=== PATIENT | female | born 1980 | race Hispanic/Latino ===

== ENCOUNTER 2019-09-27 14:05 | Emergency (ER) | payer OTHER, SELFPAY ==
[2019-09-27 14:25] VITALS: BP 134/93; PULSE 72; RESP 16; TEMP 37.1; O2SAT 98
--- NOTE | 2019-09-27 14:45 | ED.URI ---
HPI - URI/Sore Throat General Chief Complaint: Upper Respiratory Infection Stated Complaint: swollen face Time Seen by Provider: 09/27/19 14:28 Source: patient and RN notes reviewed Mode of arrival: ambulatory Limitations: no limitations History of Present Illness HPI Narrative: Patient presents today complaining of pain to her left maxillary sinus area and swelling. Reports this has been chronically occurring for the last 3 months with occasional associated ear pain, rhinorrhea. She was seen in June by her PCP who prescribed her doxycycline. States this worsened her symptoms, then she was placed on azithromycin, which did help. Recently she has been taking Sudafed, which has been providing relief. She is also been trying Tylenol, ibuprofen, Orajel, and Flonase. She does not believe the symptoms are related to dental issues. States that she has not been able to find an ENT recently. MD elicited complaint: sinus pain Related Data Home Medications Medication Instructions Recorded Confirmed citalopram mg 09/27/19 09/27/19 lubiprostone [Amitiza] mcg PO 09/27/19 Allergies Allergy/AdvReac Type Severity Reaction Status Date / Time amoxicillin AdvReac Nausea and Verified 09/27/19 14:30 Vomiting doxycycline AdvReac Anxiety Verified 09/27/19 14:30 Review of Systems Review of Systems: Narrative: CONSTITUTIONAL: Denies body aches, fever, chills, or sweats. EYES: Denies visual changes, redness, or discharge. ENT: Denies congestion, sore throat, or otalgia.+ Rhinorrhea, left ear pain, left sinus pain CARDIOVASCULAR: Denies chest pain, palpitations, or edema. RESPIRATORY: Denies cough or dyspnea. GASTROINTESTINAL: Denies abdominal pain, nausea, vomiting, or diarrhea. GENITOURINARY: Denies dysuria or hematuria. SKIN: Denies rash, itching, or wounds. MUSCULOSKELETAL: Denies back pain, joint pain, or myalgia. NEUROLOGIC: Denies headache, numbness, tingling, or weakness. PSYCH: Denies depression or anxiety. [facility] Past Medical History Medical History (Updated 09/27/19 @ 16:20 by Valencia Beth, BESSEMER CONVERTER BLOWER, ) Interstitial cystitis Irritable bowel syndrome Migraines Comments At time of signature, I have reviewed and agree with nursing past medical, surgical, social and family history unless otherwise noted. Please see nursing chart for further information. There is no relevant family history pertinent to the presenting complaint Exam Narrative: Exam Narrative: GENERAL: Well-appearing, well-nourished, and in no acute distress. HEAD: Normocephalic, atraumatic. EYES: EOMI. No redness or drainage. Conjunctivae normal. ENT: Mucous membranes pink and moist. Nares clear. No rhinorrhea. TMs normal bilaterally. Throat normal. Uvula midline. Abnormal dentition. Multiple missing teeth, broken teeth. No obvious periapical abscess or gingival swelling. No facial swelling noted. Tenderness to left maxillary sinus area. No erythema. Present teeth are nontender to percussion. NECK: Normal AROM. Supple. No lymphadenopathy. CHEST: No respiratory distress. EXTREMITIES: Normal range of motion. No edema. SKIN: Warm, dry, no rash. Capillary refill normal. Normal skin turgor. NEURO: No focal deficits. Alert and oriented x3. Gait steady. PSYCH: Normal affect. No signs of depression or anxiety. Course Vital Signs Vital signs: Vital Signs Temperature 98.8 F 09/27/19 14:25 Pulse Rate 72 09/27/19 14:25 Respiratory Rate 16 09/27/19 14:25 Blood Pressure 134/93 H 09/27/19 14:25 Pulse Oximetry 98 09/27/19 14:25 Temperature 98.8 F 09/27/19 14:25 Pulse Rate 72 09/27/19 14:25 Respiratory Rate 16 09/27/19 14:25 Blood Pressure 134/93 H 09/27/19 14:25 Pulse Oximetry 98 09/27/19 14:25 Reviewed. Pt has been instructed to follow up with her PCP regarding her elevated blood pressure today. MDM - URI/Sore Throat Differential Diagnosis Differential diagnosis: Likely otitis media, sinusitis and other
== END 2019-09-27 14:52 | disposition home or self-care (01) ==
PROVIDERS: Emergency Provider Nurse Practitioner; PCP Family Medicine
DX: J34.89 Other specified disorders of nose and nasal sinuses (principal); K58.9 Irritable bowel syndrome, unspecified; R03.0 Elevated blood-pressure reading, without diagnosis of hypertension
CPT/HCPCS: 99213; G0463

== ENCOUNTER 2020-05-10 11:53 | Outpatient (CLI) | payer OTHER, BC, SELFPAY ==
[2020-05-10 12:25] LABS: Basophils Absolute Auto 0.01 K/mm3 (0.00-0.10); Basophils Percent Auto 0.1 % (0.0-1.0); Eosinophils Absolute Auto 0.17 K/mm3 (0.02-0.50); Eosinophils Percent Auto 1.7 % (1.0-6.0); Hematocrit 38.8 % (35.0-49.0); Hemoglobin 12.8 g/dL (12.0-15.0); Immature Granulocyte Absolute 0.03 K/mm3 (0.00-0.00); Immature Granulocyte Percent A 0.3 % (0.0-0.0); Lymphocytes Absolute Auto 3.23 K/mm3 (1.10-4.50); Mean Corpuscular Hemoglobin 26.6 pg (27.0-31.0); Mean Corpuscular Volume 80.7 fL (78.0-102.0); Mean Platelet Volume 10.6 fl (9.2-11.8); Monocytes Absolute Auto 0.49 K/mm3 (0.10-0.90); Neutrophils Absolute Auto 5.9 K/mm3 (1.7-7.2); Neutrophils Percent Auto 59.9 % (50.0-70.0); Platelet Count Result 357 K/mm3 (150-420); Red Blood Count 4.81 M/mm3 (4.20-5.40); Red Cell Distribution Width 13.6 % (11.6-14.4); White Blood Count 9.8 K/mm3 (4.8-10.8)
[2020-05-10 12:45] LABS: Alanine Aminotransferase 6 U/L (14-59); Albumin Level 3.6 g/dL (3.4-5.0); Alkaline Phosphatase 105 U/L (46-116); Anion Gap 9 mmol/L (8-16); Aspartate Amino Transferase 13 U/L (15-37); Bilirubin,Total 0.4 mg/dL (0.00-1.00); Blood Urea Nitrogen 10 mg/dL (7-18); Carbon Dioxide 25 mmol/L (21-32); Chloride 104 mmol/L (98-108); Estimated Glomerular Filt Rate > 60; Glucose 82 mg/dL (70-99); Osmolality Calculated 284 mOsm/kg (285-295); Potassium 4.1 mmol/L (3.5-5.1); Sodium 138 mmol/L (136-145); Thyroid Stimulating Hormone 1.33 uIU/mL (0.36-3.74); Total Protein 8.1 g/dL (6.4-8.2); Troponin I 4.7 ng/L (0.00-60.4)
== END 2020-05-10 11:54 | disposition home or self-care (01) ==
LOC: CHSLAB 11:59
PROVIDERS: PCP Family Medicine; Visit Provider Family Medicine
DX: R42 Dizziness and giddiness (principal); R07.89 Other chest pain
CPT/HCPCS: 36415; 80053; 84443; 84484; 85025

== ENCOUNTER 2020-10-18 11:54 | Outpatient (CLI) | payer OTHER, BC, SELFPAY ==
--- NOTE | ~2020-10-18 | XR_ITS ---
EXAMINATION: XR abdomen obstructive series DATE: 10/18/2020 12:30 INDICATION: Abdominal pain TECHNIQUE: Supine and upright views of the abdomen. FINDINGS: 09/06/2013 The visualized lung parenchyma is normal.. There is a bowel gas pattern. Gas and stool are seen throu ghout the colon to the level of the rectum. There is no free air. There are surgical changes of vent ral hernia repair and cholecystectomy. IMPRESSION: 1. No acute abdominal abnormality. Reviewed, dictated and finalized at location B.
[2020-10-18 12:15] LABS: Basophils Absolute Auto 0.01 K/mm3 (0.00-0.10); Basophils Percent Auto 0.1 % (0.0-1.0); Eosinophils Absolute Auto 0.13 K/mm3 (0.02-0.50); Eosinophils Percent Auto 1.5 % (1.0-6.0); Hematocrit 40.7 % (35.0-49.0); Hemoglobin 13.2 g/dL (12.0-15.0); Immature Granulocyte Absolute 0.02 K/mm3 (0.00-0.00); Immature Granulocyte Percent A 0.2 % (0.0-0.0); Lymphocytes Absolute Auto 3.38 K/mm3 (1.10-4.50); Lymphocytes Percent Auto 37.7 % (18.0-42.0); Mean Corpuscular HGB Conc 32.4 g/dL (32.0-36.0); Mean Corpuscular Hemoglobin 26.8 pg (27.0-31.0); Mean Corpuscular Volume 82.7 fL (78.0-102.0); Mean Platelet Volume 10.8 fl (9.2-11.8); Monocytes Absolute Auto 0.45 K/mm3 (0.10-0.90); Neutrophils Percent Auto 55.5 % (50.0-70.0); Platelet Count Result 326 K/mm3 (150-420); Red Blood Count 4.92 M/mm3 (4.20-5.40); Red Cell Distribution Width 13.8 % (11.6-14.4)
[2020-10-18 12:16] LABS: Add Urine Microscopic? YES; Appearance Urine Sl Cloudy (Clear); Bilirubin Urine 1+ (Negative); Blood Urine Negative (Negative); Color Urine Yellow (Yellow); Glucose Urine UA Negative (Negative); Ketones Urine Negative (Negative); Leukocyte Esterase Ur Negative LEU/UL (Negative); Nitrate Urine Negative (Negative); Protein Urine Negative (Negative); Specific Grav Ur >= 1.030 (1.010-1.020)
[2020-10-18 12:27] LABS: RBC Urine 0-2 /hpf (0-2)
[2020-10-18 12:28] LABS: Bacteria Urine 3+ /hpf; Mucus Urine Moderate /lpf; Squamous Epithelial Cell Urine Few /hpf (Few); WBC Urine 0-3 /hpf (0-3)
[2020-10-18 13:03] LABS: Alanine Aminotransferase 46 U/L (14-59); Albumin Level 3.6 g/dL (3.4-5.0); Alkaline Phosphatase 123 U/L (46-116); Amylase 37 U/L (25-115); Anion Gap 11 mmol/L (8-16); Aspartate Amino Transferase 33 U/L (15-37); Bilirubin,Total 0.5 mg/dL (0.00-1.00); Blood Urea Nitrogen 8 mg/dL (7-18); Calcium 9.1 mg/dL (8.5-10.1); Carbon Dioxide 27 mmol/L (21-32); Chloride 104 mmol/L (98-108); Estimated Glomerular Filt Rate > 60; Glucose 89 mg/dL (70-99); Lipase 96 U/L (73-393); Osmolality Calculated 291 mOsm/kg (285-295); Potassium 3.7 mmol/L (3.5-5.1); Sodium 142 mmol/L (136-145); Thyroid Stimulating Hormone 0.69 uIU/mL (0.36-3.74); Total Protein 7.1 g/dL (6.4-8.2)
== END 2020-10-18 11:55 | disposition home or self-care (01) ==
PROVIDERS: PCP Family Medicine; Visit Provider Family Medicine
DX: R10.817 Generalized abdominal tenderness (principal); K59.00 Constipation, unspecified
CPT/HCPCS: 36415; 74019; 80053; 81001; 82150; 83690; 84443; 85025

== ENCOUNTER 2020-11-13 03:35 | Emergency (ER) | payer OTHER, BC, SELFPAY ==
[2020-11-13 03:44] VITALS: BP 139/82; PULSE 68; RESP 20; TEMP 36.7; O2SAT 99
--- NOTE | 2020-11-13 04:28 | PC.NURSE ---
Pt ambulatory to triage desk requesting update on wait time. This RN apologized and let pt know that all staff currently assisting with critical pts and unable to provide specific times. Pt then reported that she was 'just gonna go home.' This RN asked pt if she would sign an AMA form, to which pt responded Well, I wasn't seen. I'm not gonna be charged for this, am I? I then let pt know that I had no knowledge of the hospital's billing practices. Pt then left ED wr, ambulating out of lobby withe steady, even, unassisted gait. no vomiting, diarrhea, or s/s of distress seen during this visit. ED pharmacist in charge updated.
== END 2020-11-13 04:28 | disposition left against medical advice (07) ==
LOC: ANHED 04:44
PROVIDERS: PCP Family Medicine
DX: R10.32 Left lower quadrant pain (principal)
CPT/HCPCS: 99199

== ENCOUNTER 2020-11-15 11:02 | Outpatient (CLI) | payer OTHER, BC, SELFPAY ==
--- NOTE | ~2020-11-15 | XR_ITS ---
EXAMINATION: XR abdomen obstructive series DATE: 11/15/2020 11:52 INDICATION: Left lower quadrant pain TECHNIQUE: Upright and supine views of the abdomen were obtained. COMPARISON: 10/18/2020 FINDINGS: The bowel gas pattern is normal. No free intraperitoneal gas is identified. There are no di lated loops of bowel. Changes of mesh ventral hernia repair are noted. Surgical clips in the right up per quadrant are likely from prior cholecystectomy. The visualized lung bases are clear. IMPRESSION: 1. No radiographic correlate for the patient's symptoms. Reviewed, dictated and finalized at location B.
[2020-11-15 11:14] LABS: Basophils Absolute Auto 0.01 K/mm3 (0.00-0.10); Basophils Percent Auto 0.1 % (0.0-1.0); Eosinophils Absolute Auto 0.08 K/mm3 (0.02-0.50); Eosinophils Percent Auto 0.8 % (1.0-6.0); Hematocrit 42.5 % (35.0-49.0); Hemoglobin 13.9 g/dL (12.0-15.0); Immature Granulocyte Absolute 0.03 K/mm3 (0.00-0.00); Immature Granulocyte Percent A 0.3 % (0.0-0.0); Lymphocytes Absolute Auto 3.41 K/mm3 (1.10-4.50); Mean Corpuscular HGB Conc 32.7 g/dL (32.0-36.0); Mean Corpuscular Volume 82.7 fL (78.0-102.0); Mean Platelet Volume 10.8 fl (9.2-11.8); Neutrophils Percent Auto 59.8 % (50.0-70.0); Platelet Count Result 366 K/mm3 (150-420); Red Blood Count 5.14 M/mm3 (4.20-5.40); Red Cell Distribution Width 13.6 % (11.6-14.4)
[2020-11-15 11:19] LABS: Add Urine Microscopic? YES; Appearance Urine Clear (Clear); Bilirubin Urine 1+ (Negative); Blood Urine Negative (Negative); Color Urine Yellow (Yellow); Glucose Urine UA Negative (Negative); Ketones Urine Trace (Negative); Leukocyte Esterase Ur Negative LEU/UL (Negative); Nitrate Urine Negative (Negative); Protein Urine Negative (Negative); Specific Grav Ur >= 1.030 (1.010-1.020)
[2020-11-15 11:27] LABS: Bacteria Urine Trace /hpf; Mucus Urine Moderate /lpf; RBC Urine None seen /hpf (0-2); Squamous Epithelial Cell Urine Rare /hpf (Few); WBC Urine None seen /hpf (0-3)
[2020-11-15 12:18] LABS: Alanine Aminotransferase 22 U/L (14-59); Albumin Level 3.8 g/dL (3.4-5.0); Alkaline Phosphatase 123 U/L (46-116); Amylase 37 U/L (25-115); Anion Gap 13 mmol/L (8-16); Aspartate Amino Transferase 10 U/L (15-37); Bilirubin,Total 0.5 mg/dL (0.00-1.00); Blood Urea Nitrogen 9 mg/dL (7-18); Calcium 9.6 mg/dL (8.5-10.1); Carbon Dioxide 26 mmol/L (21-32); Chloride 105 mmol/L (98-108); Estimated Glomerular Filt Rate > 60; Glucose 82 mg/dL (70-99); Lipase 74 U/L (73-393); Osmolality Calculated 295 mOsm/kg (285-295); Potassium 4.2 mmol/L (3.5-5.1); Sodium 144 mmol/L (136-145); Total Protein 7.5 g/dL (6.4-8.2)
== END 2020-11-15 11:03 | disposition home or self-care (01) ==
PROVIDERS: PCP Family Medicine; Visit Provider Family Medicine
DX: R10.32 Left lower quadrant pain (principal)
CPT/HCPCS: 36415; 74019; 80053; 81001; 82150; 83690; 85025

== ENCOUNTER 2020-12-06 11:55 | Outpatient (CLI) | payer OTHER, BC, SELFPAY ==
--- NOTE | ~2020-12-06 | XR_ITS ---
XR thoracic spine 3V DATE: 12/06/2020 12:30 INDICATION: Back pain, chest pain TECHNIQUE: AP, lateral, swimmer views COMPARISON: None FINDINGS: There is mild degenerative spurring of the thoracic spine. No fracture or bone destruction. The thoracic pedicles are intact. No paraspinal soft tissue thickening. IMPRESSION: Mild degenerative spurring Reviewed, dictated and finalized at location A. IMPRESSION: Mild degenerative spurring
--- NOTE | ~2020-12-06 | XR_ITS ---
XR chest 2V DATE: 12/06/2020 12:29 INDICATION: Chest pain, back pain TECHNIQUE: PA and lateral views COMPARISON: 12/02/2018 2 view chest FINDINGS: Normal heart size. No hilar or mediastinal enlargement. No pulmonary infiltrate or consolid ation, pleural effusion or pulmonary vascular congestion or pneumothorax. Surgical clips overlie the upper abdomen on lateral view, likely due to cholecystectomy. IMPRESSION: No active cardiopulmonary disease Reviewed, dictated and finalized at location A.
--- NOTE | ~2020-12-06 | XR_ITS ---
XR lumbar spine 2-3V DATE: 12/06/2020 12:29 INDICATION: Back pain TECHNIQUE: AP, lateral, coned lateral lumbosacral views COMPARISON: 02/13/2016 lumbar spine FINDINGS: Normal alignment. Lumbar and lumbosacral interspaces are well preserved. No fracture or bon e destruction. The pedicles are intact. Lumbar and lumbosacral interspaces are well preserved. The sa croiliac joints appear normal. Status post ventral abdominal wall repair. Status post cholecystectomy. IMPRESSION: Normal lumbar spine Reviewed, dictated and finalized at location A. IMPRESSION: Normal lumbar spine
[2020-12-06 12:12] LABS: Basophils Absolute Auto 0.01 K/mm3 (0.00-0.10); Basophils Percent Auto 0.1 % (0.0-1.0); Eosinophils Absolute Auto 0.08 K/mm3 (0.02-0.50); Hematocrit 40.2 % (35.0-49.0); Hemoglobin 13.1 g/dL (12.0-15.0); Immature Granulocyte Absolute 0.02 K/mm3 (0.00-0.00); Immature Granulocyte Percent A 0.2 % (0.0-0.0); Lymphocytes Percent Auto 37.8 % (18.0-42.0); Mean Corpuscular HGB Conc 32.6 g/dL (32.0-36.0); Mean Corpuscular Hemoglobin 27.2 pg (27.0-31.0); Mean Corpuscular Volume 83.6 fL (78.0-102.0); Monocytes Absolute Auto 0.41 K/mm3 (0.10-0.90); Neutrophils Absolute Auto 4.6 K/mm3 (1.7-7.2); Neutrophils Percent Auto 55.9 % (50.0-70.0); Platelet Count Result 340 K/mm3 (150-420); Red Blood Count 4.81 M/mm3 (4.20-5.40); Red Cell Distribution Width 13.1 % (11.6-14.4); White Blood Count 8.2 K/mm3 (4.8-10.8)
[2020-12-06 12:37] LABS: Alanine Aminotransferase 40 U/L (14-59); Albumin Level 3.5 g/dL (3.4-5.0); Alkaline Phosphatase 118 U/L (46-116); Anion Gap 10 mmol/L (8-16); Aspartate Amino Transferase 18 U/L (15-37); Bilirubin,Total 0.3 mg/dL (0.00-1.00); Blood Urea Nitrogen 10 mg/dL (7-18); Carbon Dioxide 27 mmol/L (21-32); Chloride 106 mmol/L (98-108); Creatine Kinase 50 U/L (26-192); Estimated Glomerular Filt Rate > 60; Glucose 87 mg/dL (70-99); Osmolality Calculated 294 mOsm/kg (285-295); Potassium 3.6 mmol/L (3.5-5.1); Sodium 143 mmol/L (136-145); Thyroid Stimulating Hormone 0.76 uIU/mL (0.36-3.74); Total Protein 7.8 g/dL (6.4-8.2)
[2020-12-06 12:48] LABS: Creatine Kinase MB < 0.50 ng/mL (0.00-5.00); Troponin I < 4.0 ng/L (0.00-60.4)
== END 2020-12-06 11:56 | disposition home or self-care (01) ==
PROVIDERS: PCP Family Medicine; Visit Provider Family Medicine
DX: R07.9 Chest pain, unspecified (principal); M54.9 Dorsalgia, unspecified; K59.00 Constipation, unspecified
CPT/HCPCS: 36415; 71046; 72072; 72100; 80053; 82550; 82553; 84443; 84484; 85025

== ENCOUNTER 2020-12-21 09:05 | Outpatient (CLI) | payer OTHER, BC, SELFPAY | END 2020-12-21 09:06 | disposition home or self-care (01) | LOC: CHSCARD 09:08 | PROVIDERS: PCP Family Medicine; Visit Provider Family Medicine | DX: R06.00 Dyspnea, unspecified (principal) | CPT/HCPCS: 94060; 94726; 94729 ==

== ENCOUNTER 2021-02-28 16:13 | Outpatient (CLI) | payer OTHER, BC, SELFPAY ==
--- NOTE | ~2021-02-28 | XR_ITS ---
XR lumbar spine 2-3V DATE: 02/28/2021 16:53 INDICATION: Low back pain, right hip pain. TECHNIQUE: AP, lateral, coned lateral lumbosacral views COMPARISON: 12/06/2020 lumbar spine FINDINGS: Normal alignment of the lumbar spine. No fracture or bone destruction or spondylolisthesis. Lumbar and lumbosacral interspaces are well preserved. The pedicles are intact. The sacroiliac joint s appear normal. Status post cholecystectomy. Status post lower ventral abdominal wall repair. IMPRESSION: Normal lumbar spine Reviewed, dictated and finalized at location A. IMPRESSION: Normal lumbar spine
--- NOTE | ~2021-02-28 | XR_ITS ---
XR hip RT min 2V DATE: 02/28/2021 16:53 INDICATION: Right hip pain for 6 months. No injury. TECHNIQUE: AP and lateral views COMPARISON: None FINDINGS: No fracture or dislocation, avascular necrosis or bone destruction. Hip joint space is well preserved. The pubic symphysis and right sacral iliac joint are intact. Ventral abdominal wall hernia repair IMPRESSION: . Negative right hip Reviewed, dictated and finalized at location A. IMPRESSION: . Negative right hip
[2021-03-02 17:04] LABS: TB Skin Test Erythema 0 mm; TB Skin Test Induration 0 mm (0-10); TB Skin Test Site Right Arm
[2021-03-02 17:05] LABS: TB Skin Test Interpretation Negative (Negative)
== END 2021-02-28 16:14 | disposition home or self-care (01) ==
LOC: CHSLAB 16:16
PROVIDERS: PCP Family Medicine; Visit Provider Family Medicine
DX: Z11.1 Encounter for screening for respiratory tuberculosis (principal); M25.551 Pain in right hip; M54.50 Low back pain, unspecified
CPT/HCPCS: 36415; 72100; 73502; 86580

== ENCOUNTER 2021-03-15 16:01 | Outpatient (CLI) | payer OTHER, SELFPAY ==
--- NOTE | ~2021-03-15 | XR_ITS ---
EXAMINATION: XR chest 2V EXAM DATE: 03/15/2021 16:37 INDICATION: anterior upper chest pain x5 days w/ SOB. TECHNIQUE: Frontal and lateral projections of the chest obtained and reviewed. Comparison is made to prior examination from 12/06/2020. FINDINGS: The lungs are clear. There are no pleural effusions. The cardiomediastinal silhouette is within normal limits. There is no pneumothorax suspected. The bones and soft tissues are unremarkab le. There are cholecystectomy clips. IMPRESSION: Normal chest x-ray exam. Reviewed, dictated and finalized at location B. 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
[2021-03-15 16:19] LABS: Basophils Absolute Auto 0.02 K/mm3 (0.00-0.10); Basophils Percent Auto 0.2 % (0.0-1.0); Eosinophils Absolute Auto 0.09 K/mm3 (0.02-0.50); Eosinophils Percent Auto 1.1 % (1.0-6.0); Hematocrit 41.6 % (35.0-49.0); Hemoglobin 13.2 g/dL (12.0-15.0); Immature Granulocyte Absolute 0.03 K/mm3 (0.00-0.00); Immature Granulocyte Percent A 0.4 % (0.0-0.0); Lymphocytes Absolute Auto 2.48 K/mm3 (1.10-4.50); Lymphocytes Percent Auto 29.3 % (18.0-42.0); Mean Corpuscular HGB Conc 31.7 g/dL (32.0-36.0); Mean Corpuscular Hemoglobin 26.3 pg (27.0-31.0); Mean Platelet Volume 10.3 fl (9.2-11.8); Monocytes Absolute Auto 0.34 K/mm3 (0.10-0.90); Neutrophils Absolute Auto 5.5 K/mm3 (1.7-7.2); Platelet Count Result 364 K/mm3 (150-420); Red Blood Count 5.01 M/mm3 (4.20-5.40); Red Cell Distribution Width 13.7 % (11.6-14.4); White Blood Count 8.5 K/mm3 (4.8-10.8)
[2021-03-15 16:39] LABS: D Dimer 0.65 mg/L (0.19-0.50)
[2021-03-15 16:45] LABS: Alanine Aminotransferase 16 U/L (14-59); Albumin Level 3.7 g/dL (3.4-5.0); Alkaline Phosphatase 114 U/L (46-116); Anion Gap 11 mmol/L (8-16); Aspartate Amino Transferase < 10 U/L (15-37); Bilirubin,Total 0.4 mg/dL (0.00-1.00); Blood Urea Nitrogen 11 mg/dL (7-18); Calcium 8.9 mg/dL (8.5-10.1); Carbon Dioxide 25 mmol/L (21-32); Chloride 104 mmol/L (98-108); Estimated Glomerular Filt Rate > 60; Glucose 91 mg/dL (70-99); Osmolality Calculated 289 mOsm/kg (285-295); Potassium 3.7 mmol/L (3.5-5.1); Sodium 140 mmol/L (136-145); Total Protein 7.6 g/dL (6.4-8.2); Troponin I 4.5 ng/L (0.00-60.4)
[2021-03-15 16:46] LABS: Creatine Kinase MB < 0.50 ng/mL (0.00-5.00)
== END 2021-03-15 16:02 | disposition home or self-care (01) ==
LOC: CHSLAB 16:03
PROVIDERS: PCP Family Medicine; Visit Provider Family Medicine
DX: R07.89 Other chest pain (principal)
CPT/HCPCS: 36415; 71046; 80053; 82553; 84484; 85025; 85380

== ENCOUNTER 2021-03-15 16:57 | Emergency (ER) | payer OTHER, SELFPAY ==
--- NOTE | ~2021-03-15 | CT_ITS ---
EXAMINATION: CTA chest PE protocol DATE: 03/15/2021 17:52 INDICATION: 5 days of chest pain and shortness of breath TECHNIQUE: Computed tomography (CT) pulmonary angiogram of the chest was performed with 100 mL Omnipa que-350 intravenous contrast. Additional 3D reconstructions utilizing coronal maximum intensity proje ction (MIP) were performed. The dose-length product was 836.53 mGy-cm. COMPARISON: None FINDINGS: Excellent contrast opacification of the pulmonary arteries. There is mild streak artifact from dense contrast in the superior vena cava and right atrium. No significant motion artifact yielding diagnost ic quality study which demonstrates no pulmonary embolism. No pneumonia, pulmonary edema, pleural eff usion or pneumothorax. Heart size is normal. No pericardial effusion. Thoracic aorta is normal in leslye iber with no dissection. No pathologically enlarged thoracic lymphadenopathy. Visualized upper abdome n and bones are unremarkable. IMPRESSION: 1. No pulmonary embolism or other acute cardiopulmonary disease. Reviewed, dictated and finalized at location A. 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
--- NOTE | 2021-03-15 17:05 | ED.RECABL ---
HPI - Recheck/Abnormal Lab/Rx General Chief Complaint: Unspecified Stated Complaint: high d dimer Source: patient and RN notes reviewed Mode of arrival: ambulatory Limitations: no limitations History of Present Illness HPI narrative: Patient has been having some burning in her chest and feeling short of breath at times for the last 5 days. She called her doctor today and had some outpatient labs done. One of them was a D-dimer that was subsequently elevated. She comes in now because she was told to come in because of the elevated D-dimer. She has no pain in her calves. She is not been injured, immobilized for the last 4 weeks, she is not on any estrogen, she is also a nonsmoker. MD complaint: abnormal lab Returns today for: called because of abnormal lab/test Associated symptoms: chest pain and shortness of breath Related Data Home Medications Medication Instructions Recorded Confirmed citalopram [Celexa] 40 mg PO DAILY 09/27/19 03/15/21 lubiprostone [Amitiza] 8 mcg PO DAILY 09/27/19 03/15/21 metoclopramide HCl [Reglan] 10 mg PO Q6H PRN 03/15/21 03/15/21 pregabalin [Lyrica] 150 mg PO DAILY 03/15/21 03/15/21 Allergies Allergy/AdvReac Type Severity Reaction Status Date / Time amoxicillin AdvReac Nausea and Verified 11/13/20 03:52 Vomiting doxycycline AdvReac Anxiety Verified 11/13/20 03:52 Sulfa (Sulfonamide AdvReac Nausea Verified 03/15/21 17:23 Antibiotics) Review of Systems Review of Systems: All systems reviewed & are unremarkable except as noted in HPI and below PMFSH Past Medical History Medical History (Updated 03/15/21 @ 18:24 by Denton Gore MD) Fibromyalgia Interstitial cystitis Irritable bowel syndrome Migraines Surgical History Surgical History (Updated 03/15/21 @ 17:28 by Denton Gore MD) H/O: hysterectomy History of ventral hernia repair Hx of cholecystectomy Exam Const: General: healthy appearing and no acute distress Nutritional Appearance: well nourished and obese centrally obese Orientation/consciousness: patient oriented x3 Other: female nurse in room during examination. HENMT: Head: normal to inspection Ears: external ears normal Face and sinus: normal facial exam Eyes: Conjunctivae: conjunctivae normal Pupils: Equal, round and reactive pupils present EOM: EOMs intact bilaterally Neck: Neck: normal visual inspection Resp: Effort & Inspection: normal respiratory effort Auscultation: clear to auscultation bilaterally Cardio: Rate: regular rate Rhythm: regular rhythm GI: Auscultation: normal bowel sounds Back/Spine/Pelvis: Cervical Spine: cervical ROM normal Thoracic/Lumbar Spine: thoraco-lumbar ROM normal Extrem: General: normal to inspection, no clubbing, cyanosis or edema and no calf tenderness Psych: Appearance: grossly normal and well kempt Mental Status: mental status grossly normal Affect: normal affect Attitude: cooperative Thought content: Yes Normal thought content present Course Course Emergency Course: I reviewed outpatient labs including CBC, CMP, troponin, D-dimer which is the only thing abnormal. I discussed with the patient her 4 PEPS score which is a -3 indicating a very low probability for pulmonary embolism. After discussion patient still wanted to proceed with CT scan for PE study of her lungs. Vital Signs Vital signs: Vital Signs Temperature 36.4 C 03/15/21 17:32 Pulse Rate 60 03/15/21 17:32 Respiratory Rate 16 03/15/21 17:32 Blood Pressure 155/86 H 03/15/21 17:32 Pulse Oximetry 100 03/15/21 17:32 Temperature 36.6 C 03/15/21 18:37 Pulse Rate 66 03/15/21 18:37 Respiratory Rate 16 03/15/21 18:37 Blood Pressure 150/67 H 03/15/21 18:37 Pulse Oximetry 100 03/15/21 18:37 MDM - Recheck/Abnormal Lab/Rx Lab Data Attestation: I reviewed the patient's lab results. Imaging Data Radiologist's impression: CT negative for PE or any other abnormality. Discharge Plan Discharge Clin[facility]
[2021-03-15 17:32] VITALS: BP 155/86; PULSE 60; RESP 16; TEMP 36.4; O2SAT 100
[2021-03-15 18:37] VITALS: BP 150/67; PULSE 66; RESP 16; TEMP 36.6; O2SAT 100
== END 2021-03-15 18:38 | disposition home or self-care (01) ==
PROVIDERS: Emergency Provider Emergency Medicine; PCP Family Medicine
DX: R07.89 Other chest pain (principal)
CPT/HCPCS: 71275; 99282; 99284; Q9967

== ENCOUNTER 2021-04-17 15:44 | Outpatient (CLI) | payer OTHER, SELFPAY ==
[2021-04-17 17:52] LABS: SARS-CoV-2 RNA PCR Negative (Negative)
== END 2021-04-17 15:45 | disposition home or self-care (01) ==
LOC: CHSLAB 15:46
PROVIDERS: PCP Family Medicine; Visit Provider Family Medicine
DX: J00 Acute nasopharyngitis [common cold] (principal); Z20.822 Contact with and (suspected) exposure to COVID-19
CPT/HCPCS: C9803; U0003; U0005

== ENCOUNTER 2021-05-10 09:51 | Outpatient (CLI) | payer BC, SELFPAY ==
--- NOTE | ~2021-05-10 | XR_ITS ---
EXAMINATION: XR chest 2V DATE: 05/10/2021 10:29 INDICATION: Cough. TECHNIQUE: Frontal and lateral views of the chest were obtained. COMPARISON: Chest 2 views 03/15/2021 FINDINGS: The chest demonstrates clear lungs without pneumonia, pleural effusion, or pneumothorax. Th e heart size is normal. Surgical clips in the right upper quadrant are likely from cholecystectomy. IMPRESSION: 1. No acute cardiopulmonary disease. Reviewed, dictated and finalized at location B. 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
[2021-05-10 10:11] LABS: Basophils Absolute Auto 0.01 K/mm3 (0.00-0.10); Basophils Percent Auto 0.1 % (0.0-1.0); Eosinophils Absolute Auto 0.08 K/mm3 (0.02-0.50); Eosinophils Percent Auto 1.1 % (1.0-6.0); Hematocrit 44.3 % (35.0-49.0); Hemoglobin 14.4 g/dL (12.0-15.0); Immature Granulocyte Absolute 0.02 K/mm3 (0.00-0.00); Immature Granulocyte Percent A 0.3 % (0.0-0.0); Lymphocytes Absolute Auto 2.79 K/mm3 (1.10-4.50); Lymphocytes Percent Auto 36.9 % (18.0-42.0); Mean Corpuscular HGB Conc 32.5 g/dL (32.0-36.0); Mean Corpuscular Hemoglobin 26.7 pg (27.0-31.0); Mean Corpuscular Volume 82.2 fL (78.0-102.0); Mean Platelet Volume 10.7 fl (9.2-11.8); Monocytes Percent Auto 5.3 % (2.0-11.0); Neutrophils Absolute Auto 4.3 K/mm3 (1.7-7.2); Neutrophils Percent Auto 56.3 % (50.0-70.0); Platelet Count Result 390 K/mm3 (150-420); Red Blood Count 5.39 M/mm3 (4.20-5.40); Red Cell Distribution Width 13.5 % (11.6-14.4); White Blood Count 7.6 K/mm3 (4.8-10.8)
[2021-05-10 10:34] LABS: Alanine Aminotransferase 13 U/L (14-59); Albumin Level 3.8 g/dL (3.4-5.0); Alkaline Phosphatase 114 U/L (46-116); Anion Gap 10 mmol/L (8-16); Aspartate Amino Transferase < 10 U/L (15-37); Bilirubin,Total 0.5 mg/dL (0.00-1.00); Blood Urea Nitrogen 9 mg/dL (7-18); Calcium 9.1 mg/dL (8.5-10.1); Carbon Dioxide 27 mmol/L (21-32); Chloride 103 mmol/L (98-108); Creatine Kinase 38 U/L (26-192); Estimated Glomerular Filt Rate > 60; Glucose 88 mg/dL (70-99); Lactate Dehydrogenase 122 U/L (81-234); Osmolality Calculated 287 mOsm/kg (285-295); Potassium 3.7 mmol/L (3.5-5.1); Sodium 140 mmol/L (136-145); Total Protein 8.1 g/dL (6.4-8.2); Troponin I 8.5 ng/L (0.00-60.4)
[2021-05-10 10:49] LABS: Creatine Kinase MB < 0.50 ng/mL (0.00-5.00)
== END 2021-05-10 09:52 | disposition home or self-care (01) ==
LOC: CHSLAB 09:59
PROVIDERS: PCP Family Medicine; Visit Provider Family Medicine
DX: R07.89 Other chest pain (principal); R05.9 Cough, unspecified
CPT/HCPCS: 36415; 71046; 80053; 82550; 82553; 83615; 84484; 85025

== ENCOUNTER 2021-05-20 14:16 | Outpatient (CLI) | payer BC, SELFPAY ==
--- NOTE | 2021-05-20 14:25 | ECHO_ITS ---
Patient Info Name: Esequiel Jones Age: 40 years : 1980 Gender: Female Ht: 62 in Wt: 203 lbs BSA: 2.05 m2 HR: 77 bpm BP: 121 / 63 mmHg Technical Quality: Good Exam Date: 05/20/2021 3:12 PM Exam Location: [facility] EM[facility] Patient Status: Outpatient Admit Date: 05/20/2021 Staff Ordering Physician: Jean Carlos Covarrubias MD Railroad Signal And Switch Operator: Linda Moss Attending Provider: Jean Carlos Covarrubias MD Referring Physician: Marci CABA; Exam Type: CA echo doppler color flow Study Info Indications R94.31 - Abnormal electrocardiogram ECG EKG Complete two-dimensional, color flow and Doppler transthoracic echocardiogram is performed. Strain analysis performed. Summary 1. Complete two-dimensional, color flow and Doppler transthoracic echocardiogram is performed. 2. Left ventricular chamber dimension is normal. 3. Left ventricular systolic function is normal, estimated at 60-65%. 4. The left ventricular diastolic function is normal. 5. E/e' 5 is not elevated. 6. Global longitudinal strain is normal at -18.5%. Left Ventricle E/e' 5 is not elevated. Global longitudinal strain is normal at -18.5%. Left ventricular chamber dimension is normal. Left ventricular systolic function is normal, estimated at 60-65%. The left ventricular diastolic function is normal. Right Ventricle Right ventricular chamber dimension is normal. Right ventricular systolic function is normal. Left Atria Left atrial chamber dimension is normal. Right Atria Right atrial chamber dimension is normal. Aortic Valve The aortic valve is trileaflet. There is no aortic valve stenosis. There is no aortic valve regurgitation. Pulmonic Valve There is no pulmonic regurgitation. Mitral Valve There is no mitral valve stenosis. There is no mitral valve regurgitation. Tricuspid Valve There is no tricuspid valve regurgitation. Pericardium/Pleural There is no pericardial effusion. Inferior Vena Cava Normal inferior vena cava with >50% collapse upon inspiration consistent with normal right atrial pressure, 5 mmHg. Aorta The aortic root size at the sinus of Valsalva is normal. Left Ventricular Outflow Tract Name Value Normal LVOT 2D LVOT Diameter 2.0 cm LVOT Doppler LVOT Peak Velocity 127 cm/s LVOT Peak Gradient 6 mmHg LVOT Mean Gradient 3 mmHg LVOT VTI 26 cm LVOT VTI/AV VTI Ratio 0.9 LVOT Stroke Volume 84 ml Mitral Valve Name Value Normal MV Doppler MV Decel [place] 433 cm/s2 MV PHT 49 ms MV Area (PHT) 4.5 cm2 4.0-5.0 MV Diastolic Function
== END 2021-05-20 14:17 | disposition home or self-care (01) ==
LOC: CHSIMG 14:18
PROVIDERS: PCP Family Medicine; Visit Provider Family Medicine
DX: R94.31 Abnormal electrocardiogram [ECG] [EKG] (principal)
CPT/HCPCS: 93306

== ENCOUNTER 2021-08-07 13:53 | Outpatient (CLI) | payer BC, OTHER, SELFPAY ==
[2021-08-07 14:10] LABS: Basophils Absolute Auto 0.01 K/mm3 (0.00-0.10); Basophils Percent Auto 0.1 % (0.0-1.0); Eosinophils Absolute Auto 0.09 K/mm3 (0.02-0.50); Eosinophils Percent Auto 1.1 % (1.0-6.0); Hematocrit 42.2 % (35.0-49.0); Hemoglobin 13.5 g/dL (12.0-15.0); Immature Granulocyte Absolute 0.03 K/mm3 (0.00-0.00); Immature Granulocyte Percent A 0.4 % (0.0-0.0); Lymphocytes Absolute Auto 2.32 K/mm3 (1.10-4.50); Lymphocytes Percent Auto 28.9 % (18.0-42.0); Mean Corpuscular Hemoglobin 26.7 pg (27.0-31.0); Mean Corpuscular Volume 83.6 fL (78.0-102.0); Mean Platelet Volume 10.1 fl (9.2-11.8); Monocytes Absolute Auto 0.36 K/mm3 (0.10-0.90); Monocytes Percent Auto 4.5 % (2.0-11.0); Neutrophils Absolute Auto 5.2 K/mm3 (1.7-7.2); Platelet Count Result 366 K/mm3 (150-420); Red Blood Count 5.05 M/mm3 (4.20-5.40); Red Cell Distribution Width 13.2 % (11.6-14.4)
[2021-08-07 14:40] LABS: Alanine Aminotransferase 16 U/L (14-59); Albumin Level 3.7 g/dL (3.4-5.0); Alkaline Phosphatase 106 U/L (46-116); Anion Gap 6 mmol/L (8-16); Aspartate Amino Transferase 10 U/L (15-37); Bilirubin,Total 0.3 mg/dL (0.00-1.00); Blood Urea Nitrogen 11 mg/dL (7-18); Calcium 9.1 mg/dL (8.5-10.1); Carbon Dioxide 28 mmol/L (21-32); Chloride 104 mmol/L (98-108); Creatine Kinase 50 U/L (26-192); Estimated Glomerular Filt Rate > 60; Glucose 82 mg/dL (70-99); Osmolality Calculated 284 mOsm/kg (285-295); Potassium 4.2 mmol/L (3.5-5.1); Sodium 138 mmol/L (136-145); Total Protein 7.8 g/dL (6.4-8.2)
[2021-08-10 14:13] LABS: Vitamin D 25 Hydroxy 32 ng/mL (30-100)
== END 2021-08-07 13:54 | disposition home or self-care (01) ==
LOC: CHSLAB 13:59
PROVIDERS: PCP Family Medicine; Visit Provider Family Medicine
DX: R00.2 Palpitations (principal); E55.9 Vitamin D deficiency, unspecified
CPT/HCPCS: 36415; 80053; 82306; 82550; 82553; 84484; 85025

== ENCOUNTER 2021-09-05 15:20 | Outpatient (CLI) | payer BC, SELFPAY ==
[2021-09-05 16:14] LABS: Influenza A QL RT-PCR Negative (Negative); Influenza B QL RT-PCR Negative (Negative); SARS-CoV-2 RNA PCR Negative (Negative)
== END 2021-09-05 15:21 | disposition home or self-care (01) ==
LOC: CHSLAB 15:23
PROVIDERS: PCP Family Medicine; Visit Provider Family Medicine
DX: R05.9 Cough, unspecified (principal); Z20.822 Contact with and (suspected) exposure to COVID-19
CPT/HCPCS: 87502; C9803; U0003; U0005

== ENCOUNTER 2022-01-25 17:24 | Emergency (ER) | payer BC, SELFPAY ==
--- NOTE | ~2022-01-25 | CT_ITS ---
EXAMINATION: CT abdomen pelvis wo con DATE: 01/25/2022 21:03 INDICATION: R flank pain, Hx of stones TECHNIQUE: Computed tomography (CT) of the abdomen and pelvis was performed without intravenous contr ast. Automated exposure control and iterative reconstruction technique were employed. The dose-length product was 658.78 mGy-cm. COMPARISON: 02/01/2016. FINDINGS: Lower thorax: Unremarkable Liver: Normal. Biliary/Gallbladder: Gallbladder is absent. No bile duct dilation. Pancreas: No mass or duct dilation. Spleen: Normal. Adrenals:No mass. Kidneys: Punctate nonobstructive left midpole and right upper pole calculi. No suspicious mass. No hy dronephrosis. GI tract: No small or large bowel dilation. Appendix not visualized Diverticulosis without diverticul itis. Mesentery/Peritoneum: No ascites, mass, or free air. Retroperitoneum: No mass. Pelvis: Absent uterus, remaining pelvic organs are within normal limits. Soft Tissues: Hernia mesh anchors in the mid abdominal wall Bones: No acute osseous finding. IMPRESSION: No acute abdominopelvic process detected. Reviewed, dictated and finalized at location K.
--- NOTE | ~2022-01-25 | CT_ITS ---
EXAMINATION: CTA chest PE protocol DATE: 01/26/2022 01:02 INDICATION: elevated dimer, flank pain w/ inspiration TECHNIQUE: Computed tomography angiography (CTA) of the chest was performed with 100 mL Omnipaque-350 intravenous contrast timed to evaluate the pulmonary arteries. Coronal maximum intensity projection 3D-reconstructions were created by the technologist. The dose-length product (DLP) was 916.06 mGy-cm. Automated exposure control and iterative reconstruction technique were employed. COMPARISON: 03/15/2021. FINDINGS: Lung parenchyma and airways: Clear. Pleura: Unremarkable. Thoracic inlet, axillae and chest wall: Unremarkable. Thoracic aorta: Normal. Mediastinum: Normal. Heart and pericardium: Normal. Coronary artery calcifications: Absent. Upper abdomen: No significant finding. Bones: No acute osseous finding. Pulmonary arteries: Study quality: Adequate. No pulmonary emboli detected. IMPRESSION: No CT evidence of acute pulmonary embolus. Reviewed, dictated and finalized at location K.
[2022-01-25 17:28] VITALS: BP 165/91; PULSE 72; RESP 16; TEMP 36.9; O2SAT 100
--- NOTE | 2022-01-25 17:52 | ED.ABDPAIN ---
HPI - Abdominal Pain General Chief Complaint: Abdominal Pain <WILLOW Turcios Last Filed: 01/25/22 18:59> Stated Complaint: right flank pain <WILLOW Turcios Last Filed: 01/25/22 18:59> Time Seen by Provider: 01/25/22 17:37 <WILLOW Turcios Last Filed: 01/25/22 18:59> Source: patient <WILLOW Turcios Last Filed: 01/25/22 18:59> Mode of arrival: ambulatory <WILLOW Turcios Last Filed: 01/25/22 18:59> Limitations: no limitations <WILLOW Turcios Last Filed: 01/25/22 18:59> History of Present Illness HPI narrative: Patient is a 41-year-old female who presents to the ED with report of R flank pain. Patient reports a Hx of interstitial cystitis and kidney stones. She states she has had intermittent pain in her R flank over the last 1.5 months. She has had increasing pain since yesterday. Today pain became so intense, which prompted her presentation. Pain does radiate up and down her back and around to her right-sided abdomen. Reports nausea, but denies vomiting. Also reports urinary pressure, urgency, and frequency, but denies dysuria or hematuria. No diarrhea or constipation. <WILLOW Turcios Last Filed: 01/25/22 18:59> Related Data Home Medications: Home Medications Medication Instructions Recorded Confirmed citalopram 40 mg tablet (Celexa) 40 mg PO DAILY 09/27/19 03/15/21 lubiprostone 8 mcg capsule 8 mcg PO DAILY 09/27/19 03/15/21 (Amitiza) metoclopramide HCl 10 mg tablet 10 mg PO Q6H PRN Nausea 03/15/21 03/15/21 (Reglan) pregabalin 150 mg capsule (Lyrica) 150 mg PO DAILY 03/15/21 03/15/21 <WILLOW Turcios Last Filed: 01/25/22 18:59> Allergies/Adverse Reactions: Allergies Allergy/AdvReac Type Severity Reaction Status Date / Time amoxicillin AdvReac Nausea and Verified 11/13/20 03:52 Vomiting doxycycline AdvReac Anxiety Verified 11/13/20 03:52 Sulfa (Sulfonamide AdvReac Nausea Verified 03/15/21 17:23 Antibiotics) <Nicolle Montilla PA-C - Last Filed: 01/25/22 18:59> Review of Systems Review of Systems: CONSTITUTIONAL: Denies fever, chills, or sweats. CARDIOVASCULAR: Denies chest pain. RESPIRATORY: Denies dyspnea. GASTROINTESTINAL: Reports right-sided abdominal pain, radiated from flank, nausea. Denies constipation or diarrhea. GENITOURINARY: Reports urinary frequency, urgency, pressure. Denies dysuria or hematuria. MUSCULOSKELETAL: Reports right flank pain. <Nicolle Montilla PA-C - Last Filed: 01/25/22 18:59> All systems reviewed & are unremarkable except as noted in HPI and below <Nicolle Montilla PA-C - Last Filed: 01/25/22 18:59> [facility] Past Medical History Medical History: Medical History (Updated 01/25/22 @ 18:08 by Nicolle Montilla PA-C) Fibromyalgia History of kidney stones Interstitial cystitis Irritable bowel syndrome Migraines <Nicolle Montilla PA-C - Last Filed: 01/25/22 18:59> Surgical History Surgical History: Surgical History H/O: hysterectomy History of ventral hernia repair Hx of cholecystectomy <Nicolle Montilla PA-C - Last Filed: 01/25/22 18:59> Social History Social History: Social History Smoking status: Never smoker <Nicolle Montilla PA-C - Last Filed: 01/25/22 18:59> Exam Narrative: GENERAL: Well appearing, morbidly obese, non-toxic, in no acute distress. HEAD: Normocephalic, atraumatic. NECK: Supple. No adenopathy, no masses. RESPIRATORY: Airway patent, respirations nonlabored. Clear to auscultation bilaterally, no rales, rhonchi, wheezing. CARDIOVASCULAR: Regular rate and rhythm without murmurs, rubs, or gallops. Peripheral pulses 2+ and equal bilaterally. ABDOMINAL: Soft, mild tenderness to palpation in right upper quadrant, e
[2022-01-25 18:09] LABS: Basophils Percent Auto 0.2 % (0.2-1.2); Eosinophils Absolute Auto 0.1 K/mm3 (0-0.3); Eosinophils Percent Auto 1.1 % (0-4.4); Hematocrit 39.7 % (37.0-47.0); Immature Granulocyte Absolute 0.03 K/mm3 (0.00-0.031); Immature Granulocyte Percent A 0.3 % (0-0.5); Lymphocytes Absolute Auto 2.52 K/mm3 (0.9-3.2); Lymphocytes Percent Auto 28.8 % (18.3-44.2); Mean Corpuscular HGB Conc 32.7 g/dl (32-36); Mean Corpuscular Hemoglobin 26.9 pg (26-34); Mean Corpuscular Volume 82.2 fl (80-100); Mean Platelet Volume 10.1 fl (7.4-10.4); Monocytes Absolute Auto 0.5 K/mm3 (0.1-0.6); Monocytes Percent Auto 5.9 % (2.6-8.5); Neutrophils Absolute Auto 5.6 K/mm3 (1.3-6.7); Neutrophils Percent Auto 63.7 % (45.5-73.1); Platelet Count Result 337 k/mm3 (150-375); Red Blood Count 4.83 M/mm3 (4.2-5.4); Red Cell Distribution Width 13.9 % (11.5-14.5); White Blood Count 8.8 K/mm3 (4.5-10.0)
[2022-01-25 18:20] LABS: Alanine Aminotransferase 18 U/L (6-35); Albumin Level 4.2 g/dL (3.5-5.1); Alkaline Phosphatase 117 U/L (38-126); Anion Gap 9 mmol/L (8-16); Aspartate Amino Transferase 19 U/L (14-36); Bilirubin,Total 0.4 mg/dL (0.2-1.3); Blood Urea Nitrogen 7 mg/dL (7-17); Calcium 8.7 mg/dL (8.4-10.2); Carbon Dioxide 25 mmol/L (22-30); Chloride 107 mmol/L (98-107); Estimated CRCL calculation 92 ml/min; Estimated Glomerular Filt Rate > 60; Glucose 90 mg/dL (65-110); Lipase 162 U/L (23-300); Potassium 3.9 mmol/L (3.4-5.0); Sodium 141 mmol/L (137-145)
[2022-01-25 18:23] LABS: Appearance Urine Clear (Clear); Bilirubin Urine Negative (Negative); Blood Urine Negative (Negative); Color Urine Yellow (Yellow); Glucose Urine UA Negative (Negative); Ketones Urine Negative (Negative); Leukocyte Esterase Ur Negative LEU/UL (Negative); Nitrate Urine Negative (Negative); Protein Urine Negative (Negative); Specific Grav Ur 1.015 (1.001-1.035); Urobilinogen Urine 0.2 mg/dL (<2.0)
[2022-01-25] MEDS: SODIUM CHLORIDE 0.9% IV 1,000 ML 999 ML IV CONT (18:23)
[2022-01-25] MEDS: ONDANSETRON INJ 4 MG/2 ML VIAL IV PUSH ×2 (18:23→22:35)
[2022-01-25 18:57] LABS: Mucus Urine Rare /lpf; RBC Urine 0-2 /hpf (0-2); Squamous Epithelial Cell Urine Rare /hpf (Few)
[2022-01-25 19:02] LABS: Add Urine Microscopic? NO
[2022-01-25 19:35] VITALS: BP 138/55; PULSE 63; RESP 20; O2SAT 99
[2022-01-25] MEDS: KETOROLAC 30 MG/ML VIAL (*BKC) IV PUSH (22:12)
[2022-01-25 22:15] VITALS: BP 130/68; PULSE 65; RESP 20; O2SAT 97
[2022-01-25 23:06] LABS: D Dimer 0.62 ug/mL (<0.48)
--- NOTE | 2022-01-25 23:43 | PC.NURSE ---
Assumed care of pt at this time. information technology professor attempted to take pt for CTA. Pt refused, stating to this RN I know my body. I know there's something wrong with my kidneys . This RN attempted to explain to pt the purpose of CTA as indicated by elevated d-dimer. Pt states I know, I know. Lets just do an EKG and I can call my lamination builder in the morning . THERESA Rowan notified. New orders placed.
--- NOTE | 2022-01-25 23:47 | ECG_ITS ---
Measurements Intervals [place] Rate: 62 P: 32 WI: 156 QRS: 2 QRSD: 93 T: 26 QT: 421 QTc: 428 Interpretive Statements SINUS RHYTHM INCOMPLETE RIGHT TAMARA BRANCH BLOCK NO PREVIOUS ECG AVAILABLE FOR COMPARISON Electronically Signed On 01-26-2022 17:44:34 CDT by Kailyn Carson M.D.
[2022-01-25 23:52] VITALS: BP 126/68; PULSE 62; RESP 16; O2SAT 99
== END 2022-01-26 02:42 | disposition home or self-care (01) ==
PROVIDERS: Physician Assistant; Emergency Provider Emergency Medicine; PCP Family Medicine
DX: R10.9 Unspecified abdominal pain (principal); N30.10 Interstitial cystitis (chronic) without hematuria; M79.7 Fibromyalgia; K58.9 Irritable bowel syndrome, unspecified; Z87.442 Personal history of urinary calculi; Z90.710 Acquired absence of both cervix and uterus; I45.10 Unspecified right bundle-branch block
CPT/HCPCS: 36415; 71275; 74176; 80053; 81003; 81025; 83690; 85025; 85380; 93005; 96365; 96375; 96376; 99284; J0131; J1885; J2405; J7030; Q9967

== ENCOUNTER 2022-07-29 14:52 | Emergency (ER) | payer BC, SELFPAY ==
--- NOTE | ~2022-07-29 | XR_ITS ---
EXAMINATION: XR chest 2V DATE: 07/29/2022 15:48 INDICATION: Chest pain, palpitations TECHNIQUE: PA and lateral views of the chest are obtained. COMPARISON: 05/10/2021 FINDINGS: The lungs are free of acute opacities. No pleural effusion or pneumothorax. The cardiomedia stinal silhouette is normal. There is mild thoracic spondylosis. IMPRESSION: 1. No acute cardiopulmonary abnormality. Reviewed, dictated and finalized at location L.
--- NOTE | 2022-07-29 14:54 | ECG_ITS ---
Measurements Intervals [place] Rate: 80 P: 35 KS: 136 QRS: -2 QRSD: 90 T: 48 QT: 366 QTc: 423 Interpretive Statements SINUS RHYTHM POSSIBLE RIGHT VENTRICULAR CONDUCTION DELAY [RSR (QR) IN V1/V2] VOLTAGE CRITERIA FOR LVH [MEETS CRITERIA IN ONE OF: R(aVL), S(V1), R(V5), R(V5/V6)+S(V1)] ABNORMAL ECG COMPARED TO ECG 01/25/2022 23:50:22 LEFT VENTRICULAR HYPERTROPHY NOW PRESENT Electronically Signed On 07-30-2022 13:39:10 CDT by Michael Alfred M.D.
[2022-07-29 15:06] VITALS: BP 163/90; PULSE 86; RESP 16; TEMP 36.8; O2SAT 100
[2022-07-29 15:35] LABS: Basophils Percent Auto 0.1 % (0.2-1.2); Eosinophils Absolute Auto 0.1 K/mm3 (0-0.3); Eosinophils Percent Auto 1.4 % (0-4.4); Hematocrit 40.2 % (37.0-47.0); Hemoglobin 13.1 g/dL (12.0-15.0); Immature Granulocyte Absolute 0.02 K/mm3 (0.00-0.031); Immature Granulocyte Percent A 0.3 % (0-0.5); Lymphocytes Absolute Auto 2.18 K/mm3 (0.9-3.2); Lymphocytes Percent Auto 27.7 % (18.3-44.2); Mean Corpuscular HGB Conc 32.6 g/dl (32-36); Mean Corpuscular Hemoglobin 26.4 pg (26-34); Mean Corpuscular Volume 80.9 fl (80-100); Mean Platelet Volume 10.1 fl (7.4-10.4); Monocytes Absolute Auto 0.4 K/mm3 (0.1-0.6); Neutrophils Absolute Auto 5.2 K/mm3 (1.3-6.7); Neutrophils Percent Auto 65.5 % (45.5-73.1); Platelet Count Result 367 k/mm3 (150-375); Red Blood Count 4.97 M/mm3 (4.2-5.4); Red Cell Distribution Width 14.4 % (11.5-14.5); White Blood Count 7.9 K/mm3 (4.5-10.0)
[2022-07-29 15:43] LABS: Prothrombin Time 13.2 Seconds (11.1-14.7)
[2022-07-29 15:44] LABS: Partial Thromboplastin Time 28.5 SECONDS (22.3-36.8)
[2022-07-29 15:45] LABS: Alanine Aminotransferase 21 U/L (6-35); Albumin Level 4.3 g/dL (3.5-5.1); Alkaline Phosphatase 140 U/L (38-126); Anion Gap 7 mmol/L (8-16); Aspartate Amino Transferase 21 U/L (14-36); Bilirubin,Total 0.7 mg/dL (0.2-1.3); Blood Urea Nitrogen 9 mg/dL (7-17); Calcium 8.9 mg/dL (8.4-10.2); Carbon Dioxide 26 mmol/L (22-30); Chloride 103 mmol/L (98-107); Estimated CRCL calculation 103 ml/min; Estimated Glomerular Filt Rate > 60; Glucose 100 mg/dL (65-110); Lipase 107 U/L (23-300); Potassium 3.5 mmol/L (3.4-5.0); Sodium 136 mmol/L (137-145)
[2022-07-29 15:56] LABS: Troponin I < 0.012 ng/mL (0.000-0.034)
--- NOTE | 2022-07-29 18:20 | ECG_ITS ---
Measurements Intervals [place] Rate: 81 P: 46 RI: 155 QRS: -4 QRSD: 94 T: 44 QT: 374 QTc: 436 Interpretive Statements SINUS RHYTHM POSSIBLE RIGHT VENTRICULAR CONDUCTION DELAY [RSR (QR) IN V1/V2] VOLTAGE CRITERIA FOR LVH [MEETS CRITERIA IN ONE OF: R(aVL), S(V1), R(V5), R(V5/V6)+S(V1)] ABNORMAL ECG COMPARED TO ECG 07/29/2022 15:15:04 NO SIGNIFICANT CHANGES Electronically Signed On 07-30-2022 13:46:03 CDT by Michael Alfred M.D.
[2022-07-29 19:34] LABS: Troponin I < 0.012 ng/mL (0.000-0.034)
[2022-07-29 19:50] VITALS: BP 150/90; PULSE 78; O2SAT 100
--- NOTE | 2022-07-29 20:30 | ED.CHESTPAIN ---
HPI - Chest Pain General Chief Complaint: Chest Pain Stated Complaint: Chest pain Time Seen by Provider: 07/29/22 20:11 History of Present Illness HPI narrative: Pt presents with complaints of intermittent cjest pain and palpitations for weeks. Pt says she has been seen by cardiology for these in past and they opted not to treat. Pt has had more frequent episodes recently including today that lasted 3 minutes or so and resolved. Pt has had echo and halter and cardiac work ups in past as well. Pt also has anxiety and fibromyalgia. Pt is not having pain now. Related Data Home Medications Medication Instructions Recorded Confirmed citalopram 40 mg tablet (Celexa) 40 mg PO DAILY 09/27/19 03/15/21 lubiprostone 8 mcg capsule 8 mcg PO DAILY 09/27/19 03/15/21 (Amitiza) metoclopramide HCl 10 mg tablet 10 mg PO Q6H PRN Nausea 03/15/21 03/15/21 (Reglan) pregabalin 150 mg capsule (Lyrica) 150 mg PO DAILY 03/15/21 03/15/21 Allergies Allergy/AdvReac Type Severity Reaction Status Date / Time amoxicillin AdvReac Nausea and Verified 07/29/22 14:53 Vomiting doxycycline AdvReac Anxiety Verified 07/29/22 14:53 Sulfa (Sulfonamide AdvReac Nausea Verified 07/29/22 14:53 Antibiotics) Review of Systems Review of Systems: All systems reviewed & are unremarkable except as noted in HPI and below PMFSH Past Medical History Medical History (Updated 07/29/22 @ 20:37 by Christiano Calloway III DO) Fibromyalgia History of kidney stones Interstitial cystitis Irritable bowel syndrome Migraines Surgical History Surgical History (System 03/14/22 @ 10:58 by Marco A Hernandez) H/O: hysterectomy History of ventral hernia repair Hx of cholecystectomy Social History Social History (System 03/14/22 @ 10:58 by Marco A Hernandez) Smoking status: Never smoker Exam Const: General: healthy appearing and no acute distress Nutritional Appearance: well nourished Orientation/consciousness: patient oriented x3 Eyes: Conjunctivae: conjunctivae normal Neck: Neck: normal visual inspection Chest: Chest palpation & inspection: normal inspection of the chest Resp: Effort & Inspection: normal respiratory effort Auscultation: clear to auscultation bilaterally Cardio: Rate: regular rate Rhythm: regular rhythm GI: Auscultation: normal bowel sounds Skin: General skin exam: normal color Neuro: General: patient oriented x3, moves all extremities, no meningeal signs, no focal motor deficits and CN's II-XI intact bilaterally Speech: normal speech Extrem: General: normal to inspection and no clubbing, cyanosis or edema Psych: Mental Status: mental status grossly normal Affect: normal affect Attitude: cooperative Course Vital Signs Vital signs: Vital Signs Temperature 98.3 F 07/29/22 15:06 Pulse Rate 86 07/29/22 15:06 Respiratory Rate 16 07/29/22 15:06 Blood Pressure 163/90 H 07/29/22 15:06 Pulse Oximetry 100 07/29/22 15:06 Oxygen Delivery Room Air 07/29/22 15:06 Temperature 98.3 F 07/29/22 15:06 Pulse Rate 78 07/29/22 19:50 Respiratory Rate 16 07/29/22 15:06 Blood Pressure 150/90 H 07/29/22 19:50 Pulse Oximetry 100 07/29/22 19:50 Oxygen Delivery Room Air 07/29/22 20:11 MDM - Chest Pain MDM Narrative Medical decision making narrative: ekg's nsr without st or t wave changes. pt has two negative troponins and nrmal labs and work up. pt has history of this and has seen cardiology. 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 Pt comfortable with this plan. Medical Records Data Attestation: I reviewed the patient's medical records. Medical records narrative: echo normal Lab Data Attestation: I reviewed the patient's lab results. 07/29/22 15:24 07/29/22 15:24 Labs: Lab Results 07/29/22 07/29/22 07/29/22 Range/Units 15:23 15:24 15:24 WBC
[2022-07-29 20:33] LABS: Appearance Urine Cloudy (Clear); Bacteria Urine 1+ /hpf; Bilirubin Urine Negative (Negative); Blood Urine Negative (Negative); Color Urine Yellow (Yellow); Glucose Urine UA Negative (Negative); Ketones Urine Negative (Negative); Leukocyte Esterase Ur 2+ LEU/UL (Negative); Nitrate Urine Negative (Negative); Non Pathogenic Casts 0-2; Protein Urine Negative (Negative); RBC Urine 0-2 /hpf (0-2); Specific Grav Ur 1.013 (1.001-1.035); Squamous Epithelial Cell Urine Few /hpf (Few)
[2022-07-29 20:45] LABS: Add Urine Microscopic? YES
== END 2022-07-29 21:36 | disposition home or self-care (01) ==
PROVIDERS: Emergency Medicine; General Practice; Emergency Provider Emergency Medicine; PCP Family Medicine
DX: R07.89 Other chest pain (principal); R00.2 Palpitations; M79.7 Fibromyalgia; N30.10 Interstitial cystitis (chronic) without hematuria; K58.9 Irritable bowel syndrome, unspecified; Z90.710 Acquired absence of both cervix and uterus; Z87.442 Personal history of urinary calculi; R94.31 Abnormal electrocardiogram [ECG] [EKG]
CPT/HCPCS: 36415; 71046; 80053; 81001; 83690; 84484; 85025; 85610; 85730; 87086; 87088; 93005; 99284

== ENCOUNTER 2022-08-26 15:01 | Outpatient (CLI) | payer BC, SELFPAY ==
--- NOTE | ~2022-08-26 | XR_ITS ---
EXAM: XR elbow LT min 3V DATE: 08/26/2022 16:41 HISTORY: PAIN IN LEFT ELBOW . COMPARISON: None available. FINDINGS: Normal mineralization. No fracture or dislocation. No lytic or blastic lesion. Mild degene rative changes in the elbow joint. No erosion or periosteal change. Soft tissues within normal limits . IMPRESSION: Mild elbow osteoarthritis. Reviewed, dictated and finalized at location K. IMPRESSION: Mild elbow osteoarthritis.
== END 2022-08-26 15:02 | disposition home or self-care (01) ==
PROVIDERS: PCP Family Medicine; Visit Provider Family Medicine
DX: M19.022 Primary osteoarthritis, left elbow (principal); M25.522 Pain in left elbow
CPT/HCPCS: 73080

== ENCOUNTER 2023-03-03 09:41 | Outpatient (CLI) | payer BC, SELFPAY ==
--- NOTE | ~2023-03-03 | US_ITS ---
EXAMINATION: US venous doppler [facility] DATE: 03/03/2023 13:39 INDICATION: Bilateral lower limb swelling TECHNIQUE: Zimmerman scale images without and with compression and Doppler images of the bilateral lower e xtremity veins were obtained. COMPARISON: None FINDINGS: The right common femoral vein, profunda femoral vein, femoral vein, popliteal vein, peroneal trunk, p osterior tibial veins, and greater saphenous vein are patent. The left common femoral vein, profunda femoral vein, femoral vein, popliteal vein, peroneal trunk, po sterior tibial veins, and greater saphenous vein are patent. IMPRESSION: 1. Patent bilateral lower extremity veins. No evidence of deep venous thrombosis. Reviewed, dictated and finalized at location L. L SAWYER IMPRESSION: 1. Patent bilateral lower extremity veins. No evidence of deep venous thrombosi s.
--- NOTE | ~2023-03-03 | XR_ITS ---
Left Knee Technique: AP, lateral, and sunrise views were obtained. Clinical History: Pain Findings: No fracture or dislocation is seen. Osseous alignment is anatomic. Joint spaces are preserv ed without degenerative or erosive change. Soft tissues are unremarkable. No joint effusion is seen. Impression: Unremarkable left knee radiographs. Reviewed, dictated and finalized at location . CTOR PAYER Impression: Unremarkable left knee radiographs.
[2023-03-03 09:57] LABS: Basophils Absolute Auto 0.01 K/mm3 (0.00-0.10); Basophils Percent Auto 0.2 % (0.0-1.0); Eosinophils Absolute Auto 0.15 K/mm3 (0.02-0.50); Eosinophils Percent Auto 2.3 % (1.0-6.0); Hematocrit 39.6 % (35.0-49.0); Hemoglobin 12.7 g/dL (12.0-15.0); Immature Granulocyte Absolute 0.03 K/mm3 (0.00-0.00); Immature Granulocyte Percent A 0.5 % (0.0-0.0); Lymphocytes Absolute Auto 2.06 K/mm3 (1.10-4.50); Lymphocytes Percent Auto 31.2 % (18.0-42.0); Mean Corpuscular HGB Conc 32.1 g/dL (32.0-36.0); Mean Corpuscular Hemoglobin 26.7 pg (27.0-31.0); Mean Corpuscular Volume 83.4 fL (78.0-102.0); Mean Platelet Volume 10.1 fl (9.2-11.8); Monocytes Absolute Auto 0.35 K/mm3 (0.10-0.90); Monocytes Percent Auto 5.3 % (2.0-11.0); Neutrophils Percent Auto 60.5 % (50.0-70.0); Platelet Count Result 400 K/mm3 (150-420); Red Blood Count 4.75 M/mm3 (4.20-5.40); Red Cell Distribution Width 13.4 % (11.6-14.4); White Blood Count 6.6 K/mm3 (4.8-10.8)
[2023-03-03 10:12] LABS: Alanine Aminotransferase 22 U/L (14-59); Albumin Level 3.2 g/dL (3.4-5.0); Alkaline Phosphatase 125 U/L (46-116); Anion Gap 7 mmol/L (8-16); Aspartate Amino Transferase < 10 U/L (15-37); Bilirubin,Total 0.3 mg/dL (0.00-1.00); Blood Urea Nitrogen 7 mg/dL (7-18); Calcium 9.3 mg/dL (8.5-10.1); Carbon Dioxide 29 mmol/L (21-32); Chloride 106 mmol/L (98-108); Estimated Glomerular Filt Rate > 60; Glucose 102 mg/dL (70-99); Osmolality Calculated 292 mOsm/kg (285-295); Potassium 4.3 mmol/L (3.5-5.1); Sodium 142 mmol/L (136-145); Total Protein 7.4 g/dL (6.4-8.2)
[2023-03-03 10:35] LABS: D Dimer 0.84 mg/L (0.19-0.50)
[2023-03-06 12:03] LABS: Vitamin D 25 Hydroxy 31 ng/mL (30-100)
== END 2023-03-03 09:42 | disposition home or self-care (01) ==
PROVIDERS: PCP Family Medicine; Visit Provider Family Medicine
DX: M79.605 Pain in left leg (principal); E55.9 Vitamin D deficiency, unspecified; M25.562 Pain in left knee
CPT/HCPCS: 36415; 73562; 80053; 82306; 85025; 85380; 93970

== ENCOUNTER 2023-09-28 15:15 | Outpatient (CLI) | payer BC, SELFPAY ==
--- NOTE | ~2023-09-28 | XR_ITS ---
EXAM: XR knee RT 3V DATE: 09/28/2023 15:35 HISTORY: patella pain, knee popping posteriorly, long hike/crossfit . COMPARISON: None available. FINDINGS: Normal mineralization. No fracture or dislocation. No lytic or blastic lesion. Mild medial joint space narrowing and mild tricompartmental osteophytosis. Mild quadriceps enthesopathy. No eros ion or periosteal change. Soft tissues within normal limits. IMPRESSION: Mild tricompartmental right knee osteoarthritis. Reviewed, dictated and finalized at location K.
== END 2023-09-28 15:16 | disposition home or self-care (01) ==
LOC: CHSIMG 15:18
PROVIDERS: PCP Family Medicine; Visit Provider Family Medicine
DX: M25.561 Pain in right knee (principal); M17.11 Unilateral primary osteoarthritis, right knee
CPT/HCPCS: 73562

== ENCOUNTER 2023-12-30 18:55 | Emergency (ER) | payer BC, SELFPAY ==
--- NOTE | 2023-12-30 18:59 | ED.BACK ---
HPI - Back Pain/Injury General Chief Complaint: Extremity Problem,Nontraumatic Stated Complaint: L CHEST/SHOULDER/BACK PAIN Time Seen by Provider: 12/30/23 19:01 Source: patient Mode of arrival: ambulatory Limitations: no limitations History of Present Illness HPI Narrative: Esequiel is a 43-year-old female patient presenting to the clinic today with complaints of left-sided chest, shoulder, and back pain that started early this morning when she was laying down in bed. She reports no shortness of breath. States that she has history of fibromyalgia. Feels stiff and is having difficulty moving due to the pain. Has pain over the musculature of the left chest wall, left clavicle/shoulder, and the left posterior trapezius. Pain is worse with movement Related Data Home Medications Medication Instructions Recorded Confirmed citalopram 40 mg tablet (Celexa) 40 mg PO DAILY 09/27/19 03/15/21 lubiprostone 8 mcg capsule 8 mcg PO DAILY 09/27/19 03/15/21 (Amitiza) metoclopramide HCl 10 mg tablet 10 mg PO Q6H PRN Nausea 03/15/21 03/15/21 (Reglan) pregabalin 150 mg capsule (Lyrica) 150 mg PO DAILY 03/15/21 03/15/21 Allergies Allergy/AdvReac Type Severity Reaction Status Date / Time amoxicillin AdvReac Nausea and Verified 07/29/22 14:53 Vomiting doxycycline AdvReac Anxiety Verified 07/29/22 14:53 Sulfa (Sulfonamide AdvReac Nausea Verified 07/29/22 14:53 Antibiotics) Review of Systems Review of Systems: Pertinent positives per HPI. Patient denies any fever, chills, rash, headache, visual changes, dizziness, cough, runny nose, sore throat, shortness of breath, palpitations, nausea, vomiting, diarrhea, constipation, abdominal pain, or any urinary issues. REPLACED BY [facility] Past Medical History Medical History Fibromyalgia History of kidney stones Interstitial cystitis Irritable bowel syndrome Migraines Surgical History Surgical History H/O: hysterectomy History of ventral hernia repair Hx of cholecystectomy Social History Social History (Reviewed 12/30/23 @ 19:02 by JENSEN Linn Smoking status: Never smoker Comments At the time of my signature, I reviewed and agree with the nursing past medical, surgical, social, and family history. There is no relevant family history pertinent to the patient complaint. Exam Narrative: General: Well-developed, well nourished, in no apparent distress Head: Normocephalic, atraumatic. Cardio: Regular rate and rhythm, s1 and s2 normal, no murmur appreciated. Resp: Clear to auscultation bilaterally, no rhonchi, rales, wheezing or rubs. Extremities: No deformity, no edema, no cyanosis, capillary refill less than 2 seconds, peripheral pulses palpable and strong. Integumentary: [place], warm, and dry, intact without lesion, no rashes. Musculoskeletal: No deformity,tender to light palpation over the left chest wall, left clavicle, and left trapezius musculature grossly normal range of motion, muscle strength strong and equal, peripheral pulse strong, no edema, no cyanosis, normal gait and station Course Course Emergency Course: Portions of this record may have been created with voice recognition software. Level of Care: Express Care Visit Vital Signs Vital signs: Vital Signs Temperature 36.5 C 12/30/23 19:03 Pulse Rate 66 12/30/23 19:03 Respiratory Rate 16 12/30/23 19:03 Blood Pressure 118/74 12/30/23 19:03 Pulse Oximetry 97 12/30/23 19:03 Temperature 36.5 C 12/30/23 19:03 Pulse Rate 66 12/30/23 19:03 Respiratory Rate 16 12/30/23 19:03 Blood Pressure 118/74 12/30/23 19:03 Pulse Oximetry 97 12/30/23 19:03 Vital signs reviewed MDM - Back Pain/Injury MDM Narrative Medical decision making narrative: At the time of visit patient is resting comfortably on the exam table. Patient appears to be nonto
[2023-12-30 19:03] VITALS: BP 118/74; PULSE 66; RESP 16; TEMP 36.5; O2SAT 97
--- NOTE | 2023-12-30 19:19 | ECG_ITS ---
Test Date: 2023-12-30 19:28:06 Measurements Intervals [place] Rate: 64 P: 38 LA: 162 QRS: 2 QRSD: 100 T: 49 QT: 398 QTc: 412 Interpretive Statements SINUS RHYTHM INCOMPLETE RIGHT BUNDLE BRANCH BLOCK VOLTAGE CRITERIA FOR LVH BASELINE ARTIFACT- I, II, III, AVR, AVF, V1 BORDERLINE ECG No previous ECG available for comparison Electronically Signed On 12-30-2023 20:00:48 CDT by Clem Wray D.O.
== END 2023-12-30 19:36 | disposition home or self-care (01) ==
PROVIDERS: Emergency Provider Nurse Practitioner Family; PCP Family Medicine
DX: M79.7 Fibromyalgia (principal)
CPT/HCPCS: 93005; 99213; G0463

== ENCOUNTER 2024-01-05 09:57 | Outpatient (CLI) | payer BC, SELFPAY ==
--- NOTE | ~2024-01-05 | XR_ITS ---
Cervical Spine: AP, lateral, open-mouth views Clinical History: Pain Findings: There is straightening of the normal cervical lordosis. The vertebral bodies and posterior elements appear intact. The intervertebral disc spaces are well maintained. There is mild facet art hropathy. Pre-vertebral soft tissues are unremarkable. Impression: Minimal degenerative change, as above. Reviewed, dictated and finalized at location . Impression: Minimal degenerative change, as above.
--- NOTE | ~2024-01-05 | XR_ITS ---
Left Shoulder Technique: AP and scapular Y views were obtained. Clinical History: Pain Findings: No fracture or dislocation is seen. Osseous alignment is anatomic. The glenohumeral and acr omioclavicular joint spaces are preserved. Soft tissues are unremarkable. Impression: Unremarkable left shoulder radiographs. Reviewed, dictated and finalized at [facility]. Impression: Unremarkable left shoulder radiographs.
--- NOTE | ~2024-01-05 | XR_ITS ---
Left Humerus Technique: AP and lateral views were obtained. Clinical History: Pain Findings: No fracture or dislocation is seen. Osseous alignment is anatomic. Visualized joint spaces are grossly preserved. Soft tissues are unremarkable. Impression: Unremarkable examination. No fracture or dislocation. Reviewed, dictated and finalized at location . Impression: Unremarkable examination. No fracture or dislocation.
== END 2024-01-05 09:58 | disposition home or self-care (01) ==
LOC: CHSIMG 11:25
PROVIDERS: PCP Family Medicine; Visit Provider Family Medicine
DX: M25.512 Pain in left shoulder (principal); M54.12 Radiculopathy, cervical region
CPT/HCPCS: 72040; 73030; 73060

== ENCOUNTER 2024-03-07 09:30 | Outpatient (CLI) | payer BC, SELFPAY ==
--- NOTE | ~2024-03-07 | CT_ITS ---
EXAMINATION: CT abdomen pelvis wo/w con DATE: 03/07/2024 10:29 INDICATION: Liver mass. TECHNIQUE: Computed tomography (CT) of the abdomen and pelvis was performed without and with 100 mL O mnipaque 350 intravenous contrast. Automated exposure control and iterative reconstruction technique were employed. The dose-length product was 3293.14 mGy-cm. COMPARISON: CT abdomen and pelvis 01/25/2022, 01/07/2013 FINDINGS: The visualized portions of the lung bases demonstrate mild atelectasis in right lower lobe. No pleural effusion. The heart size is normal. No pericardial effusion. There is diffuse hepatic tiffanie atosis. There is an 11 mm hyperenhancing mass in left hepatic lobe. There is an 11 mm hyperenhancing mass in right hepatic lobe. No washout. There are changes of cholecystectomy. The spleen, pancreas, a drenal glands, and right kidney are normal. There is a 9 mm cyst in the left kidney. There is diverti culosis of the colon without evidence of diverticulitis. There are no dilated loops of bowel. There a re changes of appendectomy. There are changes of ventral hernia repair. There are no pathologically e nlarged lymph nodes. There is no free intraperitoneal fluid. There is mild thoracic spondylosis. IMPRESSION: 1. Two 11 mm hyperenhancing liver masses, new from 01/07/2013. In the absence of known malignancy or h epatitis, these findings are likely hemangiomas or focal nodular hyperplasia. 2. Diffuse hepatic steatosis. Reviewed, dictated and finalized at location A. IT ASSESSMENT ANALYST IMPRESSION: 1. Two 11 mm hyperenhancing liver masses, new from 01/07/2013. In the absence of known malignancy or hepatitis, these findings are likely hemangiomas or focal nodular hyperplasia. 2. Diffuse hepatic steatosis.
[2024-03-07 09:56] LABS: Estimated Glomerular Filt Rate > 60
== END 2024-03-07 09:31 | disposition home or self-care (01) ==
LOC: CHSIMG 09:32
PROVIDERS: PCP Family Medicine; Visit Provider Family Medicine
DX: R11.0 Nausea (principal); K76.0 Fatty (change of) liver, not elsewhere classified; R16.0 Hepatomegaly, not elsewhere classified
CPT/HCPCS: 74178; Q9967

== ENCOUNTER 2024-04-11 11:05 | Outpatient (CLI) | payer BC, SELFPAY ==
[2024-04-13 12:38] LABS: Alpha Fetoprotein Tumor Marker 2.6 ng/mL
== END 2024-04-11 11:06 | disposition home or self-care (01) ==
PROVIDERS: PCP Family Medicine
DX: R16.0 Hepatomegaly, not elsewhere classified (principal)
CPT/HCPCS: 36415; 82105

== ENCOUNTER 2024-08-15 15:09 | Outpatient (CLI) | payer BC, SELFPAY ==
--- NOTE | ~2024-08-15 | XR_ITS ---
Supine and upright views of the abdomen Clinical history: Right flank pain, magnesium deficiency Findings: Bowel gas pattern is nonspecific. No evidence for obstruction or free air. No abnormal mass lesion or calcification is seen. Evidence of prior herniorrhaphy at the lower abdomen. Osseous struc tures are intact. Impression: No acute abnormality evident. Evidence of prior herniorrhaphy. Reviewed, dictated and finalized at location . Impression: No acute abnormality evident. Evidence of prior herniorrhaphy.
[2024-08-15 15:30] LABS: Basophils Absolute Auto 0.01 K/mm3 (0.00-0.10); Basophils Percent Auto 0.1 % (0.0-1.0); Eosinophils Absolute Auto 0.11 K/mm3 (0.02-0.50); Eosinophils Percent Auto 1.3 % (1.0-6.0); Hematocrit 39.5 % (35.0-49.0); Hemoglobin 12.3 g/dL (12.0-15.0); Immature Granulocyte Absolute 0.02 K/mm3 (0.00-0.00); Immature Granulocyte Percent A 0.2 % (0.0-0.0); Lymphocytes Absolute Auto 2.18 K/mm3 (1.10-4.50); Lymphocytes Percent Auto 24.9 % (18.0-42.0); Mean Corpuscular HGB Conc 31.1 g/dL (32-36); Mean Corpuscular Hemoglobin 25.6 pg (27.0-31.0); Mean Corpuscular Volume 82.1 fL (78.0-102.0); Mean Platelet Volume 10.5 fl (9.2-11.8); Monocytes Absolute Auto 0.42 K/mm3 (0.10-0.90); Monocytes Percent Auto 4.8 % (2.0-11.0); Neutrophils Percent Auto 68.7 % (50.0-70.0); Platelet Count Result 361 K/mm3 (150-420); Red Blood Count 4.81 M/mm3 (4.20-5.40); Red Cell Distribution Width 13.4 % (11.6-14.4); White Blood Count 8.7 K/mm3 (4.8-10.8)
[2024-08-15 16:20] LABS: Alanine Aminotransferase 34 U/L (14-59); Albumin Level 3.5 g/dL (3.4-5.0); Alkaline Phosphatase 183 U/L (46-116); Amylase 36 U/L (25-115); Anion Gap 9 mmol/L (4-12); Aspartate Amino Transferase 14 U/L (15-37); Bilirubin,Total 0.4 mg/dL (0.00-1.00); Blood Urea Nitrogen 23 mg/dL (7-18); Calcium 9.5 mg/dL (8.5-10.1); Carbon Dioxide 29 mmol/L (21-32); Chloride 106 mmol/L (98-108); Estimated Glomerular Filt Rate > 60; Glucose 88 mg/dL (70-99); Lipase 35 U/L (16-77); Magnesium 2.1 mg/dL (1.8-2.4); Osmolality Calculated 300 mOsm/kg (285-295); Potassium 4.8 mmol/L (3.5-5.1); Sodium 144 mmol/L (136-145); Total Protein 7.5 g/dL (6.4-8.2)
--- OUTSIDE RECORDS SUMMARY | 2024-08-15 17:10 | XMS_ITS | Clinical Summary ---
Author Organization [facility] Address [facility] [place] [address] Care Team Providers Care Asphalt Heater Tender Name Role Phone Jean Carlos Covarrubias MD Primary Care Provider [phone] Allergies Active Allergy Reactions Criticality Noted Date Comments Amoxicillin GI Upset 10/24/2020 Amoxicillin-Pot Clavulanate GI Upset 10/25/19 21 Diphenhydramine Unknown 12/05/2023 Pt states my son is allergic to this so I always say that I am too Ciprofloxacin Unknown 10/24/2020 Mother has allergy to this (mental) Sulfa Antibiotics Unknown 10/24/2020 Medications Cholecalciferol 50 MCG (1999 UT) Cap Take 2,000 Units by mouth. Active Bacillus Coagulans-Inulin (PROBIOTIC) 1-250 BILLION-MG Cap Active Norethindrone, Contraceptive, 0.35 MG tablet Take 1 tablet by mouth daily. Active citalopram 40 MG tablet Take 40 mg by mouth daily. Active lactulose 20 g packet Take 20 g by mouth 3 (three) times daily. Active Family History Medical History Relation Comments Cancer Maternal Grandmother Emphysema Maternal Grandmother Depression Mother Heart Disease Mother Migraines Mother Migraines Sister Thyroid Disease Sister Relation Status Comments Maternal Grandmother Mother Sister Social History Tobacco Use Types Packs/Day Years Used Date Smoking Tobacco: Never Assessed Comments No Sex and Gender Information Value Date Recorded Sex Assigned at Not on file Legal Sex Female 7:35 PM CDT Gender Identity Not on file Sexual Orientation Not on file Last Filed Vital Signs Vital Sign Reading Time Taken Comments Blood Pressure 147/75 12/05/2023 9:16 PM CDT Pulse 73 12/05/2023 9:16 PM CDT Temperature 37 C (98.6 F) 12/05/2023 9:16 PM CDT Respiratory Rate 17 12/05/2023 9:16 PM CDT Oxygen Saturation 99% 12/05/2023 9:16 PM CDT Inhaled Oxygen Concentration - - Weight 106.1 kg (234 lb) 12/05/2023 9:16 PM CDT Height 158.1 cm (5' 2.25 ) 12/05/2023 9:16 PM CD T Body Mass Index 42.46 12/05/2023 9:16 PM CDT Plan of Treatment Health Maintenance Due Date Last Done Comments Annual Physical 1985 DTaP, Tdap and Td Vaccines ( 1 - Tdap) 2001 Hepatitis B Vaccines (1 of 3 - 19+ 3-dose series) 2001 Mammogram Screening 2022 COVID-19 Vaccine ( - 2023-2 5 season) 2023 12/17/2020, 11/19/2020 Hepatitis C Completed 10/16/2022 HPV Vaccines Aged Out No longer eligi ble based on patient's age to complete this topic Meningococcal B Vaccine Aged Out No l onger eligible based on patient's age to complete this topic Meningococcal Vaccine Aged Out No oj pau eligible based on patient's age to complete this topic Pneumococcal Vaccine: Pediatrics (0 to 5 Years) and At-Risk Patients (6 to 49 Years) Aged Out No longer eligible b ased on patient's age to complete this topic RSV Immunizations Under 20 Months Aged Out No longer eligible b ased on patient's age to complete this topic Insurance [facility] GT[facility] BL[facility] Care Teams Asphalt Heater Tender Relationship Specialty Start Date End Date Jean Carlos Covarrubias MD [address] [place], [place] [id number] PCP - General FAMILY PRACTICE 10/24/20
--- OUTSIDE RECORDS SUMMARY | 2024-08-15 17:10 | XMS_ITS | Encounter Summary ---
Author Organization [facility] Address [address] [place], [place] [address] [address] Care Team Providers Care Chemist Water Purification Name Role Phone Jean Carlos Covarrubias MD Primary Care Provider [phone] Jean Carlos Covarrubias MD Primary Care Provider [phone] Reason for Visit * Reason Onset Date Comments Question 02/04/2018 Encounter Details Date Type Department Care Team (Late st Contact Info) Description 02/04/2018 Telephone [facility] [address] [place] [address] Felice Torres Jr., MD [address] [facility] [address] [place] [address] Question Social History Tobacco Use Types Packs/Day Years Used Date Smoking Tobacco: Former Cigarettes Q uit: 04/16/2017 Smokeless Tobacco: Never Alcohol Use Standard Drinks/Week Comments No 0 (1 standard drink = 0.6 oz pur e alcohol) Comments No Sex and Gender Information Value Date Recorded Sex Assigned at Not on file Legal Sex Female 2:04 PM CDT Gender Identity Not on file Sexual Orientation Not on file documented as of this encounter Miscellaneous Notes * Telephone Encounter - Kelvin Soto - 02/04/2018 2:31 PM CDT Patient called in originally stating that she received a call from our nurse, someone named tamia informed patient that I didn't see a call documented and we don't have a nurse by that named. Asked did the nurse leave a vm in regards to why she was calling, pt states she did. I ask what was the call in regards to so I can let the returning nurse who will call Know what to address. patient states she left a message but she wanted to speak to the nurse about something else. Pt states she called in to speak to a nurse about a cyst that she is stating is giving her pain. Pt states she was told inthe ER that she has a 4 inch cyst and its very painful. patient wants to know if she can come in. Please advise Cb: [phone] documented in this encounter Plan of Treatment Upcoming Encounters Date Type Department Care Team (Late st Contact Info) Description 08/17/2024 4:45 PM CDT Hospital Encounter [facility] Imaging Services - Ultrasound [address] [place] [address] Hiro Schuler PA [address] [place] [phone] 09/06/2024 3:20 PM CDT Office Visit [facility] - Urology [address] [place] [address] Hiro Schuler PA [address] [place] [phone] 09/08/2024 12:30 PM CDT Office Visit [facility] [address] [place] [phone] Germaine Renteria MD [address] [place] [address] [address] [place] [address] 11/10/2024 11:00 AM CDT Office Visit [facility] [address] [place] [address] documented as of this encounter Visit Diagnoses Not on filedocumented in this encounter Additional Health Concerns Infection Onset Date Last Indicated Resolved Time COVID-19 Under Investigation 06/08/2020 06/08/2020 06/08/2020 4:54 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
--- OUTSIDE RECORDS SUMMARY | 2024-08-15 17:10 | XMS_ITS | Encounter Summary ---
Author Organization [facility] Address [address] [place], [place] [address]J[place]iel [place] [address] Care Team Providers Care Ultrasound Technol Name Role Phone Jean Carlos Covarrubias MD Primary Care Provider [phone] Jean Carlos Covarrubias MD Primary Care Provider [phone] Reason for Visit * Reason Onset Date Comments Returned Call 11/15/2018 Encounter Details Date Type Department Care Team (Late st Contact Info) Description 11/15/2018 Telephone [facility] [address] [place] [address] Felice Torres Jr., MD [address] [facility] [address] [place] [address] Returned Call Social History Tobacco Use Types Packs/Day Years [...] on file documented as of this encounter Functional Status * Is person deaf or have serious hearing difficulty? Answer Date of Assessment Author No 08/28/2018 12:43 PM CDT Pallavi Santos RN * Is person blind or have serious difficulty seeing? Answer Date of Assessment Author No 08/28/2018 12:43 PM CDT Pallavi Santos RN * Does person have serious difficulty walking/climbing stairs? Answer Date of Assessment Author No 08/28/2018 12:43 PM CDT Pallavi Santos RN * Does person have difficulty dressing/bathing? Answer Date of Assessment Author No 08/28/2018 12:43 PM CDT Pallavi Santos RN * Does person have difficulty doing errands alone? Answer Date of Assessment Author No 08/28/2018 12:43 PM CDT Pallavi Santos RN documented as of this encounter Mental Status * Does person have difficulty concentrating/remembering/making decisions? Answer Entry Date Author No 08/28/2018 12:43 PM CDT Pallavi Santos RN documented in this encounter Miscellaneous Notes * Telephone Encounter - Angie Looney - 11/15/2018 3:39 PM CDT Pt called in stating that she is returning a call from [facility]. She would like a call back please. She stated it was regarding her follow up with Domitila. Pt callback# [phone] documented in this encounter Plan of Treatment Upcoming Encounters Date Type Department Care Team (Late st Contact Info) Description 08/17/2024 4:45 PM CDT Hospital Encounter [facility] Health Imaging Services - Ultrasound [address] [place] [address] Hiro Schuler PA [address] [place] [phone] 09/06/2024 3:20 PM CDT Office Visit [facility] [address] [place] [phone] Hiro Schuler PA [address] [place] [address] 09/08/2024 12:30 PM CDT Office Visit [facility] - GI [address] [facility], [place] [phone] Germaine Renteria MD [address] [facility] [address] [place] [address] 11/10/2024 11:00 AM CDT [facility] Visit [facility] - [facility] [address] [facility], [place] [address] documented as of this encounter Visit Diagnoses Not on filedocumented in this encounter Additional Health Concerns Infection Onset Date Last Indicated Resolved Time COVID-19 Under Investigation 06/08/2020 06/08/2020 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
--- OUTSIDE RECORDS SUMMARY | 2024-08-15 17:10 | XMS_ITS | Referral Summary ---
Author Organization [facility] Address [address] [place] [address] Care Team Providers Care Reliability Technicians Name Role Phone Jean Carlos Covarrubias MD Primary Care Provide r Fco Florez MD Unavailable [phone] Encounters Date Type Department Care Team Description 07/25/[address] [address] Coby Short from Last 3 Months Allergies Active Allergy Reactions Criticality Noted Date Comments Amoxicillin Vomiting Low 02/03/2018 Other reaction(s): Vomiting Amoxicillin-Pot Clavulanate Stomach upset,Nausea And Vomiting Low 10/24/2020 Ciprofloxacin Nausea And Vomiting,Unknown,Vom iting Low 10/27/2018 Mother has allergy to this (mental) Doxycycline Unknown 01/05/2020 Patient stated not allergic to this med during prompt care visit 03/23/2021 Per outside records, does not seem to be active allergy Prednisone Unknown 01/05/2020 Anxious, jittery Sulfamethoxazole-Trimeth oprim Itching,Other (See comments) Low 07/16/[address] (PROTONIX) 20 mg EC tablet Take 1 tablet (20 mg total) by mouth 9 Active albuterol HFA (PROVENTIL HFA,VENTOLIN HFA,PROAIR HFA) 90 mcg/actuation inhaler INHALE 2 PUFFS BY MOUTH EVERY 6 HOURS NEEDED 1 Active bacillus coagulans-inulin 1 billion-250 cell-mg capsule Take by mouth Active metoprolol XL (TOPROL-XL) 50 mg extended release tablet Take 1 tablet (50 mg total) by mouth daily Active acetaminophen (TylenoL) 325 mg capsule Take by mouth Active polyethylene glycol 236-22.74-6.74 -5.86 gram solution peg 3350-electro lytes 236 gram-22.74 gram-6.74 gram-5.86 gram solution TAKE 4000 ML BY MOUTH 1 TIME FOR 1 DOSE Active riboflavin, vitamin B2, 400 mg tablet Take 400 mg by mouth daily 4 Active HYDROcodone-acetami nophen (NORCO) 5-325 mg per tablet Take 1 tablet by mouth as needed 3 Active potassium &magnesium aspartate (MAGNESIUM, POTASSIUM ASPARTATE ORAL) Take 2 capsules by mouth daily Active traZODone (DESYREL) 50 mg tablet Take 1 tablet (50 mg total) by mouth as needed 4 Active ZOLMitriptan (ZOMIG) 5 mg tablet Take 1 tablet (5 mg total) by mouth as directed [address] (CYMBALTA) 30 mg capsule Take 1 capsule (30 mg total) by mouth daily 90 capsule 1 4 Active pregabalin (LYRICA) 25 mg capsule TAKE 2 CAPSULES BY MOUTH EVERY MORNING, AND 1 CAPSULE EVERY EVENING 90 capsule 2 4 Active ondansetron ODT (ZOFRAN-ODT) 4 mg disintegrating tablet Dissolve 1 tablet oral every 6 hours as needed for nausea or vomiting. 15 tablet 4 Active Active Problems Problem Noted Date Diagnosed Date Fall 12/15/2023 Assessment & Plan (12/15/2023 2:57 PM CDT): Recent fall x2. In each described instance it seems that there were factors that contributed to/caused the falls. She is concerned about multiple sclerosis, discussed that based upon her description would have lower suspicion. However, she has follow up with her neurologist next week and plans to discuss further with them. 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 Recommend trial of sleeping in wrist splints for 6-8 weeks. She will call if she fails to improve and will consider ncs/emg. Polyarthralgia 08/13/2023 Assessment & Plan (08/13/2023 12:18 PM CDT): Reassured no abnormality palpated on exam of the R 4th MCP today. She remains concerned that there is a structural problem, will obtain XR and can also obtain film of her thoracic spine. 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 Assessment & Plan (01/20/2022 4:32 PM CDT): Will obtain xrays. She is soon to start PT which would be the likely recommendation, await xray findings. Dysfunction of both eustachian tubes 09/26/2021 Irritable bowel syndrome with constipation 07/29 Assessment & Plan (11/12/2022 11:59 AM CDT): Continue MiraLax and suppositories prn. Continue follow up with GI as planned. Assessment & Plan (07/29/2021 11:05 AM CDT): Currently feels well managed with MiraLax and enemas. Continue follow up with GI as planned. Chronic serous otitis media 07/05/2021 Fibromyalgia 01/14/2021 Overview (01/28/2021): Labs 01/14/2021 AVISE negative CRP 32 and ESR 38 CBC and CMP unremarkable Assessment & Plan (12/15/2023 2:59 PM CDT): Overall she continues to note improvement with her current regimen and has less ttp today. Will continue Lyrica 50 mg qAM with 25 mg qPM prn and Cymbalta 30 mg qPM. Continue routine exercise. Plan for follow up in 4-6 months or sooner as needed. Assessment & Plan (08/13/2023 12:20 PM CDT): Recommend that she try putting an alarm in her phone to help her to remember to dose her Lyrica. Advised that she can take Lyrica 50 mg in the morning and 25 mg qPM prn. Will also continue Cymbalta at 30 mg qPM. Continue routine exercise. Plan for follow up in 4 months or sooner as needed. 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 She has jointed a [employer] gym, discussed that while I am quite happy that she is exercising, generally would prefer a lower impact activity. However, as [employer] has her excited about going to the gym/is motivating her, she will continue with this though advised scaling when needed and to be sure to discuss her limitations with the coach builder. Discussed that we could try increasing her Cymbalta dose or adding back the morning dose of Lyrica due to the shorter duration of action; ultimately she decided that she would like to switch to taking her Lyrica 50 mg in the morning and continue Cymbalta at 30 mg qPM. She will call with update. Plan for follow up in 2 months or sooner as needed. Assessment & Plan (11/12/2022 11:58 AM CDT): Overall feels improved/stable. Will plan to continue Cymbalta at 30 mg daily and Lyrica 50 mg qPM with 25 mg qAM prn. Encourage routine exercise. Plan for follow up in 6 months or sooner as needed. Assessment & Plan (06/30/2022 12:32 PM BEFORE SCHOOL BABYSITTER): Widespread pain improved with the addition of Cymbalta. Will plan to continue Cymbalta at 30 mg daily for now and monitor AE; in the future if AE persist then she would like to try decreasing the dose to 20 mg daily. Continue Lyrica 50 mg qPM. Encourage routine exercise. Plan for follow up in 3-4 months or sooner as needed. Assessment & Plan (05/19/2022 3:32 PM BEFORE SCHOOL BABYSITTER): At this time will discontinue Celexa and instead start Cymbalta 30 mg once daily which could benefit both her mood and her pain. Continue Lyrica 50 mg qPM. Encourage routine exercise. Plan for follow up in 6 weeks or sooner as needed. Assessment & Plan (01/20/2022 4:31 PM CDT): Noting improvement with Lyrica, will continue. She is going to try adding back the morning dose of Lyrica as it was seeming to help. Will continue Lyrica 25 mg qAM with 50 mg qPM and monitor. Encourage routine exercise. Plan for follow up in 3 months or sooner as needed. Assessment & Plan (10/21/2021 9:58 AM CDT): Reviewed fibromyalgia treatment options. At this time will change Lyrica dosing to 50 mg qHS with 25 mg qAM to see if she tolerates it this way. Given her concern regarding potential side effects, lifestyle changes may be the best management for her fibromyalgia. Encourage routine exercise. Plan for follow up in 3 months or sooner as needed. Assessment & Plan (07/29/2021 11:04 AM CDT): Reviewed fibromyalgia treatment options. At this time will change Lyrica dosing to 75 mg bid to see if she tolerates it as a split dose, she will call with update in 3 weeks. She will also discuss discontinuing Celexa with her PCP given lack of obvious benefit; if this is stopped could consider Cymbalta instead which may help both her anxiety and her pain. In the future may again consider nortriptyline. However, given her concern regarding potential side effects, lifestyle changes may be the best management for her fibromyalgia. Discussed the importance of sleep, unfortunately her sleep right now is terrible. May consider sleep study. Encourage routine exercise. Plan for follow up in 3 months or sooner as needed. Assessment & Plan (01/28/2021 9:47 AM CDT): 40yoF with a history of IC, IBS, fibromyalgia and elevated inflammatory markers (ESR 91 and CRP 4.27 July 2020) presents for evaluation. She is concerned about possible overlap of inflammatory arthritis and fibro. She complains of widespread pain with allodynia and is noted to have 17/18 tender points on exam. She also complains of episodes suspicious for underlying autonomic dysfunction, such as abdominal pain described as muscular cramping with diaphoresis; may need neuro evaluation. She also reports fatigue, brain fog, hair thinning, and SOB. She has no synovitis by exam today. Our workup shows improvement in her inflammatory markers with ESR 38 and CRP 32 with otherwise negative serologies. Overall, certainly agree with prior diagnosis of fibromyalgia and there is not evidence at this time to suggest underlying inflammatory arthritis/CTD. She has had some benefit with Lyrica though notes AE as well, will change dosing to 75 mg bid now. Also agree with GI that nortriptyline may be beneficial to both her IBS and fibromyalgia. Can continue Tylenol, consider Tylenol Arthritis for more prolonged effect. Can also consider turmeric as she prefers more 'natural' remedies. Continue PT and yoga. Continue follow up with PCP and GI, can follow up with us as needed or in 6 months to reassess . Assessment & Plan (01/14/2021 3:09 PM CDT): 40yoF with a history of IC, IBS, fibromyalgia and elevated inflammatory markers (ESR 91 and CRP 4.27 July 2020) presents for evaluation. She is concerned about possible overlap of inflammatory arthritis and fibro. She complains of widespread pain with allodynia and is noted to have 17/18 tender points on exam. She also complains of episodes suspicious for underlying autonomic dysfunction, such as abdominal pain described as muscular cramping with diaphoresis; may need neuro evaluation. She also reports fatigue, brain fog, hair thinning, and SOB. She has no synovitis by exam today. Overall, certainly agree with prior diagnosis of fibromyalgia and have a low suspicion for underlying inflammatory arthritis/CTD. Discussed consideration for Lyrica 75 mg qAM with 150 mg qPM. Also agree with GI that nortriptyline may be beneficial to both her IBS and fibromyalgia. Can continue Tylenol, consider Tylenol Arthritis for more prolonged effect. Can also consider turmeric as she prefers more 'natural' remedies. Continue PT and yoga. Check labs today as below. Plan for follow up in 2 weeks to review results. S/P laparoscopic procedure 10/04/2018 DNS (deviated nasal septum) 09/04/2018 Dyschezia 10/07/2017 Influenza A 04/14/2017 Chronic sinusitis 09/06/2015 Immunizations Immunization Administration Dates Next Due PPD TEST 08/26/2022 Social History Tobacco Use Types Packs/Day Years Used Date Smoking Tobacco: Former Cigarettes Q uit: 04/13/2017 Smokeless Tobacco: Never Tobacco Cessation:Counseling Given: Not Answered Alcohol Use Standard Drinks/Week Comments Not Currently 0 (1 standard drink = 0.6 oz pur e alcohol) Personal Safety Answer Date Recorded Have you ever been in or are you currently in a harmful physical or emotional relationship or is someone making you feel afraid or unsafe? 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 Gender Identity Not on file Sexual Orientation Not on file Last Filed Vital Signs Vital Sign Reading Time Taken Comments Blood Pressure 126/66 03/21/2024 1:30 PM BEFORE SCHOOL BABYSITTER Pulse 57 03/21/2024 1:30 PM BEFORE SCHOOL BABYSITTER Temperature 36.8 C (98.2 F) 03/21/2024 5:12 AM BEFORE SCHOOL BABYSITTER Respiratory Rate 12 03/21/2024 1:30 PM BEFORE SCHOOL BABYSITTER Oxygen Saturation 95% 03/21/2024 1:30 PM BEFORE SCHOOL BABYSITTER Inhaled Oxygen Concentration - - Weight 108.4 kg (239 lb) 03/21/2024 3:37 AM BEFORE SCHOOL BABYSITTER Height 157.5 cm (5' 2 ) 03/21/2024 3:37 AM BEFORE SCHOOL BABYSITTER Body Mass Index 43.71 03/21/2024 3:37 AM BEFORE SCHOOL BABYSITTER Plan of Treatment Not on file Insurance [facility] Member Subscriber Plan / Payer ( fective 2021-Present) Name:Esequiel Jones Relation to Subscriber:Self Name:Esequiel Jones Payer ID:[id number] (NAIC) Type: [employer] Address: [id number] [place] [id number] [facility] Care Teams Reliability Technicians Relationship Specialty Start Date End Date Jean Carlos Covarrubias MD [address] [place] [address] PCP - General 08/03/16 Fco Florez MD [address] [place] [address] Consulting Physician Rheumatology 12/19/20
--- OUTSIDE RECORDS SUMMARY | 2024-08-15 17:10 | XMS_ITS | Encounter Summary ---
Author Organization [facility] Address [address] [place] [address] Phone Care Team Providers Care Compressor Engineer Name Role Phone Jean Carlos Covarrubias MD Primary Care Provider Encounter Details Date Type Department Care Team (Late st Contact Info) Description 04/04/2024 [facility]cribe [facility] [address] [place] [address] Jean Carlos Covarrubias MD [address] [place] [address] Nausea and vomiting, unspecified vomiting type (Primary Dx) Social History Tobacco Use Types Packs/Day Years Used Date Smoking Tobacco: Former Cigarettes 0.3 13 1 06/17/2003 - 04/16/2017 Smokeless Tobacco: Never Alcohol Use Standard Drinks/Week Comments No 0 (1 standard drink = 0.6 oz pur e alcohol) Sexually Active Control Partners Comments Not Currently Comments No Sex and Gender Information Value Date Recorded Sex Assigned at Not on file Legal Sex Female 11:08 PM CDT Gender Identity Not on file Sexual Orientation Not on file documented as of this encounter Plan of Treatment Scheduled Orders Name Type Priority Associated Diagnoses Orde r Schedule UR TEST QUAL Lab Routine Nausea and vomiting, unspecified vomiting type Expected: 04/04/2024, Expires: 04/04/2025 documented as of this encounter Visit Diagnoses Diagnosis Nausea and vomiting, unspecified vomiting type- Primary documented in this encounter Care Teams Compressor Engineer Relationship Specialty Start Date End Date Jean Carlos Covarrubias MD [address] [place] [address] PCP - General Pediatrics 11/26/17 documented as of this encounter
--- OUTSIDE RECORDS SUMMARY | 2024-08-15 17:10 | XMS_ITS | Encounter Summary ---
Author Organization [facility] Address [address] [place], [place] [address]iel [place] [address] Care Team Providers Care Business Integration Analyst Name Role Phone Jean Carlos Covarrubias MD Primary Care Provider [phone] Jean Carlos Covarrubias MD Primary Care Provider [phone] Reason for Visit * Reason Onset Date Comments Scheduling 09/13/2020 [facility] Order Information Change 09/13/2020 Encounter Details Date Type Department Care Team (Late st Contact Info) Description 09/13/2020 Telephone [id number] [place] [address] Cee Desai Scheduling ([facility] Echo); Order Information Change Social History Tobacco Use Types Packs/Day Years [...] on file Sexual Orientation Not on file COVID-19 Exposure Response Date Recorded In the last month, have you been in contact with someone who was confirmed or suspected to have Coronavirus / COVID-19? No / Unsure 08/24/2020 1:55 PM CDT documented as of this encounter Functional Status [...] encounter Miscellaneous Notes * Telephone Encounter - Cee Desai - 09/13/2020 4:40 PM CDT Re: PROC ECHO EXERCISE STRESS [[id number]] Please change this order to [id number] To be compatible with [facility] Scheduling... Also place Covid Test, in case patient needs it.. This is required prior to Echo.. Thanks! documented in this encounter Plan of Treatment Upcoming Encounters Date Type Department Care Team (Late st Contact Info) Description 08/17/2024 4:45 PM CDT Hospital Encounter [facility] Health Imaging Services - Ultrasound [address] [place] [address] Hiro Schuler PA [address] [place] [phone] 09/06/2024 3:20 PM CDT Office Visit [facility] - Urology [address] [place] [address] Hiro Schuler PA [address] [place] [phone] 09/08/2024 12:30 PM CDT Office Visit [facility] - GI [address] [facility], [place] [address] Germaine Renteria MD [address] [facility] [address] [place] [phone] 11/10/2024 11:00 AM CDT Office Visit [facility] - GI [address] [facility], [place] [phone] documented as of this encounter Goals Goal Patient Goal Type Associated Problems Recent Progress Patient-Stated? Author Medication Management General On track( 025 2:11 PM TECHNOLOGY TRAINING ASSOCIATE) Davie Lujan, RN Note: Expected end date: ongoing Interventions: Take all medications as prescribed Let your doctor know right away about any changes in your medications Make sure to request a refill of your medication at least one week prior to your last dose documented as of this encounter Visit Diagnoses Not on filedocumented in this encounter Care Teams Business Integration Analyst Relationship Specialty Start Date End Date Jean Carlos Covarrubias MD [address] [place] [phone] PCP - General 02/12/18 04/21/23 Jean Carlos Covarrubias MD [address] [place] [address] PCP - General Family Medicine 04/22/23 documented as of this encounter
--- OUTSIDE RECORDS SUMMARY | 2024-08-15 17:10 | XMS_ITS | Encounter Summary ---
Author Organization [facility] Address [address] [place] [address] Phone Care Team Providers Care Hot Plate Plywood Press Operator Name Role Phone Jean Carlso Covarrubias MD Primary Care Provider Encounter Details Date Type Department Care Team (Late st Contact Info) Description 03/07/2022 Lab Requisition [facility] Laboratory Services [address] [place] [address] Marisela Nazario, ACETONE BUTTON PASTER, BRAKE MACHINE OPERATOR [address] [place] [address] Contact with and (suspected) exposure to potentially hazardous body fluids Social History Tobacco Use Types Packs/Day Years [...] Exposure Response Date Recorded In the last 10 days, have yo u been in contact with someone who was confirmed or suspected to have Coronavirus/COVID-19? No / Unsure 03/06/2022 2:25 PM [employer] D[employer] CONSULTANT documented as of this encounter Plan of Treatment Not on file documented as of this encounter Procedures Procedure Name Priority Date/Time Associated Diagnosis Comments HIV 1 & 2 ANTIBODY & ANTIGEN SCREEN Routine 03/06/2022 3:20 AM MI[employer]OS[employer] DYNAM[employer] CONSULTANT Contact with and (suspected) exposure to potentially hazardous body fluids HEP B SURFACE ANTIBODY - BLOOD PATH Routine 03/06/2022 3:20 AM MI[employer]OSOFT DYNAM[employer] CONSULTANT Contact with and (suspected) exposure to potentially hazardous body fluids HEPATITIS C ANTIBODY Routine 03/06/2022 3:20 AM MI[employer]OSOFT DYNAMICS CONSULTANT Contact with and (suspected) exposure to potentially hazardous body fluids BLOODBORNE PATHOGEN EXPOSED PATIENT PROFILE Routine 03/06/2022 3:20 AM MI[employer]OSOFT DYNAM[employer] CONSULTANT Contact with and (suspected) exposure to potentially hazardous body fluids documented in this encounter Results * HIV 1 & 2 ANTIBODY & ANTIGEN SCREEN (03/06/2022 3:20 AM MI[employer]OSOFT DYNAM[employer] CONSULTANT) HIV 1 & 2 ANTIBODY & ANTIGEN SCREEN NON DETECTED NON DETECTED [facility] ARCH [id number] 03/07/2022 2:50 PM MICROSOFT DYNAMICS CONSULTANT [facility] Blood Venipuncture / Unknown 03/06/2022 3:20 AM [employer] D[employer] CONSULTANT 03/07/2022 9:17 AM [employer] D[employer] CONSULTANT us Marisela Nazario ACETONE BUTTON PASTER, BRAKE MACHINE OPERATOR LAB SEND OUTS Fin al Result Performing Organization Address City/State/[facility] Co de Phone Number [facility] [address] [place] [address], * HEP B SURFACE ANTIBODY - BLOOD PATH (03/06/2022 3:20 AM MI[employer]OS[employer] DYNAM[employer] CONSULTANT) HEPATITIS B SURFACE ANTIBODY <8.00 mIU/mL [facility] ARCH [id number] B 03/07/2022 2:55 PM MI[employer]OSOFT DYNAM[employer] CONSULTANT [facility] Comment:Individual is consid ered not immune to HBV infection. Blood Venipuncture / Unknown 03/06/2022 3:20 AM [employer] D[employer] CONSULTANT 03/07/2022 9:18 AM [employer] D[employer] CONSULTANT us Marisela Nazario APRN, CNP HEMATOLOGY ORDERABL ES Final Result Performing Organization Address City/[facility] Co de Phone Number [facility] [address] [place] [address], [place] * HEPATITIS C ANTIBODY (03/06/2022 3:20 AM MI[employer]OS[employer] D[employer] CONSULTANT) hepatitis C antibody 0.19 <1 S/CO [facility] ARCH [id number] B 03/07/2022 2:48 PM MI[employer]OS[employer]FT D[employer]NAM[employer] CONSULTANT [facility] Comment: Signal/Cutoff ratio < 0.79 is Nondetected Signal/Cutoff ratio 0.80-0.99 is Grayzone Signal/Cutoff ratio > 0.99 is Detected Supplemental assays are recommended if signal/cutoff ratio is >/=1.00. Signal/cutoff ratio result >/= 5.00 is 97% predictive of positivity for recombinant immunoblot assay (RIBA) and will be reported to the [place] Department [facility] Public [facility] as required. Blood Venipuncture / Unknown 03/06/2022 3:20 AM [employer] D[employer] CONSULTANT 03/07/2022 9:18 AM [employer] D[employer] CONSULTANT us Marisela Nazario APRN, CNP CHEMISTRY ORDERABLE S Final Result Performing Organization Address [facility] de Phone Number [facility] [address] [place] [address], [place] documented in this encounter Visit Diagnoses Diagnosis Contact with and (suspected) exposure to potentially hazardous body fluids Personal history of contact with and (suspected) exposure to potentially hazardous body fluids documented in this encounter Care Teams Hot Plate Plywood Press Operator Relationship Specialty Start Date End Date Jean Carlos Covarrubias MD [address] [place] [address] PCP - General Pediatrics 11/26/17 documented as of this encounter
--- OUTSIDE RECORDS SUMMARY | 2024-08-15 17:10 | XMS_ITS | Encounter Summary ---
Author Organization [facility] Address [address] [place], [place] [address]J[place] [address] Care Team Providers Care Awning Finisher Name Role Phone Jean Carlos Covarrubias MD Primary Care Provider [phone] Jean Carlos Covarrubias MD Primary Care Provider [phone] Encounter Details Date Type Department Care Team (Late st Contact Info) Description 08/16/2020 Telephone [facility] General Surgery [address] [place] [address] Magan Ortiz MD [address] [phone] Social History Tobacco Use Types Packs/Day Years [...] Pallavi Santos RN documented in this encounter Plan of Treatment Upcoming Encounters Date Type Department Care Team (Late st Contact Info) Description 08/17/2024 4:45 PM CDT Hospital Encounter [facility] Health Imaging Services - Ultrasound [address] [place] [address] Hiro Schuler PA [address] [place] [phone] 09/06/2024 3:20 PM CDT Office Visit [facility] - Urology [address] [place] [phone] Hiro Schuler PA [address] [place] [phone] 09/08/2024 12:30 PM CDT [place] [facility] [place] [address] [place] [phone] [place] [address] [place] [address] [address] [place] [address] 11/10/2024 11:00 AM CDT Office Visit [facility] GI [address] [place] [phone] documented as of this encounter Goals Goal Patient Goal Type Associated Problems Recent Progress Patient-Stated? Author Medication Management General On track( 025 2:11 PM RELIGION PROFESSOR) Davie Lujan, RN Note: Expected end date: ongoing Interventions: Take all medications as prescribed Let your doctor know right away about any changes in your medications Make sure to request a refill of your medication at least one week prior to your last dose documented as of this encounter Visit Diagnoses Not on filedocumented in this encounter Care Teams Awning Finisher Relationship Specialty Start Date End Date Jean Carlos Covarrubias MD [address] [place] [phone] PCP - General 02/12/18 04/21/23 Jean Carlos Covarrubias MD [address] [place] [phone] PCP - General Family Medicine 04/22/23 documented as of this encounter
--- OUTSIDE RECORDS SUMMARY | 2024-08-15 17:10 | XMS_ITS | Data Portability ---
Author Organization [place] - [facility], Main Office Address [address] [place] [address] Assessment No assessment recorded. Plan of Treatment Reminders Order Date Submit Date Provider Last Modified By Organization Details Last Modified Time Details Appointments None recorded. Lab None recorded. Referral None recorded. Procedures None recorded. Surgeries None recorded. Imaging audiogram + tympanogram 2022 023 akMTPV [facility] ([facility] Scheduling, [address] [place] [address], [address], 3 16:42:49 Medication Orders cefdinir 300 mg capsule 2022 023 DENEEN [facility], [address], [phone], 3 17:03:18 ofloxacin 0.3 % ear drops 2022 023 WHITTIER [facility] #34395, [address], [phone], 3 17:03:13 Patient TargetsNo targets recorded. Patient InstructionsNo instructions recorded. Reason for Referral None Reported. Results Created Date Observation Date Name Description Value Unit Range Abnormal Flag Note LastModifiedBy Organization Detail LastModifiedTime 09/21/19 22 09/17/2021 audio gram + vikki sanders No observ ation record ed. [id number] [facility] [address] [facility] [address], [place], [address], 06/25/2022 21:55:05 10/22/19 22 10/17/2021 CT, sinus es, w/o contr ast No observ ation record ed. [id number] Not Available 06/25/2022 21:55:05 10/25/19 22 10/17/2021 CT, sinus es, w/o contr ast No observ ation record ed. [id number] Not Available 06/25/2022 21:55:05 09/02/19 23 08/26/2022 XR, elbow , 3 or more view No observ ation record ed. [email or web address] Not Available 11/2022 11:21:48 Result Notes None recorded. Problems Name Problem SNOMED Code Status Onset Date Resolution Date Notes Provider Name and Address Organization Details Recorded Time Dysfunctio n of bilateral eustachian tubes 7098018894622 100 Active 2021 Not Available [facility] 3 21:53:40 Acute sinusitis 99765908 Active 2021 Not Available [facility] 3 21:53:40 Chronic otitis media 12622862 Active 2021 Not Available [facility] 3 21:53:40 Chronic otitis media 36352127 Active 2021 Not Available [facility] 3 21:53:40 Chronic sinusitis 26838358 Active 2021 Not Available [facility] 3 21:53:40 Sensorineu ral hearing loss 63050031 Active 2021 Not Available [facility] 3 21:53:40 Chronic serous otitis media 99416895 Active 2021 Not Available [facility] 3 21:53:40 Chronic serous otitis media 77611148 Active 2022 Carlos Shetty MD [address] [place] [address], [place], [address] , [facility] 3 16:13:26 Problem Notes None recorded. Procedures Surgical History Date Name Laterality Status Provider Name and Address Organization Details Recorded Time 01/19/20 SEPTOPLASTY (SURG) completed Not Available [facility] 06/25/2022 21:55:00 Myringotomy Tube Placement completed Not Available [facility] 06/25/2022 21:53:02 reduction of nasal turbinate completed Not Available [facility] 06/25/2022 21:53:02 inflation of Eustachian tube using balloon completed Not Available [facility] 06/25/2022 21:53:02 Imaging Results Imaging Date Name Status LastModified by [facility] Details LastModified Time 09/17/2021 audiogram + tympanogram completed [id number] [facility] [address] [facility] [address], [place], [address], 06/25/2022 21:55:05 10/17/2021 CT, sinuses, w/o contrast completed [id number] Information not available 06/25/2022 21:55:05 10/17/2021 CT, sinuses, w/o contrast completed [id number] Information not available 06/25/2022 21:55:05 08/26/2022 XR, elbow, 3 or more view completed [email or web address] Information not available 09/01/2022 11:21:48 Procedure Notes None recorded. Medical Equipment None Reported. Allergies Allergen ID Allergen Name Allergen Category Reaction Reaction Severity Criticality Documentation Date Start Date Code Code System Note Provider Name and Address Organization Details Recorded Time 43042 prednison e medicatio n Not available Not available Not available 06/25/2022 8640 RxNorm Not Available [facility] 21:54:55 48108 doxycycli ne Not available Not available Not available Not available 06/25/2022 3640 RxNorm Not Available [facility] 21:54:55 02916 amoxicill in medicatio n Not available Not available Not available 06/25/2022 723 RxNorm Not Available [facility] 21:54:55 Medications Name Sig Start Date Stop Date Status Note LastModified by Organization Details LastModified Time binaxnow cov [facility] home rafi 07/17 completed Not Available Not Available Not Available prednisone 10 mg tablet TAKE 1 TABLET BY MOUTH DAILY FOR 5 DAYS 09/25 completed Not Available Not Available Not Available clindamycin HCl 300 mg capsule TAKE 1 CAPSULE BY MOUTH THREE TIMES DAILY FOR 10 DAYS 03/29 completed Not Available Not Available Not Available citalopram 40 mg tablet TAKE 1 TABLET BY MOUTH EVERY DAY 07/17 completed Not Available Not Available Not Available azithromyci n 250 mg tablet TK 2 TS PO ON DAY 1, THEN TK 1 T PO D FOR 4 DAYS 02/26 completed Not Available Not Available Not Available fluconazole 150 mg tablet TK 1 T PO QD 03/29 completed Not Available Not Available Not Available metoprolol succinate ER 50 mg tablet,exte nded release 24 hr TAKE 1 TABLET BY MOUTH EVERY DAY active Not Available Not Available No t Available citalopram 10 mg tablet TAKE 1 TABLET BY MOUTH DAILY FOR 2 DAYS 07/17 completed Not Available Not Available Not Available hydrocodone 5 mg-acetamin ophen 325 mg tablet TAKE 1 TO 2 TABLETS BY MOUTH EVERY 6 HOURS NEEDED FOR MODERATE TO SEVERE PAIN 12/18 completed Not Available Not Available Not Available ondansetron HCl 8 mg tablet 09/28 completed Not Available Not Available Not Available ondansetron HCl 4 mg tablet TAKE 1 TABLET BY MOUTH EVERY 8 HOURS NEEDED FOR NAUSEA active Not Available Not Available No t Available famotidine 40 mg tablet active Not Available Not Available Not Available clindamycin HCl 150 mg capsule Take 1 capsule every 6 hours by oral route for 7 days. active Not Available Not Available No t Available pantoprazol e 20 mg tablet,melany yed release TAKE 1 TABLET BY MOUTH EVERY DAY active Not Available Not Available No t Available nortriptyli ne 25 mg capsule TK 1 C PO HS active Not Available Not Available No t Available oxycodone-a cetaminophe n 5 mg-325 mg tablet 09/28 completed Not Available Not Available Not Available ofloxacin 0.3 % ear drops INSTILL 10 DROPS TO AFFECTED EAR EVERY DAY active Not Available Not Available No t Available citalopram 20 mg tablet 07/17 completed Not Available Not Available Not Available metoclopram lanny 5 mg tablet TAKE 1 TABLET BY MOUTH THREE TIMES DAILY BEFORE MEALS 02/26 completed Not Available Not Available Not Available methocarbam ol 750 mg tablet 02/26 completed Not Available Not Available Not Available DOK 100 mg capsule TK ONE C PO BID 09/28 completed Not Available Not Available Not Available phenazopyri dine 100 mg tablet TAKE 1 TABLET BY MOUTH THREE TIMES DAILY FOR 3 DAYS 09/25 completed Not Available Not Available Not Available doxycycline monohydrate 100 mg capsule 09/25 completed Not Available Not Available Not Available hydrocodone 7.5 mg-acetamin ophen 325 mg tablet TAKE 1 TABLET BY MOUTH EVERY 4 HOURS NEEDED 02/14 completed Not Available Not Available Not Available cephalexin 500 mg capsule 03/29 completed Not Available Not Available Not Available pantoprazol e 40 mg tablet,melany yed release active Not Available Not Available Not Available ranitidine 300 mg capsule TK ONE C PO 1 TIME D 09/28 completed Not Available Not Available Not Available prednisone 50 mg tablet 09/28 completed Not Available Not Available Not Available budesonide 0.5 mg/2 mL suspension for nebulizatio n POUR 1 VIAL IN RINSE BID active Not Available Not Available No t Available norethindro ne acetate 5 mg tablet TAKE 1 TABLET BY MOUTH DAILY active Not Available Not Available No t Available methylpredn isolone 4 mg tablets in a dose pack FOLLOW PACKAGE DIRECTION S 03/29 completed Not Available Not Available Not Available albuterol sulfate HFA 90 mcg/actuati on aerosol inhaler INHALE 2 PUFFS BY MOUTH EVERY 6 HOURS NEEDED FOR COUGH active Not Available Not Available No t Available oxybutynin chloride 5 mg tablet TAKE 1 TABLET BY MOUTH TWICE DAILY 02/26 completed Not Available Not Available Not Available ondansetron 4 mg disintegrat ing tablet DISSOLVE 1 TABLET ON THE TONGUE EVERY 6 HOURS NEEDED FOR NAUSEA active Not Available Not Available No t Available cefdinir 300 mg capsule TAKE 1 CAPSULE BY MOUTH EVERY 12 HOURS active Not Available Not Available No t Available amoxicillin 875 mg-potassiu m clavulanate 125 mg tablet TAKE 1 TABLET BY MOUTH TWICE DAILY WITH MORNING AND EVENING MEALS 12/18 completed Not Available Not Available Not Available Ciprodex 0.3 %-0.1 % ear drops,suspe nsion INSTILL 4 DROPS INTO AFFECTED EAR(S) BY OTIC ROUTE 2 TIMES PER DAY FOR 7 DAYS 02/26 completed Not Available Not Available Not Available duloxetine 30 mg capsule,del ayed release active Not Available Not Available Not Available lactulose 10 gram/15 mL oral solution TAKE 30ML BY MOUTH DAILY AND ADJUST DOSE TO MAINTAIN 2 SOFT STOOLS DAILY 09/25 completed Not Available Not Available Not Available pregabalin 25 mg capsule TAKE 1 CAPSULE BY MOUTH EVERY MORNING AND 2 CAPSULES BY MOUTH EVERY EVENING active Not Available Not Available No t Available pregabalin 75 mg capsule active Not Available Not Available Not Available pregabalin 150 mg capsule 03/29 completed Not Available Not Available Not Available Vitamin D3 2021 active Not Available Not Available Not Avai lable peg 3350-electr olytes 236 gram-22.74 gram-6.74 gram-5.86 gram solution TAKE 4000 ML BY MOUTH 1 TIME FOR 1 DOSE active Not Available Not Available No t Available Amitiza 8 mcg capsule 02/26 completed Not Available Not Available Not Available Linzess 145 mcg capsule TAKE 1 CAPSULE BY MOUTH EVERY DAY BEFORE BREAKFAST ON EMPTY STOMACH AT LEAST 30 MINUTES PRIOR TO MEAL 02/26 completed Not Available Not Available Not Available Victoza 3-Cameron 0.6 mg/0.1 mL (18 mg/3 mL) subcutaneou s pen injector INJECT 1.8MG UNDER THE SKIN ONCE DAILY active Not Available Not Available No t Available TechLITE Pen Needle 32 gauge x 5/32 USE DIRECTED WITH VICTOZA INJECTION S active Not Available Not Available No t Available Linzess 72 mcg capsule 09/25 completed Not Available Not Available Not Available ID NOW COVID-19 Test Kit TEST DIRECTED TODAY 07/17 completed Not Available Not Available Not Available BinaxNOW COVID-19 Ag Self Test kit TEST DIRECTED TODAY 07/17 completed Not Available Not Available Not Available Mounjaro 2.5 mg/0.5 mL subcutaneou s pen injector INJECT 1 PEN INJECTOR SUBCUTANE OUSLY ONCE A WEEK 07/17 completed Not Available Not Available Not Available Mounjaro 2021 active Not Available Not Available Not Avai lable Vitals Date Recorded Body mass index (BMI) Body height Body temperature Body weight Provider Name and Address Organization Details Last Updated DateTime 07/09/2021 38.2 kg/m2 157.48 cm 97.7 [degF] 60538.37 g Not Available [facility] 06/25/2022 21:53:14 Date Recorded Body mass index (BMI) Body height Body temperature Body weight Provider Name and Address Organization Details Last Updated DateTime 09/26/2021 38.2 kg/m2 157.48 cm 97.4 [degF] 04653.73 g Not Available [facility] 06/25/2022 21:53:14 Date Recorded Body mass index (BMI) Body height Body temperature Body weight Provider Name and Address Organization Details Last Updated DateTime 02/27/2022 41.3 kg/m2 157.48 cm 97.7 [degF] 701096.1 6 g Not Available [facility] 06/25/2022 21:53:14 Date Recorded Body height Body mass index (BMI) Body weight Body temperature Provider Name and Address Organization Details Last Updated DateTime 07/17/2022 157.48 cm 41.2 kg/m2 036764.28 g 97.9 [degF] Zulema Castillo CMA [place] [employer] [facility] 07/17/2022 15:58:16 Date Recorded Body height Body mass index (BMI) Body weight Body temperature Provider Name and Address Organization Details Last Updated DateTime 12/31/2022 157.48 cm 40.8 kg/m2 162741.82 g 98 [degF] Nicolle Nicole RN [place] [employer] [facility] 12/31/2022 16:50:13 Social History Question Answer Notes LastModified by Organizat ion Details LastModified Time Tobacco Smoking Status Former Smoker QUIT IN 2017 Not Available [facility] 06/25/2022 21:52:56 What Is Your Level Of Alcohol Consumption? None [id number] Information not available 06/25/2022 In The 14 Days Before Symptom Onset, Have You Had Close Contact With A Laboratory-confirm ed COVID-19 While That Case Was Ill? No [id number] Information not available 06/25/2022 In The 14 Days Before Symptom Onset, Have You Had Close Contact With A Person Who Is Under Investigation For COVID-19 While That Person Was Ill? No [id number] Information not available 06/25/2022 Have You Recently Traveled Abroad? No [id number] Information not available 06/25/2022 Sex: Unknown Functional Status None recorded. Mental Status None recorded. Family History Nothing Reported Notes:CHILDREN HAVE ENT PROB LEMS Medical History Condition Response MRSA N LUNG DISEASE/DISORDER N HISTORY OF DRUG ABUSE N COPD N RADIATION / CHEMOTHERAPY N BLOOD DISEASES N EAR OR HEARING PROBLEMS N SHINGLES N DEPRESSION (INCLUDING POST ) N STROKE/TIA N ULCERS N OBESITY Y ANEURYSM N USE OF BLOOD THINNERS N PARATHYROID DISEASE N CHF N AIDS/HIV N FRACTURES N HYPERTENSION N TOURETTE'S N BLOOD TRANSFUSION N ANEMIA/BLOOD DISORDER N CHRONIC EAR INFECTIONS Y TUBERCULOSIS N SLEEP APNEA Y ALLERGIES/HAYFEVER N INSOMNIA N HIGH CHOLESTEROL / HYPERLIPIDEMIA N HYPERTHYROIDISM N HYPOTHYROIDISM N HAVE YOU BEEN HOSPITALIZED OR SEEN IN [facility] ER IN THE PAST YEAR ? N HISTORY WITH COMPLICATIONS WITH ANESTHES IA ? Y NO SIGNIFICANT PAST MEDICAL HISTORY N DIABETES, TYPE N ENT N SEASONAL ALLERGIES N HEARTBURN / REFLUX Y HEPATITIS / LIVER DISEASE N SLEEP DISORDER N SEIZURES/EPILEPSY N HEADACHES/MIGRAINES Y PACEMAKER N DIZZINESS N HEART DISEASE/HEART PROBLEMS N CANCER: SPECIFY N ANESTHESIA COMPLICATIONS N Gynecological HistoryNo gynecological history recorded. Obstetrics History GPAL:G 0 P 0 0 0 0 Past Encounters Encounter ID Performer Location Encounter Start Date Encounter Closed Date Diagnosis/Indication Diagnosis SNOMED-CT Code Diagnosis ICD10 Code Diagnosis Note [id number] [facility] [address] [place] [address] 12/13/2020 00:00:00 12/13/2020 13:54:11 [id number] [facility] [address] [place] [address] 12/18/2020 00:00:00 12/18/2020 16:16:10 [id number] [facility] [place] [address] [place] [address] 02/14/2021 00:00:00 02/14/2021 10:39:14 [id number] _ATHENA_[facility]_ DEFAULT_1 _1 , 03/29/2021 00:00:00 03/29/2021 11:12:42 [id number] [facility] [place] [address] [place] [address] 04/04/2021 00:00:00 04/04/2021 16:25:23 [id number] [facility] [place] [address] [place] [address] 07/09/2021 00:00:00 07/09/2021 10:14:29 [id number] [facility] [address] [place] [address] 09/26/2021 00:00:00 09/26/2021 10:24:12 [id number] [facility] [address] [place] [address] 02/27/2022 00:00:00 02/27/2022 15:14:37 [id number] MD CHERRY [facility] [place] [address] [place] [address] 07/17/2022 15:52:44 07/17/2022 16:16:00 Chronic serous otitis media 66635146 H65.21 [id number] MD CHERRY [facility] [place] [address] [place] [address] 12/31/2022 16:32:46 12/31/2022 17:06:16 Chronic serous otitis media 05212548 H65.21 Health Concerns Section Related Observation LastModified by Organization Detai ls LastModified Time None Recorded Concern Status LastModified by Organization Details LastModified Time None Recorded Advance Directives Directive None Recorded Payers Encounter Date Sequence Insurance Name Policy Number Policy Hale Covered Member ID Hale Member ID Guarantor Name 07/17/2022 1 [place] [id number] Esequiel Sanders Karen [id number] Esequiel Sanders Karen 07/17/2022 2 [place] [employer] [facility] (EPO) [id number] Davie Jones [id number] Esequiel Sanders Karen 12/31/2022 1 [place] [id number] Esequieljessica Jones [id number] Esequiel M Karen Notes Date Note Type Note Provider Name and Address Organization Details Recorded Time 07/17/2022 text/html this patient reports that she has too many symptoms to list but the greatest seems to be right ear pain and a sensation of fluid. An audiogram 1 year ago demonstrated a type B tympanogram but otherwise nearly normal hearing Carlos Shetty MD [address] [place] [address] [place], [address], [employer] [facility] 07/17/2022 16:13:43 12/31/2022 text/html The patient reports a draining left ear. She has a PE tube. She was seen in urgent care and was given an antibiotic. Carlos Shetty MD [address] [place] [address] [address], [place], [address], [employer] [facility] 12/31/2022 17:03:27 OBGyn Episode No OBEpisode recorded.
--- OUTSIDE RECORDS SUMMARY | 2024-08-15 17:10 | XMS_ITS | Encounter Summary ---
Author Organization [facility] Address [facility] [place] [address] Care Team Providers Care Field Technical Specialist Name Role Phone Jean Carlos Covarrubias MD Primary Care Provider [phone] Jean Carlos Covarrubias MD Primary Care Provider [phone] Encounter Details Date Type Department Care Team (Late Contact Info) Description 02/08/2018 Telephone [facility] [address] [place] [address] Felice Torres Jr., MD [facility] [address] [facility] [address] [place] [address] Social History Tobacco Use Types Packs/Day Years [...] as of this encounter Plan of Treatment Upcoming Encounters Date Type Department Care Team ([facility] Contact Info) Description 08/17/2024 4:45 PM CDT Hospital Encounter [facility] Health Imaging Services - Ultrasound [address] [place] [address] Hiro Schuler PA [address] [place] [phone] 09/06/2024 3:20 PM CDT [facility] [address] [place] [address] Hiro Schuler PA [address] [place] [phone] 09/08/2024 12:30 PM CDT [facility] Visit [facility] [address] [facility] [place] [phone] Germaine Renteria MD [address] [place] [phone] 11/10/2024 11:00 AM CDT [facility] [place] [address] [place] [phone] documented as of this encounter Visit Diagnoses Not on filedocumented in this encounter Additional Health Concerns Infection Onset Date Last Indicated Resolved Time COVID-19 Under Investigation 06/08/2020 06/08/2020 06/08/2020 4:54 PM TELEPHONE ORDER CLERK documented as of this encounter Care Teams Field Technical Specialist Relationship Specialty Start Date End Date Jean Carlos Covarrubias MD [address] [place] [phone] PCP - General 02/12/18 04/21/23 Jean Carlos Covarrubias MD [address] [place] [phone] PCP - General Family Medicine 04/22/23 documented as of this encounter
--- OUTSIDE RECORDS SUMMARY | 2024-08-15 17:10 | XMS_ITS | Encounter Summary ---
Author Organization [facility] Address [address] [place], [place] [address] [address] Care Team Providers Care Geothermal Technician Name Role Phone Jean Carlos Covarrubias MD Primary Care Provider [phone] Jean Carlos Covarrubias MD Primary Care Provider [phone] Encounter Details Date Type Department Care Team (Late st Contact Info) Description 08/14/2020 Telephone [facility] [address] [place] [address] Magan Ortiz MD [address] [phone] Social History Tobacco Use Types Packs/Day Years [...] 08/17/2024 4:45 PM CDT Hospital Encounter [facility] Health Imaging Services - Ultrasound [address] [place] [address] Hiro Schuler PA [address] [place] [phone] 09/06/2024 3:20 PM CDT Office Visit [facility] [address] [place] [phone] Hiro Schuler PA [address] [place] [phone] 09/08/2024 12:30 PM CDT [place] [facility] [place] [address] [place] [phone] [place] [address] [place] [address] [address] [place] [address] 11/10/2024 11:00 AM CDT Office Visit [facility] [address] [place] [phone] documented as of this encounter Goals Goal Patient Goal Type Associated Problems Recent Progress Patient-Stated? Author Medication Management General On track( 025 2:11 PM LOCKSTITCH TOPSTITCHER) Davie Lujan, RN Note: Expected end date: ongoing Interventions: Take all medications as prescribed Let your doctor know right away about any changes in your medications Make sure to request a refill of your medication at least one week prior to your last dose documented as of this encounter Visit Diagnoses Not on filedocumented in this encounter Care Teams Geothermal Technician Relationship Specialty Start Date End Date Jean Carlos Covarrubias MD [address] [place] [phone] PCP - General 02/12/18 04/21/23 Jean Carlos Covarrubias MD [address] [place] [phone] PCP - General Family Medicine 04/22/23 documented as of this encounter
--- OUTSIDE RECORDS SUMMARY | 2024-08-15 17:10 | XMS_ITS | Clinical Summary ---
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 Recommend trial of sleeping in wrist [...] 01/20/2022 Assessment & Plan (05/19/2022 3:32 PM PROFESSOR OF VOICE): Will obtain xrays though favor muscular and [...] needed. Assessment & Plan (06/16/2023 3:54 PM PROFESSOR OF VOICE): Lately notes head/scalp pain and other intermittent aches/pains which primarily seem to correlate with working out. She has jointed a [employer] gym, discussed that while I am quite happy that she is exercising, generally would prefer a lower impact activity. 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 Discussed that we could try increasing her [...] needed. Assessment & Plan (06/30/2022 12:32 PM PROFESSOR OF VOICE): Widespread pain improved with the addition of [...] needed. Assessment & Plan (05/19/2022 3:32 PM PROFESSOR OF VOICE): At this time will discontinue Celexa and [...] 10/07/2017 Influenza A 04/14/2017 Chronic sinusitis 09/06/2015 Encounters Date Type Department Care Team Description 07/25/[address] [address] [place] Short from Last 3 Months Immunizations Immunization Administration Dates Next Due PPD TEST 08/26/2022 Surgical History Surgery Date Site/Laterality Comments HYSTERECTOMY Medical History Medical History Date Comments Sinusitis Migraines Social History Tobacco Use Types Packs/Day Years [...] on file Legal Sex Female 1:50 AM PROFESSOR OF VOICE Gender Identity Not on file Sexual Orientation Not on file Obstetrics History Last Filed Vital Signs Vital Sign Reading Time Taken Comments Blood Pressure 126/66 03/21/2024 1:30 PM PROFESSOR OF VOICE Pulse 57 03/21/2024 1:30 PM PROFESSOR OF VOICE Temperature 36.8 C (98.2 F) 03/21/2024 5:12 AM PROFESSOR OF VOICE Respiratory Rate 12 03/21/2024 1:30 PM PROFESSOR OF VOICE Oxygen Saturation 95% 03/21/2024 1:30 PM PROFESSOR OF VOICE Inhaled Oxygen Concentration - - Weight 108.4 kg (239 lb) 03/21/2024 3:37 AM PROFESSOR OF VOICE Height 157.5 cm (5' 2 ) 03/21/2024 3:37 AM PROFESSOR OF VOICE Body Mass Index 43.71 03/21/2024 3:37 AM PROFESSOR OF VOICE Plan of Treatment Health Maintenance Due Date Last Done Comments Breast Cancer Screening-Mammogram 1982 Depression Screening 1982 Hepatitis C Screening 1982 DTaP/Tdap/Td Vaccine (1 - Tdap) 1993 Varicella Vaccines (1 of 2 - 13+ 2-dose series) 11/04/1995 Hepatitis B Screening 2000 Regular Well Visit/Exam 18-64 2000 Covid-19 Vaccine ( season) 2023 12/17/2020, 11/19/2020 Influenza Vaccine (Season Ended) 2024 01/22/2023, 02/20/2022, 02/15/2021, Additional history exists HPV Vaccines Aged Out No longer eligi ble based on patient's age to complete this topic Pneumococcal vaccine <65 Aged Out No longer eligible based on patient's age to complete this topic [facility] [employer] [place] [facility] Care Teams Metal Bending Machine Operator Relationship Specialty Start Date End Date Jean Carlos Covarrubias MD [address] [place] [address] PCP - General 08/03/16 Fco Florez MD [address] [place] [address] Consulting Physician Rheumatology 12/19/20
--- OUTSIDE RECORDS SUMMARY | 2024-08-15 17:10 | XMS_ITS | Clinical Summary ---
Author Organization [facility] Address [address] [place] [address] Phone Care Team Providers Care Credit Card Interviewer Name Role Phone Jean Carlos Covarrubias MD Primary Care Provider [phone] Allergies Active Allergy Reactions Criticality Noted Date Comments Amoxicillin Vomiting 02/03/2018 Other reaction(s): Vomiting Ciprofloxacin Vomiting 10/27/2018 Doxycycline Unknown 01/05/2020 Patient stated not allergic to this med during prompt care visit 03/23/2021 Sulfamethoxazole-Trimeth oprim Other (see Comments) 07/16/2018 Medications citalopram (CELEXA) 40 MG Tablet Take 40 mg by mouth daily. Active Cholecalciferol (VITAMIN D-3 PO) Take 2,000 Units by mouth. Active PROBIOTIC PRODUCT PO Take by mouth. Acti ve Norethindrone Acetate 5 MG Tablet TK 1 T PO QD 0 Active linaCLOtide (LINZESS PO) Take 72 mg by mouth daily. Active pregabalin (Lyrica) 150 MG Capsule Take 150 mg by mouth daily. Active Doxycycline Monohydrate 100 MG Capsule 1 Active guaiFENesin (Mucinex) 600 MG TABLET SR 12 HRIndications:C ough Take 1 Tablet by mouth 2 times daily. 30 Tablet 1 Active methylPREDNISol one (Medrol) 4 MG Tablet Therapy PackIndications :Cough Use as per instructions on package. 21 Tablet 1 Active ketorolac (TORADOL) 10 MG Tablet Take 1 Tablet by mouth every 6 hours as needed for Moderate or more severe pain. 20 Tablet 4 Active Active Problems Problem Noted Date Diagnosed Date UARS (upper airway resistance syndrome) 09/05/19 19 Overview (09/04/2018): Mild positional CHANTEL DNS (deviated nasal septum) 09/04/2018 Tinnitus, bilateral 07/16/2018 Retracted tympanic membrane, right 07/16/2018 PNAR (perennial non-allergic rhinitis) 9 Hypertrophy of inferior nasal turbinate 07/17/19 19 Referred otalgia, left 07/16/2018 Tympanosclerosis involving t ympanic membrane only, bilateral 07/16/2018 TMJ (temporomandibular joint syndrome) 9 Malocclusion of teeth 07/16/2018 Persistent hypersomnia 07/16/2018 Snoring 07/16/2018 Near syncope 07/16/2018 Immunizations Immunization Administration Dates Next Due Influenza Vaccine 02/03/2018 Influenza Vaccine, Quadrivalent, PF 02/20/2022,1 06/25/2019 Influenza, Seasonal, Injectable, Undefined 02/15 Family History Medical History Relation Name Comments Diabetes Father No Known Problems Mother Relation Name Status Comments Father Mother Social History Tobacco Use Types Packs/Day Years [...] Sign Reading Time Taken Comments Blood Pressure 124/73 01/24/2024 12:00 PM CDT Pulse 65 01/24/2024 12:00 PM CDT Temperature 36.4 C (97.6 F) 01/24/2024 8:43 AM CDT Respiratory Rate 16 01/24/2024 12:00 PM CDT Oxygen Saturation 99% 01/24/2024 12:00 PM CDT Inhaled Oxygen Concentration - - Weight 107 kg (236 lb) 04/11/2024 8:01 AM CLINICAL SERVICES MANAGER Height 157.5 cm (5' 2 ) 04/11/2024 8:01 AM CLINICAL SERVICES MANAGER Body Mass Index 43.16 04/11/2024 8:01 AM CLINICAL SERVICES MANAGER Plan of Treatment Health Maintenance Due Date Last Done Comments Mammogram 1982 TdaP Immunization 1982 Hepatitis B Immunization (1 of 3 - 19+ 3-dose series) 2001 Discussion re Starting/Frequency of Mammograms 2022 SARS-COV-2 Immunization ( - season) 2023 12/17/2020, 11/19/2020 Influenza Immunization (Season Ended) 2024 01/22/2023, 02/20/2022, 02/15/2021, Additional history exists Respiratory Syncytial Virus (RSV) Immunization (Adult) (1 - 1-dose 75+ series) 2057 Hepatitis C Virus (HCV) Screening Completed 10/16/2022, 03/06/2022, 03/06/2022 Meningococcal Immunization (ACWY) Aged Out No longer eligible based on patient's age to complete this topic Pneumococcal Immunization Combined Aged Out No longer eligible based on patient's age to complete this topic Rotavirus Immunization Aged Out No lo nger eligible based on patient's age to complete this topic Medical Devices Implanted Type Area Drainage Inspector Device Identifier Shelf Expiration Date Model / Serial / Lot Treia Soft With Side Holes Ureteral Stent 6f X 24 Cm Implanted:Qty: 1 on 05/18/2020 by Jhony Miranda MD at [facility] Right: [employer] 01/01/2023 [id number] / [id number] / [id number] Description:Special PER [employer] Procedures Procedure Name Priority Date/Time Associated Diagnosis Comments HEPATITIS C ANTIBODY Routine 10/16/2022 6:50 PM CDT Personal history of exposure to potentially hazardous body fluids from Last 3 Months or Most Recently Relevant to Health Maintenance Results * HEPATITIS C ANTIBODY (10/16/2022 6:50 PM CDT) hepatitis C antibody 0.14 <1 S/CO [facility] [id number] B 10/17/2022 5:53 PM CDT [facility] Comment: Signal/Cutoff ratio < 0.79 is Nondetected Signal/Cutoff ratio 0.80-0.99 is Grayzone Signal/Cutoff ratio > 0.99 is Detected Supplemental assays are recommended if signal/cutoff ratio is >/=1.00. Signal/cutoff ratio result >/= 5.00 is 97% predictive of positivity for recombinant immunoblot assay (RIBA) and will be reported to the [place] Department of Public Health as required. Blood Venipuncture / Unknown 10/16/2022 6:50 PM CDT 10/16/2022 6:50 PM CDT us Corbin Zhou PAC CHEMISTRY ORDERABLES Final R esult [facility] [address] [place] [address], from Last 3 Months or Most Recently Relevant to Health Maintenance Insurance [employer] * Guarantor: [employer] Account Type Relation to Patient Date of Phone Billing Address Institutional Other [id number] [place] [address] [facility] GENER[facility] Advance Directives Documents on File Type Date Recorded Patient Inventory Control Clerk Expl anation Other Advance Directive 09/27/2021 1:23 PM wireless event monitoring Care Teams Credit Card Interviewer Relationship Specialty Start Date End Date Jean Carlos Covarrubias MD [address] [place] [address] PCP - General Pediatrics 11/26/17
--- OUTSIDE RECORDS SUMMARY | 2024-08-15 17:10 | XMS_ITS | Clinical Summary ---
Author Organization [facility] Address [address] [place] [address] Care Team Providers Care Breeding Manager Name Role Phone Jean Carlos Covarrubias MD Primary Care Provider [phone] Source Comments [facility],non-owned Affiliates and Associated Physician Practices is amultiple site organization consisting of ambulatory clinics and hospital sitesin [place], [place], [place] and [place]. This disclosure is being madepursuant to the Care Everywhere program and may not contain all information available regarding this patient. Last updated 18.[facility] Allergies Active Allergy Reactions Criticality Noted Date Comments Amoxicillin Vomiting 02/03/2018 Amoxicillin-Pot Clavulanate Nausea and/or Vomiting Low 10/24/2020 Ciprofloxacin Nausea and/or Vomiting 10/27/2018 Perflutren Lipid Microsphere Other 12/25/2020 Pt stated she could not breathe- SaO2 100%. Lungs CTA. Pt unable to tolerate. Doxycycline Unknown 01/05/2020 Per outside records, does not seem to be active allergy Prednisone Unknown 01/05/2020 Sulfamethoxazole W-Trimethoprim Itching Medications * This document contains information received from the source organization and may not represent a complete record from that organization. * Be aware that medications may not be up to date on this document. Alwaysverify current medications with the patient. albuterol HFA (PROVENTIL; VENTOLIN; PROAIR) 108 (90 Base) MCG/ACT inhaler Inhale 2 (two) puffs by mouth as needed Active DULoxetine (CYMBALTA) 30 MG capsule 022 Active pantoprazole EC (Protonix) 20 MG tablet Take 1 (one) tablet by mouth once daily Active pregabalin (Lyrica) 25 MG capsule Take 1 (one) capsule by mouth every morning 023 Active ondansetron (Zofran) 4 MG tablet Take 1 (one) tablet by mouth every 8 hours as needed Active ofloxacin (Floxin) 0.3 % otic solutionIndicat ions:Chronic diffuse otitis externa of both ears Instill 5 (five) drops into both ears 2 times daily 5 mL Active Additional Information Patient taking differently:5 drop Each EarPRN, Reported on 05/13/2024 traZODone (Desyrel) 50 MG tablet Take 1 (one) tablet by mouth as needed 024 Active fluticasone propionate (Flonase) 50 MCG/ACT nasal spray [place] 2 (two) sprays into each nostril once daily 48 g 4 024 Active Additional Information Patient taking differently:2 spray Each NostrilPRN, Reported on 10/05/2023 ZOLMitriptan, disintegrating, (Zomig ZMT) 5 MG tablet Take 1 (one) tablet by mouth as needed Maximum daily dose: 10 mg/24 hours 9 tablet 6 024 Active riboflavin 400 MG capsule Take 1 (one) capsule by mouth once daily 100 capsule 6 Active Additional Information Patient not taking.Reported on 05/12/2024 Magnesium-Potas sium 70-99 MG CAPS Take 2 capsules by mouth once daily Active furosemide (Lasix) 20 MG tabletIndicatio ns:Leg swelling Take 1 (one) tablet by mouth once daily as needed 90 tablet Active Additional Information Patient not taking.Reported on 06/09/2024 famotidine (Pepcid) 20 MG tabletIndicatio ns:Laryngophary ngeal reflux (LPR) Take 1 (one) tablet by mouth 2 times daily 120 tablet 3 024 Active Additional Information Patient not taking.Reported on 06/09/2024 Galcanezumab-gn lm (Emgality) 120 MG/ML auto-injector pen Inject 1 mL subcutaneously every 30 days 3 mL 3 024 Active Additional Information Patient not taking.Reported on 05/12/2024 polyethylene glycol 3350 (Miralax) 17 GM/SCOOP powderIndicatio ns:Constipation , unspecified constipation type Take 17 (seventeen) g by mouth once daily 238 g 025 Active Additional Information Patient not taking.Reported on 05/13/2024 ondansetron, disintegrating, (Zofran ODT) 4 MG tablet Take 1 (one) tablet by mouth as needed for Nausea/Vomiting 024 Active Other Optavia diet Active nitrofurantoin monohyd macro crystals (Macrobid) 100 MG capsule Take 1 (one) capsule by mouth 2 times daily with morning and evening meal 10 capsule 025 Active phenazopyridine (Pyridium) 200 MG tablet Take 1 (one) tablet by mouth 3 times daily as needed 12 tablet 025 Active ciprofloxacin-d exAMETHasone (Ciprodex) 0.3-0.1 % otic suspensionIndic ations:OME (otitis media with effusion), left,Myringotom y tube status,Chronic diffuse otitis externa of both ears Apply 4 drops to the affected ear twice daily x 7 days 10 mL 025 Active metoprolol succinate XL 24hr (Toprol XL) 50 MG tablet TAKE 1 TABLET BY MOUTH DAILY 90 tablet 3 025 Active metoprolol succinate XL 24hr (Toprol XL) 50 MG tablet Take 1 (one) tablet by mouth once daily 90 tablet 3 024 2024 Discontinued Active Problems Problem Noted Date Diagnosed Date Metabolic dysfunction-associ ated steatotic liver disease (MASLD) 05/12/2024 Overview (05/12/2024): 05/12/24 Fibroscan CAP 333, LSM 6.5 kPa Fall 12/15/2023 Fibromyalgia 01/14/2021 Overview (07/01/2021): Labs 01/14/2021 AVISE negative CRP 32 and ESR 38 CBC and CMP unremarkable Last Assessment & Plan: 40yoF with a history of IC, IBS, [...] or in 6 months to reassess . PVC (premature ventricular contraction) 01/05/20 Assessment & Plan (05/17/2021 11:56 AM BROKE BEATER OPERATOR): Evaluated by EP in the past. Very rare episodes, Dr. Roper would not recommend beta blockers at the time. EKG today is NSR in the 60s. Assessment & Plan (01/05/2020 11:14 AM CDT): She has low burden of symptomatic PVCs, <1% via 30 day event monitor in 11/2019. BB likely would do more harm than good (make her more tired). Reassurance offered. F/U PRN only. PAC (premature atrial contraction) 01/05/2020 Assessment & Plan (08/27/2020 1:54 PM CDT): Per Dr. Jin of rare PACs seen on event monitor and triggered by patient to be symptomatic. Very rare episodes, would not recommend beta blockers currently. Assessment & Plan (01/05/2020 10:32 AM CDT): Episodes of rare PACs seen on event monitor and triggered by patient to be symptomatic. Very rare episodes, would not recommend beta blockers currently. Other chest pain 01/05/2020 Assessment & Plan (05/17/2021 12:09 PM BROKE BEATER OPERATOR): Continues to have atypical features. Stress test last year only achieved achieved 58% of predicted max heart rate, EKG and ECHO portions negative for ischemia. Pain worse status post COVID infection in March, ECHO pending, trail NSAIDs for one week and my chart message follow up symptoms. Dr. Iniguez or Nae in 3 months. Assessment & Plan (08/27/2020 1:53 PM CDT): Atypical and typical features Plan stress echo for evaluation of cardiac causes Assessment & Plan (01/05/2020 11:11 AM CDT): Patient with atypical chest pain. I told patient to start back exercising slowly. If chest pain worsens, she needs to notify us, and we will order stress echocardiogram. I will not schedule any particular follow-up, patient knows to call if any recurrent/worsening symptoms. 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 Her previous monitors could have missed her events because she has them every few days. Will obtain 30 day event monitor. Patient will undergo ambulatory heart rhythm monitoring to rule out arrhythmias. After I get the results, if I see anything significantly abnormal, I will contact the patient right away. Otherwise, we will discuss at next appointment. 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 # followup in 3 months Irritable bowel syndrome with constipation 05/23 Interstitial cystitis 12/02/2018 S/P laparoscopic procedure 10/04/2018 DNS (deviated nasal septum) 09/04/2018 UARS (upper airway resistance syndrome) 05/11/20 19 Overview (10/06/2019): Overview: Mild positional CHANTEL Hypertrophy of inferior nasal turbinate 07/17/19 19 Malocclusion of teeth 07/16/2018 Near syncope 07/16/2018 Persistent hypersomnia 07/16/2018 PNAR (perennial non-allergic rhinitis) 9 Referred otalgia, left 07/16/2018 Retracted tympanic membrane, right 07/16/2018 Snoring 07/16/2018 Tinnitus, bilateral 07/16/2018 TMJ (temporomandibular joint syndrome) 9 Tympanosclerosis involving t ympanic membrane only, bilateral 07/16/2018 Chronic pelvic pain in female 10/07/2017 Dyschezia 10/07/2017 Dysuria 10/07/2017 Dyspareunia in female 10/07/2017 History of endometriosis 10/07/2017 Influenza A 04/14/2017 Resolved Problems Problem Noted Date Diagnosed Date Resolved Date Incisional hernia, without o bstruction or gangrene 08/28/2020 08/29/2020 Other chest pain 08/27/2020 08/27/2020 Encounters Date Type Department Care Team Description 07/19/2024 Refill [facility] - Cardiology [address] [place] [address] Andrew Roper MD Refill Request 07/08/2024 9:00 AM CDT - 07/08/2024 11:59 PM CDT Hospital Encounter [facility] CAT SCAN [address] [place] [phone] Germaine Renteria MD Discharge Disposition: Home or Self Care 07/08/2024 Travel 06/24/2024 Orders Only [facility] - ENT [address] [place] [phone] Medardo Carpenter APRN-ANNETTE OME (otitis media with effusion), left ; Myringotomy tube status; Chronic diffuse otitis externa of both ears 06/20/2024 Telephone [facility] - Urology [address] [place] [phone] Hiro Schuler PA Follow-up 06/17/2024 Telephone [facility] - Urology [address] [facility] [place] [address] Hiro Schuler PA Follow-up 06/16/2024 Telephone [facility] - Urology [address] [place] [address] Hiro Schuler PA Follow-up 06/09/2024 3:24 PM BROKE BEATER OPERATOR - 06/09/2024 11:59 PM BROKE BEATER OPERATOR Hospital Encounter [facility] LAB OP DRAW STATION [address] [place] [phone] Discharge Disposition: Home or Self Care 06/09/2024 1:30 PM BROKE BEATER OPERATOR Office Visit [facility] - GI [address] [facility] [place] [address] Germaine Renteria MD Metabolic dysfunction-associa alonzo steatotic liver disease (MASLD) (Primary Dx); Elevated liver enzymes; RUQ discomfort; Abnormal liver diagnostic imaging; BMI 40.0-44.9, adult; History of cholecystectomy; Adenomatous polyp of colon, unspecified part of colon 06/09/2024 Travel 05/17/2024 1:15 PM BROKE BEATER OPERATOR Anesthesia Event [facility] ENDOSCOPY [address] [place] [address] Antonio Hatch DO 05/17/2024 1:00 PM BROKE BEATER OPERATOR - 05/17/2024 1:45 PM BROKE BEATER OPERATOR Surgery [facility] ENDOSCOPY [address] [place] [address] Willard Tsai MD EGD 05/17/2024 11:58 AM BROKE BEATER OPERATOR - 05/17/2024 2:55 PM BROKE BEATER OPERATOR Hospital Encounter [facility] KERRIE OP [address] [place] [address] Willard Tsai MD Surgery General Discharge Disposition: Home or Self Care 05/17/2024 Travel from Last 3 Months Immunizations Immunization Administration Dates Next Due Covid Moderna primary monovalent 12+ yr 0.5mL ,11/19/2020 FLU VACCINE TRI IIV3 SPLIT IM (FLUVIRIN) 021 FLU VACCINE TRI IIV3 SPLIT PF IM (FLUVIRIN) 01/25 INFLUENZA VACCINE 01/17/2021,02/03/2018 INFLUENZA VACCINE, CELL CULT URE, QUADR. (FLUCELVAX QUADRIVALENT; 6MO+) (CCIIV4) 01/22/2023 INFLUENZA VACCINE, QUADR. (F LUZONE; FLULAVAL; FLUARIX; AFLURIA QUADRIVALENT; 6MO+), 0.5 ML (IIV4) 02/20/2022,04/24/2020 Family History Medical History Relation Name Comments Diabetes - Type 2 Brother Diabetes - Type 2 Father doesnt kno w his history Hypertension Mother Osteoporosis Mother heart issues HR goes high, BP labile Other - Cardiac Sister passes out, ?angina Relation Name Status Comments Brother Alive Father Alive Mother Alive Sister Alive Social History Tobacco Use Types Packs/Day Years Used Date Smoking Tobacco: Former Cigarettes Q uit: 04/16/2017 Smokeless Tobacco: Never Tobacco Cessation:Counseling Given: Not Answered Alcohol Use Standard Drinks/Week Comments Not Currently 0 (1 standard drink = 0.6 oz pur e alcohol) occasional; holidays Comments No Sex and Gender Information Value Date Recorded Sex Assigned at Not on file Legal Sex Female 2:04 PM CDT Gender Identity Not on file Sexual Orientation Not on file Last Filed Vital Signs Vital Sign Reading Time Taken Comments Blood Pressure 128/69 06/09/2024 1:54 PM BROKE BEATER OPERATOR Pulse 65 06/09/2024 1:54 PM BROKE BEATER OPERATOR Temperature 36.8 C (98.2 F) 06/09/2024 1:54 PM BROKE BEATER OPERATOR Respiratory Rate 14 05/17/2024 2:43 PM BROKE BEATER OPERATOR Oxygen Saturation 99% 06/09/2024 1:54 PM BROKE BEATER OPERATOR Inhaled Oxygen Concentration - - Weight 106.3 kg (234 lb 6.4 oz) 06/09/2024 1:54 PM BROKE BEATER OPERATOR Height 157.5 cm (5' 2 ) 06/09/2024 1:54 PM BROKE BEATER OPERATOR Body Mass Index 42.87 06/09/2024 1:54 PM BROKE BEATER OPERATOR Plan of Treatment Upcoming Encounters Date Type Department Care Team (Late st Contact Info) Description 08/17/2024 4:45 PM CDT Hospital Encounter [facility] - Ultrasound [address] [place] [address] Hiro Schuler PA [address] [place] [phone] 09/06/2024 3:20 PM CDT Office Visit [facility] - Urology [address] [place] [phone] Hiro Schuler PA [address] [place] [phone] 09/08/2024 12:30 PM CDT [facility] [address] [facility] [place] [address] Germaine Renteria MD [address] [facility] [address] [place] [phone] 11/10/2024 11:00 AM CDT Office Visit [facility] - GI [address] [place] [address] Health Maintenance Due Date Last Done Comments MAMMOGRAM 1982 PAP SMEAR 1982 HIV SCREENING 1997 DTAP/TDAP/TD VACCINES (1 - Tdap) 2001 HEPATITIS B VACCINE (1 of 3 - 19+ 3-dose series) 2001 COVID-19 VACCINE ( - season) 2023 12/17/2020, 11/19/2020 DEPRESSION SCREENING 04/27/2024 INFLUENZA VACCINE (Season Ended) 2024 01/22/2023, 02/20/2022, 02/15/2021, Additional history exists SCREENING FOR DIABETES 06/09/2027 , 11/23/2023, 11/23/2023, Additional history exists LIPID TESTING 11/22/2028 11/23/2023, 12/04/2021 ZOSTER VACCINE (1 of 2) 2032 HEPATITIS C SCREENING Completed 10/16/2022 , 12/21/2018, 11/26/2017 HIB VACCINE Aged Out No longer eligi ble based on patient's age to complete this topic HPV VACCINE Aged Out No longer eligi ble based on patient's age to complete this topic MENINGOCOCCAL (Group B) VACCINE SHARED DECISION-MAKING Aged Out No longer eligible based on patient's age to complete this topic MENINGOCOCCAL GROUPS A/C/Y/W VACCINE Aged Out No longer eligible based on patient's age to complete this topic PNEUMOCOCCAL VACCINE Aged Out No long er eligible based on patient's age to complete this topic Goals Goal Patient Goal Type Associated Problems Recent Progress Patient-Stated? Author Medication Management General On track( 2:11 PM BROKE BEATER OPERATOR) No Davie Ramos, RN Note: Expected end date: ongoing Interventions: Take all medications as prescribed Let your doctor know right away about any changes in your medications Make sure to request a refill of your medication at least one week prior to your last dose Safety General On track( 025 2:11 PM BROKE BEATER OPERATOR) No Leticia Wells RN Note: Expected end date: ONGOING Interventions: Keep personal items within easy reach Use some light at night in your room Keep walking paths clutter free and clear Medical Devices Implanted Type Area Branch General Manager Device Identifier Shelf Expiration Date Model / Serial / Lot Mesh Srg Ventralight St Sepra 8x6in - Sn/A Implanted:Qty: 1 on 08/28/2020 by Magan Ortiz MD at [facility] N/A: Abdomen [employer] 03/24/2022 [id number] / N/A / [id number] Description:INCISIONAL HERNI A NEAR UMBILICUS Sys Fx 37cm Cpsr Str Ss Peek Perm Hndl - Sn/A Implanted:Qty: 1 on 08/28/2020 by Magan Ortiz MD at [facility] N/A: Abdomen [employer] 04/23/2022 [id number] / N/A / [id number] Procedures Procedure Name Priority Date/Time Associated Diagnosis Comments CT ABDOMEN MULTI PHASE W CONT Routine 07/08/2024 9:42 AM CDT Metabolic dysfunction-associ ated steatotic liver disease (MASLD) CULTURE URINE Routine 06/17/2024 9:09 AM BROKE BEATER OPERATOR Dysuria SMOOTH MUSCLE ANTIBODY W REFLEX TITER Routine 06/09/2024 3:27 PM BROKE BEATER OPERATOR Metabolic dysfunction-associ ated steatotic liver disease (MASLD) IGG BLOOD Routine 06/09/2024 3:27 PM BROKE BEATER OPERATOR Metabolic dysfunction-associ ated steatotic liver disease (MASLD) CERULOPLASMIN Routine 06/09/2024 3:27 PM BROKE BEATER OPERATOR Metabolic dysfunction-associ ated steatotic liver disease (MASLD) IGA BLOOD Routine 06/09/2024 3:27 PM BROKE BEATER OPERATOR Metabolic dysfunction-associ ated steatotic liver disease (MASLD) SLA AUTOANTIBODY Routine 06/09/2024 3:27 PM BROKE BEATER OPERATOR Metabolic dysfunction-associ ated steatotic liver disease (MASLD) MICROSOMAL ANTIBODY LIVER/KIDNEY Routine 06/09/2024 3:27 PM BROKE BEATER OPERATOR Metabolic dysfunction-associ ated steatotic liver disease (MASLD) IGM BLOOD Routine 06/09/2024 3:27 PM BROKE BEATER OPERATOR Metabolic dysfunction-associ ated steatotic liver disease (MASLD) CBC W AUTO DIFFERENTIAL Routine 06/09/2024 3:27 PM BROKE BEATER OPERATOR Metabolic dysfunction-associ ated steatotic liver disease (MASLD) COMPREHENSIVE METABOLIC PANEL Routine 06/09/2024 3:27 PM BROKE BEATER OPERATOR Metabolic dysfunction-associ ated steatotic liver disease (MASLD) PT-INR [facility] Routine 06/09/2024 3:27 PM BROKE BEATER OPERATOR Metabolic dysfunction-associ ated steatotic liver disease (MASLD) ENDOSCOPY, COLON, SCREENING Routine 05/17/2024 1:26 PM BROKE BEATER OPERATOR PATHOLOGY TISSUE Routine 05/17/2024 1:21 PM BROKE BEATER OPERATOR Dyspepsia Diverticulitis Generalized abdominal pain TX COLONOSCOPY, DIAGNOSTIC 05/17/2024 1:09 PM BROKE BEATER OPERATOR Dyspepsia Diverticulitis Generalized abdominal pain Special Needs EGD and colonoscopy Received: Today Greg Becerra MD Johnson, Sarah N., RN Kami Davis! Can we schedule an EGD and colon for this lady? Thank you! Derek Guzmán Received Date Received Time May 12, 2024 11:45 AM [place] ED EGD FLEX TRANSORAL DX 05/17/2024 1:09 PM BROKE BEATER OPERATOR Dyspepsia Diverticulitis Generalized abdominal pain Special Needs EGD and colonoscopy Received: Today Greg Becerra MD Johnson, Sarah N., RN Kami Davis! Can we schedule an EGD and colon for this lady? Thank you! Derek Guzmán Received Date Received Time May 12, 2024 11:45 AM EGD Routine 05/17/2024 12:55 PM BROKE BEATER OPERATOR LIPID PROFILE Routine 11/23/2023 12:28 PM CDT Chest pain, unspecified type Prediabetes from Last 3 Months or Most Recently Relevant to Health Maintenance Results * CT Abdomen Multi Phase W Cont (07/08/2024 9:42 AM CDT) Anatomical Region Laterality Modality Abdomen Computed Tomogra phy 07/08/2024 9:50 AM CDT Impressions 07/08/2024 10:39 AM CDT Impression: 1.Hepatic steatosis. No imaging evidence of cirrhosis. 2.Subcentimeter hyperenhancing observations in segment 6 and segment 4A without washout are nonspecific. No LIRADS categorization given as no documented cirrhosis. Attention on follow-up imaging. Report dictated by Bethanie WHITTINGTON, FRCR (radiology fellow). I, Jose Hein have personally reviewed and interpreted this examination/study. > Interpreting Provider: Jose Hein on 07/08/2024 10:39 AM Narrative 07/08/2024 10:39 AM CDT PROCEDURE: CT ABDOMEN MULTI PHASE W CONT, DATE/TIME OF EXAM: 07/08/2024 9:44 AM, LOCATION [facility] INDICATION: K76.0: Metabolic dysfunction-associated steatotic liver disease (MASLD) ADDITIONAL CLINICAL INFORMATION: Ordering Provider Reason For Exam: Liver Lesion Follow up COMPARISON: CT abdomen and pelvis with contrast 10/17/2021 TECHNIQUE: CT of the abdomen was performed following the uneventful administration of 150 mL of Isovue 370 intravenous contrast according to a three-phase liver protocol. Multiplanar reconstructions and MIP images were produced. Findings: Lower Chest: Normal. Hepatobiliary system Liver morphology: No liver surface nodularity is seen to suggest hepatic cirrhosis. Hepatic steatosis. Varices: None. Spleen: Normal. Ascites: None. Focal liver observations Arterially enhancing lesion in hepatic segment 6 measuring 0.8 cm (image 108, series 5), without definite washout in the venous phase, this was not seen on CT of the abdomen from 10/17/2021. Additional arterially enhancing lesion in hepatic segment 4A measuring 0.8 cm (image 33, series 5), no washout. Hepatic vasculature Portal and hepatic veins: Normal and patent. Arterial anatomy: Conventional. Gallbladder and bile ducts Gallbladder: Normal. Bile ducts: Nondilated. Retroperitoneum Pancreas: Normal. Adrenals: Normal. Kidneys: Normal. Lymph nodes: No lymphadenopathy. Gastrointestinal: The stomach and visualized loops of large and small bowel are unremarkable. Normal appendix. Bones: Bone windows demonstrate no suspicious lytic or blastic lesions. The visible osseous structures are intact. Soft tissues: Changes of prior ventral hernia repair with ventral hernia mesh along the posterior aspect of the anterior abdominal wall. Procedure Note Jose Hein MD - 07/08/2024 PROCEDURE: CT ABDOMEN MULTI PHASE W CONT, DATE/TIME OF EXAM: 07/08/2024 9:44 AM, LOCATION [facility] INDICATION: K76.0: Metabolic dysfunction-associated steatotic liver disease (MASLD) ADDITIONAL CLINICAL INFORMATION: Ordering Provider Reason For Exam: Liver Lesion Follow up COMPARISON: CT abdomen and pelvis with contrast 10/17/2021 TECHNIQUE: CT of the abdomen was performed following the uneventful administration of 150 mL of Isovue 370 intravenous contrast according toa three-phase liver protocol. Multiplanar reconstructions and MIP imageswere produced. Findings: Lower Chest: Normal. Hepatobiliary system Liver morphology: No liver surface nodularity is seen to suggest hepatic cirrhosis. Hepatic steatosis. Varices: None. Spleen: Normal. Ascites: None. Focal liver observations Arterially enhancing lesion in hepatic segment 6 measuring 0.8 cm (image 108, series 5), without definite washout in the venous phase, this wasnot seen on CT of the abdomen from 10/17/2021. Additional arteriallyenhancing lesion in hepatic segment 4A measuring 0.8 cm (image 33, series 5), no washout. Hepatic vasculature Portal and hepatic veins: Normal and patent. Arterial anatomy: Conventional. Gallbladder and bile ducts Gallbladder: Normal. Bile ducts: Nondilated. Retroperitoneum Pancreas: Normal. Adrenals: Normal. Kidneys: Normal. Lymph nodes: No lymphadenopathy. Gastrointestinal: The stomach and visualized loops of large and small bowel areunremarkable. Normal appendix. Bones: Bone windows demonstrate no suspicious lytic or blastic lesions. The visible osseous structures are intact. Soft tissues: Changes of prior ventral hernia repair with ventral hernia mesh alongthe posterior aspect of the anterior abdominal wall. Impression: 1.Hepatic steatosis. No imaging evidence of cirrhosis. 2.Subcentimeter hyperenhancing observations in segment 6 and segment 4A without washout are nonspecific. No LIRADS categorization given as no documented cirrhosis. Attention on follow-up imaging. Report dictated by Bethanie [facility], [facility] (radiology fellow). I, Jose Hein have personally reviewed and interpreted this examination/study. > Interpreting Provider: Jose Hein on 07/08/2024 10:39 AM Germaine Renteria MD CT ORDERABLES Final Result * (ABNORMAL) CULTURE URINE (06/17/2024 9:09 AM BROKE BEATER OPERATOR) Culture (A) [facility] Comment: CULTURE, URINE, ROUTINE Micro Number: [id number] Test Status: Final Specimen Source: Urine Specimen Quality: Adequate Result: 50,000-100,000 CFU/mL of Coagulase negative staphylococcus, not S. saprophyticus May represent colonizers from external and internal genitalia. No further testing (including susceptibility) will be performed. Test Performed at: [facility] [id number] REILLY AHUMADA MD Urine URINE SPECIMEN OBTAINED BY CLEAN CATCH PROCEDURE / Unknown 06/17/2024 9:09 AM BROKE BEATER OPERATOR 06/17/2024 9:09 AM BROKE BEATER OPERATOR Hiro Coates LAB - MICROBIOLOGY ORDERABLES Fi nal Result [address] [id number] [place] [address] * PT-INR [facility] (06/09/2024 3:27 PM BROKE BEATER OPERATOR) PT 13.0 12.1 - 14.8 Seconds 06/09/2024 4:43 PM BROKE BEATER OPERATOR [facility] LABORATORY [facility] INR 1.0 See Comment 06/09/2024 4:43 PM BROKE BEATER OPERATOR [facility] Comment:The suggested therap eutic range for standard coumadin (warfarin) therapy is an INR of 2.0-3.0. For high-risk patients (Mechanical Mitral Valve Prosthesis, etc.), the suggested prophylactic therapeutic range is an INR of 2.5-3.5. Blood BLOOD SPECIMEN / Unknown Lab Venipuncture / Unknown 06/09/2024 3:27 PM BROKE BEATER OPERATOR 06/09/2024 3:51 PM BROKE BEATER OPERATOR Germaine Renetria MD LAB - COAGULATION ORDERABLES Fin al Result Performing Organization Address City/[facility]/ZIP Co de Phone Number [facility] [address] [place] [address], [facility] [phone] * SOLUBLE LIVER ANTIGEN (SLA) ANTIBODY (06/09/2024 3:27 PM BROKE BEATER OPERATOR) Soluable Liver Antigen Antibody IgG 1.0 0.0 - 24.9 U 06/12/2024 11:47 PM BROKE BEATER OPERATOR [employer] [facility] ([facility]) Comment: REFERENCE INTERVAL: Soluble Liver Antigen Antibody, IgG 0.0 - 20.0 U ........... Negative 20.1 - 24.9 U ........... Equivocal 25.0 U or greater ....... Positive The presence of SLA antibodies has almost 100% specificity for autoimmune hepatitis, although only 12-30% have these antibodies. Thus, a negative SLA IgG test does not rule out autoimmune hepatitis. Performed by [email or web address], [address] [place] [address],[place] [address] [email or web address], Nghia Mcgrath MD, Lab. Director CLIA Number: [id number] Blood BLOOD SPECIMEN / Unknown Lab Venipuncture / Unknown 06/09/2024 3:27 PM BROKE BEATER OPERATOR 06/09/2024 3:51 PM BROKE BEATER OPERATOR us Germaine Renteria MD LAB - SEROLOGY ORDERABLES Final Result Performing Organization Address City/[facility]/ZIP Co de Phone Number [facility]) [address] * SMOOTH MUSCLE ANTIBODY W REFLEX TITER (06/09/2024 3:27 PM BROKE BEATER OPERATOR) F-Actin Antibody IgG 15 0 - 19 Units 06/11/2024 7:31 AM BROKE BEATER OPERATOR [employer] ([facility]) Comment: If F-Actin (Smooth Muscle) Antibody, IgG is negative, the Smooth Muscle Antibody titer by IFA is not performed. REFERENCE INTERVAL: F-Actin (Smooth Muscle) Antibody, IgG by LANCE 19 Units or less ....... Negative 20 - 30 Units .......... Weak Positive-Suggest repeat testing in two to three weeks with fresh specimen. 31 Units or greater..... Positive-Suggestive of autoimmune hepatitis type 1 or chronic active hepatitis. F-actin IgG antibodies have been shown to have increased sensitivity for autoimmune hepatitis (AIH) but lower specificity than smooth muscle antibodies (SMA). F-actin IgG antibodies can also be seen in SMA-negative disease controls (non-AIH), especially in patients with primary biliary cirrhosis and chronic hepatitis C infections. Some patients with AIH may be SMA-positive but negative for F-actin IgG. Consider testing for SMA by IFA if suspicion for AIH is strong. Performed By: [email or web address] [address] [place] [address] Legal Assistant: Alvin Son MD, PhD CLIA Number: [id number] Blood BLOOD SPECIMEN / Unknown Lab Venipuncture / Unknown 06/09/2024 3:27 PM BROKE BEATER OPERATOR 06/09/2024 3:50 PM BROKE BEATER OPERATOR Germaine Renteria MD LAB - SEROLOGY ORDERABLES Final Result Performing Organization Address City/[facility]/ZIP Co de Phone Number [employer] ([facility]) [address] * MICROSOMAL ANTIBODY LIVER/KIDNEY (06/09/2024 3:27 PM BROKE BEATER OPERATOR) Liver/Kidney Microsomal Antibody IgG <1:20 <1:20 06/11/2024 7:53 PM BROKE BEATER OPERATOR [facility] ([facility]) Comment: INTERPRETIVE INFORMATION: Nfysj-Wgjuyt-Eoyywgqff Abs, IgG Liver-Kidney Microsome IgG antibody (anti-LKM), as detected by indirect immunofluorescent antibody (IFA) techniques, may be observed in patients with autoimmune hepatitis type 2 (AIH-2), AIH-2 associated with autoimmune stiwdophezujbvxhvp-ivgsxelwogo-utanvhhtgt dystrophy (APECED), viral hepatitis C or D, and some forms of drug-induced hepatitis. This IFA does not differentiate among the four types of LKM antibodies (LKM-1, LKM-2, LKM-3, and a fourth type that recognizes CY and CY antigens). Of these, anti-LKM-1 (cytochrome [id number]) IgG antibodies are considered specific for AIH-2. This test was developed and its performance characteristics determined by [email or web address]. It has not been cleared or approved by the US Food and Drug Administration. This test was performed in a CLIA certified laboratory and is intended for clinical purposes. Performed By: [email or web address] [address] [place] [address] Legal Assistant: Alvin Son MD, PhD CLIA Number: [id number] Blood BLOOD SPECIMEN / Unknown Lab Venipuncture / Unknown 06/09/2024 3:27 PM BROKE BEATER OPERATOR 06/09/2024 3:51 PM BROKE BEATER OPERATOR Germaine Renteria MD LAB - CHEMISTRY ORDERABLES Final Result [facility]) [address] * CERULOPLASMIN (06/09/2024 3:27 PM BROKE BEATER OPERATOR) Ceruloplasmin 40 20 - 60 mg/dL 06/09/2024 4:20 PM BROKE BEATER OPERATOR [facility] Blood BLOOD SPECIMEN / Unknown Lab Venipuncture / Unknown 06/09/2024 3:27 PM BROKE BEATER OPERATOR 06/09/2024 3:51 PM BROKE BEATER OPERATOR Germaine Renteria MD LAB - CHEMISTRY ORDERABLES Final Result [facility] [address] [place] [address], [facility] [phone] * (ABNORMAL) CBC WITH DIFFERENTIAL (06/09/2024 3:27 PM BROKE BEATER OPERATOR) WBC 7.0 4.0 - 10.7 x10E9/L 06/09/2024 4:10 PM [facility] RBC Count 4.88 3.90 - 5.20 x10E12/L 06/09/2024 4:10 PM [facility] Hemoglobin 12.8 11.9 - 15.8 g/dL 06/09/2024 4:10 PM [facility] Hematocrit 39.2 34.8 - 46.1 % 06/09/2024 4:10 PM [facility] MCV 80.3 80.0 - 98.0 fL 06/09/2024 4:10 PM [facility] MCH 26.2(L) 26.7 - 33.6 pg 06/09/2024 4:10 PM [facility] MCHC 32.7 31.7 - 36.3 g/dL 06/09/2024 4:10 PM [facility] RDW-CV 13.6 11.3 - 14.8 % 06/09/2024 4:10 PM [facility] Platelet Count 341 150 - 420 x10E9/L 06/09/2024 4:10 PM [facility] MPV 10.6 7.8 - 11.4 fL 06/09/2024 4:10 PM [facility] Neutrophil % 68.2 41.0 - 74.0 % 06/09/2024 4:10 PM [facility] Lymphocyte % 24.4 17.0 - 47.0 % 06/09/2024 4:10 PM [facility] Monocyte % 5.3 3.0 - 11.0 % 06/09/2024 4:10 PM [facility] Eosinophil % 1.9 0.0 - 7.0 % 06/09/2024 4:10 PM [facility] Basophil % 0.1 0.0 - 1.6 % 06/09/2024 4:10 PM [facility] Immature Granulocytes % 0.1 0.0 - 1.0 % 06/09/2024 4:10 PM [facility] Neutrophil Absolute 4.75 1.60 - 7.50 x10E9/L 06/09/2024 4:10 PM [facility] Lymphocyte Absolute 1.70 1.00 - 4.40 x10E9/L 06/09/2024 4:10 PM [facility] Monocyte Absolute 0.37 0.15 - 1.00 x10E9/L 06/09/2024 4:10 PM [facility] Eosinophil Absolute 0.13 0.00 - 0.60 x10E9/L 06/09/2024 4:10 PM [facility] Basophil Absolute 0.01 0.00 - 0.13 x10E9/L 06/09/2024 4:10 PM [facility] Blood BLOOD SPECIMEN / Unknown Lab Venipuncture / Unknown 06/09/2024 3:27 PM BROKE BEATER OPERATOR 06/09/2024 3:59 PM [facility] us Wing-Kin Myra BOYER LAB - HEMATOLOGY ORDERABLES Lizz l Result Performing Organization Address City/State/[facility] Co de Phone Number [facility] [address] [place] [address], [facility] [phone] * (ABNORMAL) COMPREHENSIVE METABOLIC PANEL (06/09/2024 3:27 PM BROKE BEATER OPERATOR) BUN 15 7 - 26 mg/dL 06/09/2024 4:25 PM [facility] Creatinine 0.70 0.56 - 0.96 mg/dL 06/09/2024 4:25 PM [facility] Sodium 141 136 - 145 mmol/L 06/09/2024 4:25 PM [facility] Potassium 3.8 3.5 - 4.5 mmol/L 06/09/2024 4:25 PM [facility] Chloride 107 98 - 107 mmol/L 06/09/2024 4:25 PM [facility] CO2 25 22 - 29 mmol/L 06/09/2024 4:25 PM [facility] Glucose 90 70 - 99 mg/dL 06/09/2024 4:25 PM [facility] Calcium 9.6 8.4 - 10.2 mg/dL 06/09/2024 4:25 PM [facility] Protein Total 7.6 6.0 - 8.3 g/dL 06/09/2024 4:25 PM [facility] Albumin 4.1 3.4 - 5.0 g/dL 06/09/2024 4:25 PM [facility] Bilirubin Total 0.4 0.2 - 1.2 mg/dL 06/09/2024 4:25 PM [facility] Alkaline Phosphatase 149 40 - 150 U/L 06/09/2024 4:25 PM [facility] ALT 77(H) 5 - 55 U/L 06/09/2024 4:25 PM [facility] AST 53(H) 5 - 34 U/L 06/09/2024 4:25 PM [facility] Anion Gap 9 6 - 16 06/09/2024 4:25 PM [facility] BUN/Creatinine Ratio 21 7 - 23 06/09/2024 4:25 PM [facility] Osmolality Calculated 292 275 - 295 mOsm/kg 06/09/2024 4:25 PM [facility] Albumin/Globulin Ratio 1.2 1.1 - 2.3 06/09/2024 4:25 PM [facility] eGFR by CKD-EPI >90 >=90 mL/min/1.7 3 m2 06/09/2024 4:25 PM [facility] Blood BLOOD SPECIMEN / Unknown Lab Venipuncture / Unknown 06/09/2024 3:27 PM BROKE BEATER OPERATOR 06/09/2024 4:00 PM [facility] Wing-Kin Myra BOYER LAB - CHEMISTRY ORDERABLES Final Result [facility] [address] [place] [address], [place] [phone] * IGM BLOOD (06/09/2024 3:27 PM BROKE BEATER OPERATOR) IgM 123 37 - 286 mg/dL 06/09/2024 4:19 PM BROKE BEATER OPERATOR [facility] Blood BLOOD SPECIMEN / Unknown Lab Venipuncture / Unknown 06/09/2024 3:27 PM BROKE BEATER OPERATOR 06/09/2024 3:51 PM BROKE BEATER OPERATOR us Germaine Renteria MD LAB - CHEMISTRY ORDERABLES Final Result [address] [address], [place] [phone] * IGG BLOOD (06/09/2024 3:27 PM BROKE BEATER OPERATOR) Pathologist [facility] IgG 1,273 767 - 1,590 mg/dL 06/09/2024 4:19 PM BROKE BEATER OPERATOR [facility] Blood BLOOD SPECIMEN / Unknown Lab Venipuncture / Unknown 06/09/2024 3:27 PM BROKE BEATER OPERATOR 06/09/2024 3:51 PM BROKE BEATER OPERATOR us Germaine Renteria MD LAB - CHEMISTRY ORDERABLES Final Result Performing Organization Address City/[facility]/ZIP Co de Phone Number [address] [address], [place] [phone] * IGA BLOOD (06/09/2024 3:27 PM BROKE BEATER OPERATOR) IgA 313 61 - 356 mg/dL 06/09/2024 4:19 PM BROKE BEATER OPERATOR [facility] Blood BLOOD SPECIMEN / Unknown Lab Venipuncture / Unknown 06/09/2024 3:27 PM BROKE BEATER OPERATOR 06/09/2024 3:51 PM BROKE BEATER OPERATOR us Germaine Renteria MD LAB - CHEMISTRY ORDERABLES Final Result Performing Organization Address City/[facility]/ZIP Co de Phone Number [address] [address], [place] [phone] * ENDOSCOPY, COLON, SCREENING (05/17/2024 1:26 PM BROKE BEATER OPERATOR) Report Endoscopy POC Endoscopy Department Report _ Patient Name: Eesquiel Jones Procedure Date: 05/17/2024 1:26 PM Date of : 1980 Classification: Outpatient Gender: Female Ethnicity: or Race: White _ Providers: Willard Tsai MD Referring MD: Jean Carlos Covarrubias (Referring MD) Procedure: Colonoscopy Indications: High risk colon cancer surveillance: Personal history of colonic polyps Medications: Monitored Anesthesia Care Description of Procedure: Pre-Anesthesia Assessment: - Prior to the procedure, a History and Physical was performed, and patient medications and allergies were reviewed. The patient's tolerance of previous anesthesia was also reviewed. The risks and benefits of the procedure and the sedation options and risks were discussed with the patient. All questions were answered, and informed consent was obtained. Prior Anticoagulants: The patient has taken no anticoagulant or antiplatelet agents. ASA Grade Assessment: II - A patient with mild systemic disease. After reviewing the risks and benefits, the patient was deemed in satisfactory condition to undergo the procedure. - Prior to the procedure, a History and Physical was performed, and patient medications and allergies were reviewed. The patient's tolerance of previous anesthesia was also reviewed. The risks and benefits of the procedure and the sedation options and risks were discussed with the patient. All questions were answered, and informed consent was obtained. Prior Anticoagulants: The patient has taken no anticoagulant or antiplatelet agents. ASA Grade Assessment: II - A patient with mild systemic disease. After reviewing the risks and benefits, the patient was deemed in satisfactory condition to undergo the procedure. After I obtained informed consent, the scope was passed under direct vision. Throughout the procedure, the patient's blood pressure, pulse, and oxygen saturations were monitored continuously. The Colonoscope was introduced through the anus and advanced to the cecum, identified by appendiceal orifice and ileocecal valve. The colonoscopy was performed without difficulty. The patient tolerated the procedure well. The quality of the bowel preparation was good. The ileocecal valve, appendiceal orifice, and rectum were photographed. Findings: A 3 mm polyp was found in the cecum. The polyp was sessile. The polyp was removed with a cold snare. Resection and retrieval were complete. A 3 mm polyp was found in the ascending colon. The polyp was sessile. The polyp was removed with a cold snare. Resection was complete, but the polyp tissue was not retrieved. Two sessile polyps were found in the descending colon. The polyps were 3 to 4 mm in size. These polyps were removed with a cold snare. Resection and retrieval were complete. Multiple small and large-mouthed diverticula were found in the sigmoid colon. The exam was otherwise without abnormality on direct and retroflexion views. Estimated Blood Loss: Estimated blood loss: none. Complications: No immediate complications. Impression: - One 3 mm polyp in the cecum, removed with a cold snare. Resected and retrieved. - One 3 mm polyp in the ascending colon, removed with a cold snare. Complete resection. Polyp tissue not retrieved. - Two 3 to 4 mm polyps in the descending colon, removed with a cold snare. Resected and retrieved. - Diverticulosis in the sigmoid colon. - The examination was otherwise normal on direct and retroflexion views. Recommendation: - Discharge patient to home. - Resume previous diet. - Continue present medications. - Await pathology results. - Repeat colonoscopy in 5 years for surveillance. - Patient has a contact number available for emergencies. The signs and symptoms of potential delayed complications were discussed with the patient. Return to normal activities tomorrow. Written discharge instructions were provided to the patient. Procedure Code(s): --- Professional --- 87236, Colonoscopy, flexible; with removal of tumor(s), polyp(s), or other lesion(s) by snare technique Diagnosis Code(s): --- Professional --- Z86.010, Personal history of colonic polyps D12.0, Benign neoplasm of cecum D12.2, Benign neoplasm of ascending colon D12.4, Benign neoplasm of descending colon K57.30, Diverticulosis of large intestine without perforation or abscess without bleeding CPT copyright 2021 [employer]. All rights reserved. The codes documented in this report are preliminary and upon certified medical aide review may be revised to meet current compliance requirements. Willard Tsai MD 05/17/2024 2:02:10 PM This report has been signed electronically. Note Initiated On: 05/17/2024 1:26 PM Number of Addenda: 0 [facility] [address] [place], [place] [address] [place] [address] PROVATION 05/17/2024 1:26 PM BROKE BEATER OPERATOR us Willard Tsai MD GI PROCEDURE ORDERABLES Edited Result - Final [facility] PROVATION * PATHOLOGY TISSUE (05/17/2024 1:21 PM BROKE BEATER OPERATOR) Case Report Surgical Pathology Report Case: [id number] Authorizing Provider: Willard Tsai MD Collected: 05/17/2024 01:21 PM Ordering Location: [facility] ENDOSCOPY Received: 05/17/2024 03:02 PM Pathologist: Elaine Case MD Specimens: A) - Gastric, Gastric Bx /ro H Pylori B) - Esophagus, Distal Esophageal Bx r/o EOE C) - Esophagus, Proximal Esophagus Bx r/o EOE D) - Polyp Cecum, Cecal Polyp x 1 E) - Polyp Descending, Descending Colon Polyps x 2 05/18/2024 1:05 PM BROKE BEATER OPERATOR [facility] Final Diagnosis Stomach, biopsy (A): - No histopathologic abnormality - No active inflammation or H. pylori organisms (H&E examination) Esophagus, distal, biopsy (B): - No histopathologic abnormality - No increase in intraepithelial eosinophils Esophagus, proximal, biopsy (C): - No histopathologic abnormality - No increase in intraepithelial eosinophils Large intestine, cecal polyp x 1, biopsy (D): - Tubular adenoma Large intestine, descending colon polyps x 2, biopsy (E): - Prominent mucosal lymphoid aggregates 05/18/2024 1:05 PM BROKE BEATER OPERATOR [facility] Microscopic Description and Comment Microscopic examination substantiates the final diagnosis. 05/18/2024 1:05 PM [facility] Clinical History The patient is a 43-year-old woman with dyspepsia and dysphagia who also presents for high risk colon cancer surveillance (personal history of colonic polyps. Operative procedure/findings: EGD - LA grade a esophagitis without bleeding, biopsies taken to evaluate for eosinophilic esophagitis; normal stomach, biopsy to rule out H. pylori. Colonoscopy - 3 mm cecal polyp, and two 3-4 mm descending colon polyps, resected and retrieved 05/18/2024 1:05 PM [facility] Gross Description The requisition and specimen(s) are identified with the patient's name Esequiel Jones . Received in formalin, specimen A , consists of 2 barton-white tissue fragments, 0.2 x 0.1 x 0.1 cm and 0.3 x 0.2 x 0.1 cm, submitted in toto in cassette A1. Received in formalin, specimen B , consists of 2 pink-white tissue fragments, 0.2 x 0.2 x 0.1 cm and 0.3 x 0.2 x 0.1 cm, submitted in toto in cassette B1. Received in formalin, specimen C , consists of 2 barton-white tissue fragments, each 0.4 x 0.1 x 0.1 cm, submitted in toto in cassette C1. Received in formalin, specimen D , consists of 2 yellow-barton tissue fragments, 0.5 x 0.3 x 0.1 cm and 0.6 x 0.3 x 0.2 cm, submitted in toto in cassette D1. Received in formalin, specimen E , consists of 4 pink-barton tissue fragments admixed with digestive material, 0.4-1.4 cm and 0.9 x 0.7 x 0.2 cm in aggregate, submitted in toto in cassette E1./IRENA 05/18/2024 1:05 PM [facility] Pathologist Location at [facility] 05/18/2024 1:05 PM [facility] Disclaimer The performance characteristics of all immunohistochemical and indirect immunofluorescence stains (if any) cited in this report were determined by the Histopathology Laboratory of [facility]. Some of these tests were developed by our own laboratory and have not been cleared or approved by the US Food and Drug Administration. The FDA does not require this test to go through premarket FDA review. These tests are used for clinical purposes. They should not be regarded as investigational or for research. This laboratory is certified under the Clinical Laboratory Improvement Amendments (CLIA) as qualified to perform high complexity clinical laboratory testing. This case has been personally reviewed and interpreted by the attending (teaching) pathologist. 05/18/2024 1:05 PM BROKE BEATER OPERATOR [facility] Embedded Images 05/18/2024 1:05 PM BROKE BEATER OPERATOR [facility] Biopsy, NOS GASTRIC CONTENTS SPECIMEN / Unknown 05/17/2024 1:21 PM BROKE BEATER OPERATOR 05/17/2024 3:02 PM BROKE BEATER OPERATOR Biopsy, NOS REGION OF ESOPHAGUS / Unknown 05/17/2024 1:21 PM BROKE BEATER OPERATOR 05/17/2024 3:02 PM BROKE BEATER OPERATOR Biopsy, NOS REGION OF ESOPHAGUS / Unknown 05/17/2024 1:24 PM BROKE BEATER OPERATOR 05/17/2024 3:02 PM BROKE BEATER OPERATOR Biopsy, NOS POLYP OF CECUM / Unknown 05/17/2024 1:35 PM BROKE BEATER OPERATOR 05/17/2024 3:02 PM BROKE BEATER OPERATOR Biopsy, NOS POLYP / Unknown 05/17/2024 1 :47 PM BROKE BEATER OPERATOR 05/17/2024 3:02 PM BROKE BEATER OPERATOR Willard Tsai MD LAB - PATHOLOGY/CYTOLOGY ORDERA BLES Final Result Performing Organization Address City/State/[facility] Co de Phone Number [facility] [address] [place] [address], [facility] [phone] * EGD (05/17/2024 12:55 PM BROKE BEATER OPERATOR) Report Endoscopy POC Endoscopy Department Report _ Patient Name: Esequiel Jonse Procedure Date: 05/17/2024 12:55 PM Date of : 1980 Classification: Outpatient Gender: Female Ethnicity: or Race: White _ Providers: Willard Tsai MD Referring MD: Jean Carlos Covarrubias (Referring MD), Toan Friedman MD Procedure: Upper GI endoscopy Indications: Dyspepsia, Dysphagia Medications: Monitored Anesthesia Care Description of Procedure: Pre-Anesthesia Assessment: - Prior to the procedure, a History and Physical was performed, and patient medications and allergies were reviewed. The patient's tolerance of previous anesthesia was also reviewed. The risks and benefits of the procedure and the sedation options and risks were discussed with the patient. All questions were answered, and informed consent was obtained. Prior Anticoagulants: The patient has taken no anticoagulant or antiplatelet agents. ASA Grade Assessment: II - A patient with mild systemic disease. After reviewing the risks and benefits, the patient was deemed in satisfactory condition to undergo the procedure. After obtaining informed consent, the endoscope was passed under direct vision. Throughout the procedure, the patient's blood pressure, pulse, and oxygen saturations were monitored continuously. The Endoscope was introduced through the mouth, and advanced to the second part of duodenum. The upper GI endoscopy was accomplished without difficulty. The patient tolerated the procedure well. Findings: LA Grade A (one or more mucosal breaks less than 5 mm, not extending between tops of 2 mucosal folds) esophagitis with no bleeding was found in the distal esophagus. Biopsies were obtained from the proximal and distal esophagus with cold forceps for histology of suspected eosinophilic esophagitis. The entire examined stomach was normal. Biopsies were taken with a cold forceps for histology. The first portion of the duodenum and second portion of the duodenum were normal. Estimated Blood Loss: Estimated blood loss: none. Complications: No immediate complications. Impression: - LA Grade A esophagitis with no bleeding. - Normal stomach. Biopsied. - Normal first portion of the duodenum and second portion of the duodenum. - Biopsies were taken with a cold forceps for evaluation of eosinophilic esophagitis. Recommendation: - Discharge patient to home. - Resume previous diet. - Continue present medications. - Await pathology results. - Return to referring physician as previously scheduled. - Patient has a contact number available for emergencies. The signs and symptoms of potential delayed complications were discussed with the patient. Return to normal activities tomorrow. Written discharge instructions were provided to the patient. Procedure Code(s): --- Professional --- 97507, Esophagogastroduo denoscopy, flexible, transoral; with biopsy, single or multiple Diagnosis Code(s): --- Professional --- K20.90, Esophagitis, unspecified without bleeding R10.13, Epigastric pain R13.10, Dysphagia, unspecified CPT copyright 2021 [employer]. All rights reserved. The codes documented in this report are preliminary and upon certified medical aide review may be revised to meet current compliance requirements. Willard Tsai MD 05/17/2024 1:54:59 PM This report has been signed electronically. Note Initiated On: 05/17/2024 12:55 PM Number of Addenda: [address] PROVATION 05/17/2024 12:5 5 PM BROKE BEATER OPERATOR us Willard Tsai MD GI PROCEDURE ORDERABLES Edited Result - Final [facility] PROVATION * LIPID PROFILE (11/23/2023 12:28 PM CDT) Cholesterol Total 139 <200 mg/dL 11/23/2023 2:29 PM CDT [facility] LABORATORY [facility] HDL 51 >40 mg/dL 11/23/2023 2:29 PM [facility] Comment: ATP III Classification of HDL Cholesterol: <40 mg/dL: Considered a major risk factor. >60 mg/dL: Considered a negative risk factor. LDL Calculated 66 <100 mg/dL 11/23/2023 2:29 PM T [facility] Comment: ATP III Classification of LDL Cholesterol: <100 mg/dL: Optimal 100 - 129 mg/dL: Near Optimal/Above Optimal 130 - 159 mg/dL: Borderline High 160 - 189 mg/dL: High >190 mg/dL: Very High Triglycerides 112 <150 mg/dL 11/23/2023 2:29 PM CDT [facility] Comment: ATP III Classification of Triglycerides: <150 mg/dL: Normal 150 - 199 mg/dL: Borderline High 200 - 400 mg/dL: High >500 mg/dL: Very High Blood BLOOD SPECIMEN / Unknown Lab Venipuncture / Unknown 11/23/2023 12:28 PM CDT 11/23/2023 1:12 PM CDT Galdino Reynoso APRN-[facility] - CHEMISTRY ORDE ED Final Result [facility] [address] [place] [address], [facility] [phone] from Last 3 Months or Most Recently Relevant to Health Maintenance Insurance [facility] Address: [facility] [id number] [place] [phone] Advance Directives * Full Code (Latest Code Status on File) Date Activated Date Inactivated Comments 08/28/2020 10:32 AM 08/29/2020 4:37 PM * Full Code Date Activated Date Inactivated Comments 10/04/2018 3:46 PM 10/07/2018 5:15 PM Care Teams Breeding Manager Relationship Specialty Start Date End Date Jean Carlos Covarrubias MD [address] [place] [address] PCP - General Family Medicine 04/22/23
== END 2024-08-15 15:10 | disposition home or self-care (01) ==
LOC: CHSLAB 15:12
PROVIDERS: PCP Family Medicine; Visit Provider Family Medicine
DX: R10.9 Unspecified abdominal pain (principal); E61.2 Magnesium deficiency
CPT/HCPCS: 36415; 74019; 80053; 82150; 83690; 83735; 85025

== ENCOUNTER 2024-08-18 15:32 | Outpatient (CLI) | payer BC, SELFPAY ==
--- NOTE | ~2024-08-18 | CT_ITS ---
CLINICAL INDICATION: Right upper quadrant pain and fever COMPARISON: 03/07/2024. TECHNIQUE: Multiple contiguous axial images of the abdomen and pelvis were performed without the admi nistration of intravenous contrast The dose-length product (DLP) was 1201.46 mGy-cm. Automated exposure control and iterative reconstruction technique were employed. FINDINGS/OBSERVATIONS: Visualized lower thorax: The bilateral lung bases are clear. The heart is of normal size, without pericardial effusion. Small hiatal hernia is present. Liver: The liver demonstrates homogeneous attenuation and is enlarged measuring 19 cm in longitudinal dimens ion. Gallbladder and biliary system: The gallbladder is surgically absent. Pancreas: Limited evaluation of the pancreas secondary to the lack of intravenous contrast. Spleen: The spleen demonstrates homogeneous attenuation and is enlarged measuring 13 cm in longitudinal dimen jayna. Kidneys: The bilateral kidneys are unremarkable, without hydronephrosis or renal calculi. Adrenal glands: Unremarkable. Gastrointestinal tract: Colonic diverticulosis without surrounding inflammatory change. Diverticulosis is most severe within the distal colon. Appendix: Surgically absent. Vasculature: Unremarkable. Lymph nodes: No pathologically enlarged or morphologically suspicious lymph nodes within the retroperitoneum or at the root of the mesentery. Pelvic structures: The bladder is only minimally distended, and otherwise unremarkable. The uterus is either surgically absent or markedly atrophic. Body wall and musculoskeletal: Findings suggesting prior hernia repair along the anterior abdominal wall No significant degenerative disease within the lower thoracic or lumbosacral spine. IMPRESSION: Hepatosplenomegaly. Colonic diverticulosis without surrounding inflammatory change. Remainder of the examination is otherwise unremarkable. Reviewed, dictated and finalized at location A.
--- OUTSIDE RECORDS SUMMARY | 2024-08-18 16:51 | XMS_ITS | Encounter Summary ---
Author Organization [facility] Address [address] [place], [place] [address] [address] Care Team Providers Care Regulatory Technician Name Role Phone Jean Carlos Covarrubias MD Primary Care Provider [phone] Jean Carlos Covarrubias MD Primary Care Provider [phone] Reason for Visit * Reason Onset Date Comments Scheduling 09/13/2020 [facility] Echo Order Information Change 09/13/2020 Encounter Details Date Type Department Care Team (Late st Contact Info) Description 09/13/2020 Telephone [place] [id number] [place] [address] Cee Desai Scheduling (omelett.es Echo); Order Information Change Social History Tobacco [...] PM CDT Re: PROC ECHO EXERCISE STRESS [[id number]] Please change this order to [id number] To be compatible with [facility] Scheduling... Also place Covid Test, in case patient needs it.. This is required prior to Echo.. Thanks! documented in this encounter Plan of Treatment Upcoming Encounters Date Type Department Care Team (Late st Contact Info) Description 09/06/2024 3:20 PM CDT Office Visit [facility] Urology [address] [place] [address] Hiro Schuler PA [address] [place] [address] 09/08/2024 12:30 PM CDT Office Visit [facility] GI [address] [facility], [place] [address] Germaine Renteria MD [address] [facility] [address] [place] [address] 11/10/2024 11:00 AM CDT [facility] - [address] [address] documented as of this encounter Goals Goal Patient Goal Type Associated Problems Recent Progress Patient-Stated? Author Medication Management General On track( 025 2:11 PM MOTOR EQUIPMENT CAPTAIN) Davie Lujan, RN Note: Expected end date: ongoing Interventions: Take all medications as prescribed Let your doctor know right away about any changes in your medications Make sure to request a refill of your medication at least one week prior to your last dose documented as of this encounter Visit Diagnoses Not on filedocumented in this encounter Care Teams Regulatory Technician Relationship Specialty Start Date End Date Jean Carlos Covarrubias MD [address] [place] [address] PCP - General 02/12/18 04/21/23 Jean Carlos Covarrubias MD [address] [place] [address] PCP - General Family Medicine 04/22/23 documented as of this encounter
--- OUTSIDE RECORDS SUMMARY | 2024-08-18 16:51 | XMS_ITS | Encounter Summary ---
Author Organization [facility] Address [address] [place], [place] [address] [address] Care Team Providers Care Boat Hoist Operator Helper Name Role Phone Jean Carlos Covarrubias MD Primary Care Provider [phone] Jean Carlos Covarrubias MD Primary Care Provider [phone] Encounter Details Date Type Department Care Team (Late st Contact Info) Description 08/16/2020 Telephone [facility] [address] [place] [address] Magan Ortiz MD [address] [phone] Social History Tobacco Use Types Packs/Day Years [...] Description 09/06/2024 3:20 PM CDT Office Visit [facility] [address] [place] [address] Hiro Schuler PA [address] [place] [address] 09/08/2024 12:30 PM CDT Office Visit [facility] GI [address] [place] [address] Germaine Renteria MD [address] [place] [address] 11/10/2024 11:00 AM CDT Office Visit [facility] GI [address] [place] [address] documented as of this encounter Goals Goal Patient Goal Type Associated Problems Recent Progress Patient-Stated? Author Medication Management General On track( 025 2:11 PM MANAGER MARKETING) Davie Lujan RN Note: Expected end date: ongoing Interventions: Take all medications as prescribed Let your doctor know right away about any changes in your medications Make sure to request a refill of your medication at least one week prior to your last dose documented as of this encounter Visit Diagnoses Not on filedocumented in this encounter Care Teams Boat Hoist Operator Helper Relationship Specialty Start Date End Date Jean Carlos Covarrubias MD [address] [place] [address] PCP - General 02/12/18 04/21/23 Jean Carlos Covarrubias MD [address] [place] [address] PCP - General Family Medicine 04/22/23 documented as of this encounter
--- OUTSIDE RECORDS SUMMARY | 2024-08-18 16:51 | XMS_ITS | Encounter Summary ---
Author Organization [facility] Address [facility] [place] [address] Care Team Providers Care Microstrategy Architect Name Role Phone Jean Carlos Covarrubias MD Primary Care Provider [phone] Jean Carlos Covarrubias MD Primary Care Provider [phone] Encounter Details Date Type Department Care Team (Late Contact Info) Description 02/08/2018 Telephone [facility] [address] [place] [address] Felice Torres Jr., MD [facility] [address] [facility] [address] [place] [address] Social History Tobacco Use Types Packs/Day Years [...] Upcoming Encounters Date Type Department Care Team ([facility] Contact Info) Description 09/06/2024 3:20 PM CDT Office Visit [facility] - Urology [address] [place] [address] Hiro Schuler PA [address] [place] [address] 09/08/2024 12:30 PM CDT Office Visit [facility] GI [address] [facility], [place] [address] Germaine Renteria MD [address] [facility] [address] [place] [address] 11/10/2024 11:00 AM CDT Office Visit [facility] GI [address] [facility], [place] [address] documented as of this encounter Visit Diagnoses Not on filedocumented in this encounter Additional Health Concerns Infection Onset Date Last Indicated Resolved Time COVID-19 Under Investigation 06/08/2020 06/08/2020 06/08/2020 4:54 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
--- OUTSIDE RECORDS SUMMARY | 2024-08-18 16:51 | XMS_ITS | Encounter Summary ---
Author Organization [facility] Address [address] [place], [place] [address] [address] Care Team Providers Care Navigating Officer Name Role Phone Jean Carlos Covarrubias MD Primary Care Provider [phone] Jean Carlos Covarrubias MD Primary Care Provider [phone] Reason for Visit * Reason Onset Date Comments Question 02/04/2018 Encounter Details Date Type Department Care Team (Late st Contact Info) Description 02/04/2018 Telephone [facility] [address] [place] [address] Felice Torres Jr., MD [address] [facility] [address] [place] [address] Question Social History Tobacco Use Types Packs/Day [...] she can come in. Please advise Cb: [phone] documented in this encounter Plan of Treatment Upcoming Encounters Date Type Department Care Team (Late st Contact Info) Description 09/06/2024 3:20 PM CDT Office Visit [facility] [address] [place] [address] Hiro Schuler PA [address] [place] [phone] 09/08/2024 12:30 PM CDT Office Visit [facility] - GI [address] [place] [phone] Germaine Renteria MD [address] [facility] [address] [place] [address] 11/10/2024 11:00 AM CDT [facility] [address] [place] [address] documented as of this encounter Visit Diagnoses Not on filedocumented in this encounter Additional Health Concerns Infection Onset Date Last Indicated Resolved Time COVID-19 Under Investigation 06/08/2020 06/08/2020 06/08/2020 4:54 PM SURGICAL MANAGER documented as of this encounter Care Teams Navigating Officer Relationship Specialty Start Date End Date Jean Carlos Covarrubias MD [address] [place] [address] PCP - General 02/12/18 04/21/23 Jean Carlos Covarrubias MD [address] [place] [address] PCP - General Family Medicine 04/22/23 documented as of this encounter
--- OUTSIDE RECORDS SUMMARY | 2024-08-18 16:51 | XMS_ITS | Encounter Summary ---
Author Organization [facility] Address [address] [place], [place] [address] [address] Care Team Providers Care Prospecting Driller Helper Name Role Phone Jean Carlos Covarrubias MD Primary Care Provider [phone] Jean Carlos Covarrubias MD Primary Care Provider [phone] Encounter Details Date Type Department Care Team (Late st Contact Info) Description 08/14/2020 Telephone [facility] [address] [place] [address] Magan Ortiz MD [address] [phone] Social History Tobacco Use Types Packs/Day Years [...] Visit [facility] [address] [place] [address] Hiro Schuler PA [address] [place] [address] 09/08/2024 12:30 PM CDT Office Visit [facility] [address] [place] [address] Germaine Renteria MD [address] [place] [address] 11/10/2024 11:00 AM CDT Office Visit [facility] GI [address] [place] [address] documented as of this encounter Goals Goal Patient Goal Type Associated Problems Recent Progress Patient-Stated? Author Medication Management General On track( 025 2:11 PM ROLLER GOLD LEAF) Davie Lujan RN Note: Expected end date: ongoing Interventions: Take all medications as prescribed Let your doctor know right away about any changes in your medications Make sure to request a refill of your medication at least one week prior to your last dose documented as of this encounter Visit Diagnoses Not on filedocumented in this encounter Care Teams Prospecting Driller Helper Relationship Specialty Start Date End Date Jean Carlos Covarrubias MD [address] [place] [address] PCP - General 02/12/18 04/21/23 Jean Carlos Covarrubias MD [address] [place] [address] PCP - General Family Medicine 04/22/23 documented as of this encounter
--- OUTSIDE RECORDS SUMMARY | 2024-08-18 16:51 | XMS_ITS | Encounter Summary ---
Author Organization [facility] Address [address] [place], [place] [address] [address] Care Team Providers Care Squeak Rattle And Leak Repairer Name Role Phone Jean Carlos Covarrubias MD Primary Care Provider [phone] Jean Carlos Covarrubias MD Primary Care Provider [phone] Reason for Visit * Reason Onset Date Comments Returned Call 11/15/2018 Encounter Details Date Type Department Care Team (Late st Contact Info) Description 11/15/2018 Telephone [facility] [address] [place] [address] Felice Torres Jr., MD [address] [facility] [address] [place] [address] Returned Call Social History Tobacco Use Types [...] that she is returning a call from [facility]. She would like a call back please. She stated it was regarding her follow up with Domitila. Pt callback# [phone] documented in this encounter Plan of Treatment Upcoming Encounters Date Type Department Care Team (Late st Contact Info) Description 09/06/2024 3:20 PM CDT Office Visit [facility] [address] [place] [address] Hiro Schuler PA [address] [place] [address] 09/08/2024 12:30 PM CDT Office Visit [facility] - GI [address] [place] [address] Germaine Renteria MD [address] [place] [address] 11/10/2024 11:00 AM CDT Office Visit [facility] - GI [address] [place] [address] documented as of this encounter Visit Diagnoses Not on filedocumented in this encounter Additional Health Concerns Infection Onset Date Last Indicated Resolved Time COVID-19 Under Investigation 06/08/2020 06/08/2020 06/08/2020 4:54 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
--- OUTSIDE RECORDS SUMMARY | 2024-08-18 16:52 | XMS_ITS | Encounter Summary ---
Author Organization [facility] Address [address] [place] [address] Phone Care Team Providers Care Sole Layer Hand Name Role Phone Jean Carlos Covarrubias MD Primary Care Provider Encounter Details Date Type Department Care Team (Late st Contact Info) Description 04/04/2024 [facility] 1 [place] [address] Jean Carlos Covarrubias MD [address] [place] [address] Nausea and vomiting, unspecified vomiting [...] Primary documented in this encounter Care Teams Sole Layer Hand Relationship Specialty Start Date End Date Jean Carlos Covarrubias MD [address] [place] [address] PCP - General Pediatrics 11/26/17 documented as of this encounter
--- OUTSIDE RECORDS SUMMARY | 2024-08-18 16:52 | XMS_ITS | Encounter Summary ---
Author Organization [facility] Address [address] [place] [address] Phone Care Team Providers Care Winterizer Name Role Phone Jean Carlos Covarrubias MD Primary Care Provider Encounter Details Date Type Department Care Team (Late st Contact Info) Description 03/07/2022 Lab Requisition [facility] Services [address] [place] [address] Marisela Nazario, PLUG ASSEMBLER, SOLID WASTE DISPOSAL MANAGER [address] [place] [address] Contact with and (suspected) exposure [...] Coronavirus/COVID-19? No / Unsure 03/06/2022 2:25 PM GIS ANALYST documented as of this encounter Plan of Treatment Not on file documented as of this encounter Procedures Procedure Name Priority Date/Time Associated Diagnosis Comments HIV 1 & 2 ANTIBODY & ANTIGEN SCREEN Routine 03/06/2022 3:20 AM GIS ANALYST Contact with and (suspected) exposure to potentially hazardous body fluids HEP B SURFACE ANTIBODY - BLOOD PATH Routine 03/06/2022 3:20 AM GIS ANALYST Contact with and (suspected) exposure to potentially hazardous body fluids HEPATITIS C ANTIBODY Routine 03/06/2022 3:20 AM GIS ANALYST Contact with and (suspected) exposure to potentially hazardous body fluids BLOODBORNE PATHOGEN EXPOSED PATIENT PROFILE Routine 03/06/2022 3:20 AM GIS ANALYST Contact with and (suspected) exposure to potentially hazardous body fluids documented in this encounter Results * HIV 1 & 2 ANTIBODY & ANTIGEN SCREEN (03/06/2022 3:20 AM GIS ANALYST) HIV 1 & 2 ANTIBODY & ANTIGEN SCREEN NON DETECTED NON DETECTED [facility] ARCH [id number] 03/07/2022 2:50 PM [facility]ST [facility] Blood Venipuncture / Unknown 03/06/2022 3:20 AM GIS ANALYST 03/07/2022 9:17 AM GIS ANALYST us Marisela Nazario PLUG ASSEMBLER, SOLID WASTE DISPOSAL MANAGER LAB SEND OUTS Fin al Result Performing Organization Address City/State/[facility] Co de Phone Number [facility] [address] [place] [address], * HEP B SURFACE ANTIBODY - BLOOD PATH (03/06/2022 3:20 AM GIS ANALYST) HEPATITIS B SURFACE ANTIBODY <8.00 mIU/mL [facility] ARCH [id number] B 03/07/2022 2:55 PM GIS ANALYST [facility] Comment:Individual is consid ered not immune to HBV infection. Blood Venipuncture / Unknown 03/06/2022 3:20 AM GIS ANALYST 03/07/2022 9:18 AM GIS ANALYST us Marisela Nazario APRN, CNP HEMATOLOGY ORDERABL ES Final Result Performing Organization Address City/[facility] Co de Phone Number [facility] [address] [place] [address], [place] * HEPATITIS C ANTIBODY (03/06/2022 3:20 AM GIS ANALYST) hepatitis C antibody 0.19 <1 S/CO [facility] ARCH [id number] B 03/07/2022 2:48 PM GIS ANALYST [facility] Comment: Signal/Cutoff ratio < 0.79 is Nondetected Signal/Cutoff ratio 0.80-0.99 is Grayzone Signal/Cutoff ratio > 0.99 is Detected Supplemental assays are recommended if signal/cutoff ratio is >/=1.00. Signal/cutoff ratio result >/= 5.00 is 97% predictive of positivity for recombinant immunoblot assay (RIBA) and will be reported to the [place] Department of Public Health as required. Blood Venipuncture / Unknown 03/06/2022 3:20 AM GIS ANALYST 03/07/2022 9:18 AM GIS ANALYST us Marisela Nazario APRN, CNP CHEMISTRY ORDERABLE S Final Result Performing Organization Address [facility] de Phone Number [facility] [address] [place] [address], [place] documented in this encounter Visit Diagnoses Diagnosis Contact with and (suspected) exposure to potentially hazardous body fluids Personal history of contact with and (suspected) exposure to potentially hazardous body fluids documented in this encounter Care Teams Winterizer Relationship Specialty Start Date End Date Jean Carlos Covarrubias MD [address] [place] [address] PCP - General Pediatrics 11/26/17 documented as of this encounter
--- OUTSIDE RECORDS SUMMARY | 2024-08-18 16:52 | XMS_ITS | Referral Summary ---
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 Recommend trial of sleeping in wrist [...] 01/20/2022 Assessment & Plan (05/19/2022 3:32 PM CAN OPERATOR): Will obtain xrays though favor muscular and [...] needed. Assessment & Plan (06/16/2023 3:54 PM CAN OPERATOR): Lately notes head/scalp pain and other intermittent aches/pains which primarily seem to correlate with working out. She has jointed a [employer], discussed that while I am quite happy that she is exercising, generally would prefer a lower impact activity. However, as [employer] has her excited about going to the gym/is motivating her, she will continue with this though advised scaling when needed and to be sure to discuss her limitations with the head strength and conditioning coach. Discussed that we could try increasing [...] needed. Assessment & Plan (06/30/2022 12:32 PM CAN OPERATOR): Widespread pain improved with the addition of [...] needed. Assessment & Plan (05/19/2022 3:32 PM CAN OPERATOR): At this time will discontinue Celexa and [...] on file Legal Sex Female 1:50 AM CAN OPERATOR Gender Identity Not on file Sexual Orientation Not on file Last Filed Vital Signs Vital Sign Reading Time Taken Comments Blood Pressure 126/66 03/21/2024 1:30 PM CAN OPERATOR Pulse 57 03/21/2024 1:30 PM CAN OPERATOR Temperature 36.8 C (98.2 F) 03/21/2024 5:12 AM CAN OPERATOR Respiratory Rate 12 03/21/2024 1:30 PM CAN OPERATOR Oxygen Saturation 95% 03/21/2024 1:30 PM CAN OPERATOR Inhaled Oxygen Concentration - - Weight 108.4 kg (239 lb) 03/21/2024 3:37 AM CAN OPERATOR Height 157.5 cm (5' 2 ) 03/21/2024 3:37 AM CAN OPERATOR Body Mass Index 43.71 03/21/2024 3:37 AM CAN OPERATOR Plan of Treatment Not on file Insurance [facility] Member Subscriber Plan / Payer ( fective 2021-Present) Name:Esequiel Jones Relation to Subscriber:Self Name:Esequiel Jones Payer ID:[id number] (NAIC) Type: ALLIANCE Address: [id number] [place] [id number] [employer] [facility] Care Teams Cigarette Maker Relationship Specialty Start Date End Date Jean Carlos Covarrubias MD [address] [place] [address] PCP - General 08/03/16 Fco Florez MD [address] [place] [address] Consulting Physician Rheumatology 12/19/20
--- OUTSIDE RECORDS SUMMARY | 2024-08-18 16:52 | XMS_ITS | Clinical Summary ---
Author Organization [facility] Address [address] [place] [address] Phone Care Team Providers Care Law Writer Name Role Phone Jean Carlos Covarrubias MD Primary Care Provider Allergies Active Allergy Reactions Criticality Noted Date [...] 107 kg (236 lb) 04/11/2024 8:01 AM ARTISAN PLASTERER Height 157.5 cm (5' 2 ) 04/11/2024 8:01 AM ARTISAN PLASTERER Body Mass Index 43.16 04/11/2024 8:01 AM ARTISAN PLASTERER Plan of Treatment Health Maintenance Due Date [...] this topic Medical Devices Implanted Type Area Vice President Global [employer]vertising Sales Device Identifier Shelf Expiration Date Model / Serial / Lot Treia Soft With Side Holes Ureteral Stent 6f X 24 Cm Implanted:Qty: 1 on 05/18/2020 by Jhony Miranda MD at [facility] Right: Ureter [employer] 01/01/2023 [id number] / [id number] / [id number] Description:Special PER [employer] Procedures Procedure Name Priority Date/Time Associated Diagnosis Comments HEPATITIS C ANTIBODY Routine 10/16/2022 6:50 PM CDT Personal history of exposure to potentially hazardous body fluids from Last 3 Months or Most Recently Relevant to Health Maintenance Results * HEPATITIS C ANTIBODY (10/16/2022 6:50 PM CDT) hepatitis C antibody 0.14 <1 S/CO [facility] ARCH [id number] 10/17/2022 5:53 PM CDT [facility] Comment: Signal/Cutoff ratio < 0.79 is Nondetected Signal/Cutoff ratio 0.80-0.99 is Grayzone Signal/Cutoff ratio > 0.99 is Detected Supplemental assays are recommended if signal/cutoff ratio is >/=1.00. Signal/cutoff ratio result >/= 5.00 is 97% predictive of positivity for recombinant immunoblot assay (RIBA) and will be reported to the [place] Department of Public [facility] as required. Blood Venipuncture / Unknown 10/16/2022 6:50 PM CDT 10/16/2022 6:50 PM CDT us Corbin Zhou PAC CHEMISTRY ORDERABLES Final R esult [facility] [address] [place] [address], from Last 3 Months or Most Recently Relevant to Health Maintenance Insurance [employer] * Guarantor: [employer] Account Type Relation to Patient Date of Phone Billing Address Institutional Other [address] [place] [address] [facility] GENER[facility] Advance Directives Documents on File Type Date Recorded Patient Boating Safety Officer Expl anation Other Advance Directive 09/27/2021 1:23 PM wireless event monitoring Care Teams Law Writer Relationship Specialty Start Date End Date Jean Carlos Covarrubias MD [address] [place] [address] PCP - General Pediatrics 11/26/17
--- OUTSIDE RECORDS SUMMARY | 2024-08-18 16:52 | XMS_ITS | Clinical Summary ---
Author Organization [facility] Address [facility] [place] [address] Care Team Providers Care Cushion Maker Name Role Phone Jean Carlos Covarrubias [...] patient's age to complete this topic Insurance [facility] GTZ [facility] BLUE [facility] Care Teams Cushion Maker Relationship Specialty Start Date End Date Jean Carlos Covarrubias MD [address] [place], [place] [id number] PCP - General FAMILY PRACTICE 10/24/20
--- OUTSIDE RECORDS SUMMARY | 2024-08-18 16:52 | XMS_ITS | Clinical Summary ---
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 Recommend trial of sleeping in wrist [...] 01/20/2022 Assessment & Plan (05/19/2022 3:32 PM BUSINESS MANAGEMENT INTERN): Will obtain xrays though favor muscular and [...] needed. Assessment & Plan (06/16/2023 3:54 PM BUSINESS MANAGEMENT INTERN): Lately notes head/scalp pain and other intermittent aches/pains which primarily seem to correlate with working out. She has jointed a [employer] gym, discussed that while I am quite happy that she is exercising, generally would prefer a lower impact activity. However, as [employer] has her excited about going to the gym/is motivating her, she will continue with this though advised scaling when needed and to be sure to discuss her limitations with the motor coach bus driver. Discussed that we could try increasing her [...] needed. Assessment & Plan (06/30/2022 12:32 PM BUSINESS MANAGEMENT INTERN): Widespread pain improved with the addition of [...] needed. Assessment & Plan (05/19/2022 3:32 PM BUSINESS MANAGEMENT INTERN): At this time will discontinue Celexa and [...] Type Department Care Team Description 07/25/[address] [address] Coby Short from Last 3 Months Immunizations Immunization [...] on file Legal Sex Female 1:50 AM BUSINESS MANAGEMENT INTERN Gender Identity Not on file Sexual Orientation Not on file Obstetrics History Last Filed Vital Signs Vital Sign Reading Time Taken Comments Blood Pressure 126/66 03/21/2024 1:30 PM BUSINESS MANAGEMENT INTERN Pulse 57 03/21/2024 1:30 PM BUSINESS MANAGEMENT INTERN Temperature 36.8 C (98.2 F) 03/21/2024 5:12 AM BUSINESS MANAGEMENT INTERN Respiratory Rate 12 03/21/2024 1:30 PM BUSINESS MANAGEMENT INTERN Oxygen Saturation 95% 03/21/2024 1:30 PM BUSINESS MANAGEMENT INTERN Inhaled Oxygen Concentration - - Weight 108.4 kg (239 lb) 03/21/2024 3:37 AM BUSINESS MANAGEMENT INTERN Height 157.5 cm (5' 2 ) 03/21/2024 3:37 AM BUSINESS MANAGEMENT INTERN Body Mass Index 43.71 03/21/2024 3:37 AM BUSINESS MANAGEMENT INTERN Plan of Treatment Health Maintenance Due Date [...] patient's age to complete this topic Insurance [employer] [facility], [facility] Care Teams Order Entry Clerk Relationship Specialty Start Date End Date Jean Carlos Covarrubias MD [address] [place] [address] PCP - General 08/03/16 Fco Florez MD [address] [place] [address] Consulting Physician Rheumatology 12/19/20
--- OUTSIDE RECORDS SUMMARY | 2024-08-18 16:52 | XMS_ITS | Encounter Summary ---
Author Organization [facility] Address [facility] [facility] [place] [address] Care Team Providers Care Inorganic Chemist Name Role Phone Jean Carlos Covarrubias MD Primary Care Provider [phone] Reason for Visit * Radiology Services (Routine) - Authorized Specialty Diagnoses / Procedures Referred By Yenny fairchild Referred To Contact Ultrasound Diagnoses Kidney stones Procedures US Retroperitoneal Complete Hiro Schuler PA [address] [place] [address] Phone: tel: fax: Referral ID Status Reason Start Date Expiration Date V isits Requested Visits Authorized [id number] Authorized 08/01/2024 08/01/2025 1 1 Encounter Details Date Type Department Care Team (Late st Contact Info) Description 08/17/2024 4:45 PM CDT Hospital Encounter [facility] Health Imaging Services - Ultrasound [address] [place] [address] Hiro Schuler PA [address] [place] [address] Social History Tobacco Use Types Packs/Day Years Used Date Smoking Tobacco: Former Cigarettes Q uit: 04/16/2017 Smokeless Tobacco: Never Alcohol Use Standard Drinks/Week Comments Not Currently [...] difficulty? Answer Date of Assessment Author No 05/17/2024 1:56 PM Nayla Landaverde RN * Is person blind or have serious difficulty seeing? Answer Date of Assessment Author No 05/17/2024 1:56 PM Nayla Landaverde RN * Does person have serious difficulty walking/climbing stairs? Answer Date of Assessment Author No 05/17/2024 1:56 PM Nayla Landaverde RN * Does person have difficulty dressing/bathing? Answer Date of Assessment Author No 05/17/2024 1:56 PM Nayla Landaverde RN * Does person have difficulty doing errands alone? Answer Date of Assessment Author No 05/17/2024 1:56 PM Nayla Landaverde RN documented as of this encounter Mental Status * Does person have difficulty concentrating/remembering/making decisions? Answer Entry Date Author No 05/17/2024 1:56 PM Nayla Landaverde RN documented in this encounter Plan of Treatment Upcoming Encounters Date Type Department Care Team (Late st Contact Info) Description 09/06/2024 3:20 PM CDT Office Visit [facility] - Urology [address] [place] [address] Hiro Schuler PA [address] [place] [id number] 09/08/2024 12:30 PM CDT Office Visit [facility] - GI [address] [facility], [place] [phone] Germaine Renteria MD [address] [facility] [address] [place] [phone] 11/10/2024 11:00 AM CDT Office Visit [facility] - GI [address] [place] [address] Scheduled Orders Name Type Priority Associated Diagnoses Orde r Schedule US Retroperitoneal Complete Imaging Routine Kidney stones Expected: 08/01/2024, Expires: 02/03/2025 documented as of this encounter Goals Goal Patient Goal Type Associated Problems Recent Progress Patient-Stated? Author Medication Management General On track( 025 2:11 PM DIRECTOR OF INFECTION CONTROL) No Davie Ramos, RN Note: Expected end date: ongoing Interventions: Take all medications as prescribed Let your doctor know right away about any changes in your medications Make sure to request a refill of your medication at least one week prior to your last dose Safety General On track( 025 2:11 PM DIRECTOR OF INFECTION CONTROL) No Leticia Wells, RN Note: Expected end date: ONGOING Interventions: Keep personal items within easy reach Use some light at night in your room Keep walking paths clutter free and clear documented as of this encounter Visit Diagnoses Not on filedocumented in this encounter Care Teams Inorganic Chemist Relationship Specialty Start Date End Date Jean Carlos Covarrubias MD [address] [place] [id number] PCP - General Family Medicine 04/22/23 documented as of this encounter
--- OUTSIDE RECORDS SUMMARY | 2024-08-18 16:52 | XMS_ITS | Clinical Summary ---
Author Organization [facility] [place] Address [address] [place] [address] Care Team Providers Care Aviation Project Engineer Name Role Phone Jean Carlos Covarrubias MD Primary Care Provider [phone] Source Comments [facility] [place],non-owned Affiliates and Associated Physician Practices is amultiple site organization consisting of ambulatory clinics and hospital sitesin [place], [place], [place] and [place]. This disclosure is being madepursuant to the Care Everywhere program and may not contain all information available regarding this patient. Last updated 18.[facility] [place] Allergies Active Allergy Reactions Criticality Noted Date [...] 2 (two) puffs by mouth as needed 01/10/20 21 Active DULoxetine (CYMBALTA) 30 MG capsule 08/08/19 22 Active pantoprazole EC (Protonix) 20 MG tablet Take 1 (one) tablet by mouth once daily Active pregabalin (Lyrica) 25 MG capsule Take 1 (one) capsule by mouth every morning 04/06/20 23 Active ondansetron (Zofran) 4 MG tablet Take 1 (one) tablet by mouth every 8 hours as needed Active ofloxacin (Floxin) 0.3 % otic solutionIndicati ons:Chronic diffuse otitis externa of both ears Instill 5 (five) drops into both ears 2 times daily 5 mL 05/26/19 24 Active Additional Information Patient taking differently:5 drop Each EarPRN, Reported on 05/13/2024 traZODone (Desyrel) 50 MG tablet Take 1 (one) tablet by mouth as needed 07/15/19 24 Active fluticasone propionate (Flonase) 50 MCG/ACT nasal spray Jay 2 (two) sprays into each nostril once daily 48 g 4 09/07/19 24 Active Additional Information Patient taking differently:2 spray Each NostrilPRN, Reported on 10/05/2023 ZOLMitriptan, disintegrating, (Zomig ZMT) 5 MG tablet Take 1 (one) tablet by mouth as needed Maximum daily dose: 10 mg/24 hours 9 tablet 6 10/05/19 24 Active riboflavin 400 MG capsule Take 1 (one) capsule by mouth once daily 100 capsule 6 10/05/19 24 Active Additional Information Patient not taking.Reported on 05/12/2024 Magnesium-Potass ium 70-99 MG CAPS Take 2 capsules by mouth once daily Active furosemide (Lasix) 20 MG tabletIndication s:Leg swelling Take 1 (one) tablet by mouth once daily as needed 90 tablet 11/23/19 24 Active Additional Information Patient not taking.Reported on 06/09/2024 famotidine (Pepcid) 20 MG tabletIndication s:Laryngopharyng eal reflux (LPR) Take 1 (one) tablet by mouth 2 times daily 120 tablet 3 12/07/19 24 Active Additional Information Patient not taking.Reported on 06/09/2024 Galcanezumab-gnl m (Emgality) 120 MG/ML auto-injector pen Inject 1 mL subcutaneously every 30 days 3 mL 3 01/07/20 24 Active Additional Information Patient not taking.Reported on 05/12/2024 polyethylene glycol 3350 (Miralax) 17 GM/SCOOP powderIndication s:Constipation, unspecified constipation type Take 17 (seventeen) g by mouth once daily 238 g 05/12/19 25 Active Additional Information Patient not taking.Reported on 05/13/2024 ondansetron, disintegrating, (Zofran ODT) 4 MG tablet Take 1 (one) tablet by mouth as needed for Nausea/Vomiting 03/21/20 24 Active Other Optavia diet Active nitrofurantoin monohyd macro crystals (Macrobid) 100 MG capsule Take 1 (one) capsule by mouth 2 times daily with morning and evening meal 10 capsule 06/17/19 25 Active phenazopyridine (Pyridium) 200 MG tablet Take 1 (one) tablet by mouth 3 times daily as needed 12 tablet 06/17/19 25 Active ciprofloxacin-de xAMETHasone (Ciprodex) 0.3-0.1 % otic suspensionIndica tions:OME (otitis media with effusion), left,Myringotomy tube status,Chronic diffuse otitis externa of both ears Apply 4 drops to the affected ear twice daily x 7 days 10 mL 06/24/19 25 Active metoprolol succinate XL 24hr (Toprol XL) 50 MG tablet TAKE 1 TABLET BY MOUTH DAILY 90 tablet 3 07/20/19 25 Active Active Problems Problem Noted Date Diagnosed [...] reassess . PVC (premature ventricular contraction) 01/05/20 20 Assessment & Plan (05/17/2021 11:56 AM STAMP PAD MAKER): Evaluated by EP in the past. Very [...] 01/05/2020 Assessment & Plan (05/17/2021 12:09 PM STAMP PAD MAKER): Continues to have atypical features. 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 # followup in 3 months Irritable bowel syndrome with constipation 05/23 Interstitial cystitis 12/02/2018 S/P laparoscopic procedure 10/04/2018 DNS (deviated nasal septum) 09/04/2018 UARS (upper airway resistance syndrome) 09/05/19 19 Overview (10/06/2019): Overview: Mild positional CHANTEL [...] Encounters Date Type Department Care Team Description 08/17/2024 4:45 PM CDT Hospital Encounter [facility] Health Imaging Services - Ultrasound [address] [place] [address] Hiro Schuler PA 07/19/2024 Refill [facility] - Cardiology [address] [facility] [address] [place] [phone] Andrew Roper MD Refill Request 07/08/2024 9:00 AM CDT - 07/08/2024 11:59 PM T Hospital Encounter [facility] CAT SCAN [address] [place] [phone] Germaine Renteria MD Discharge Disposition: Home or Self Care 07/08/2024 Travel 06/24/2024 Orders Only [facility] - ENT [address] [facility], [place] [phone] Medardo Carpenter APRN-ANNETTE OME (otitis media with effusion), left ; Myringotomy tube status; Chronic diffuse otitis externa of both ears 06/20/2024 Telephone [facility] - Urology [address] [place] [phone] Hiro Schuler PA Follow-up 06/17/2024 Telephone [facility] - Urology [address] [facility], [place] [phone] Hiro Schuler PA Follow-up 06/16/2024 Telephone [facility] - Urology [address] [place] [address] Hiro Schuler PA Follow-up 06/09/2024 3:24 PM STAMP PAD MAKER - 06/09/2024 11:59 PM STAMP PAD MAKER Hospital Encounter [facility] LAB OP DRAW STATION [address] [place] [phone] Discharge Disposition: Home or Self Care 06/09/2024 1:30 PM STAMP PAD MAKER Office Visit [facility] - GI [address] [facility] [place] [phone] Germaine Renteria MD Metabolic dysfunction-associat ed steatotic liver disease (MASLD) (Primary Dx); Elevated liver enzymes; RUQ discomfort; Abnormal liver diagnostic imaging; BMI 40.0-44.9, adult; History of cholecystectomy; Adenomatous polyp of colon, unspecified part of colon 06/09/2024 Travel from Last 3 Months Immunizations Immunization [...] Comments Blood Pressure 128/69 06/09/2024 1:54 PM STAMP PAD MAKER Pulse 65 06/09/2024 1:54 PM STAMP PAD MAKER Temperature 36.8 C (98.2 F) 06/09/2024 1:54 PM STAMP PAD MAKER Respiratory Rate 14 05/17/2024 2:43 PM STAMP PAD MAKER Oxygen Saturation 99% 06/09/2024 1:54 PM STAMP PAD MAKER Inhaled Oxygen Concentration - - Weight 106.3 kg (234 lb 6.4 oz) 06/09/2024 1:54 PM STAMP PAD MAKER Height 157.5 cm (5' 2 ) 06/09/2024 1:54 PM STAMP PAD MAKER Body Mass Index 42.87 06/09/2024 1:54 PM STAMP PAD MAKER Plan of Treatment Upcoming Encounters Date Type Department Care Team (Late st Contact Info) Description 09/06/2024 3:20 PM CDT Office Visit [facility] - Urology [address] [place] [phone] Hiro Schuler PA [address] [place] [phone] 09/08/2024 12:30 PM CDT Office Visit [facility] - GI [address] [facility] [place] [phone] Germaine Renteria MD [address] [facility] [address] [place] [phone] 11/10/2024 11:00 AM CDT Office Visit [facility] - GI [address] [place] [phone] Health Maintenance Due Date Last Done Comments MAMMOGRAM 1982 PAP SMEAR 1982 HIV SCREENING 1997 DTAP/TDAP/TD VACCINES (1 - Tdap) 2001 HEPATITIS B VACCINE (1 of 3 - 19+ 3-dose series) 2001 COVID-19 VACCINE (3 - 2023- season) 2023 12/17/2020, 11/19/2020 DEPRESSION SCREENING 04/27/2024 [...] Medication Management General On track( 2:11 PM STAMP PAD MAKER) No Davie Ramos, RN Note: Expected end date: ongoing Interventions: Take all medications as prescribed Let your doctor know right away about any changes in your medications Make sure to request a refill of your medication at least one week prior to your last dose Safety General On track( 025 2:11 PM STAMP PAD MAKER) No Leticia Wells, RN Note: Expected end date: ONGOING Interventions: Keep personal items within easy reach Use some light at night in your room Keep walking paths clutter free and clear Medical Devices Implanted Type Area Agile Scrum Coach Device Identifier Shelf Expiration Date Model / Serial / Lot Mesh Srg Ventralight St Sepra 8x6in - Sn/A Implanted:Qty: 1 on 08/28/2020 by Magan Ortiz MD at [facility] N/A: Abdomen [employer] 03/24/2022 [id number] / N/A / [id number] Description:INCISIONAL HERNI A NEAR UMBILICUS Sys Fx 37cm Cpsr Str Ss Peek Perm Hndl - Sn/A Implanted:Qty: 1 on 08/28/2020 by Magan Ortiz MD at [facility] N/A: Abdomen [employer] 04/23/2022 [id number] / N/A / [id number] Procedures Procedure Name Priority Date/Time Associated Diagnosis Comments CT ABDOMEN MULTI PHASE W CONT Routine 07/08/2024 9:42 AM CDT Metabolic dysfunction-associa alnozo steatotic liver disease (MASLD) CULTURE URINE Routine 06/17/2024 9:09 AM STAMP PAD MAKER Dysuria SMOOTH MUSCLE ANTIBODY W REFLEX TITER Routine 06/09/2024 3:27 PM STAMP PAD MAKER Metabolic dysfunction-associa alonzo steatotic liver disease (MASLD) IGG BLOOD Routine 06/09/2024 3:27 PM STAMP PAD MAKER Metabolic dysfunction-associa alonzo steatotic liver disease (MASLD) CERULOPLASMIN Routine 06/09/2024 3:27 PM STAMP PAD MAKER Metabolic dysfunction-associa alonzo steatotic liver disease (MASLD) IGA BLOOD Routine 06/09/2024 3:27 PM STAMP PAD MAKER Metabolic dysfunction-associa alonzo steatotic liver disease (MASLD) SLA AUTOANTIBODY Routine 06/09/2024 3:27 PM STAMP PAD MAKER Metabolic dysfunction-associa alonzo steatotic liver disease (MASLD) MICROSOMAL ANTIBODY LIVER/KIDNEY Routine 06/09/2024 3:27 PM STAMP PAD MAKER Metabolic dysfunction-associa alonzo steatotic liver disease (MASLD) IGM BLOOD Routine 06/09/2024 3:27 PM STAMP PAD MAKER Metabolic dysfunction-associa alonzo steatotic liver disease (MASLD) CBC W AUTO DIFFERENTIAL Routine 06/09/2024 3:27 PM STAMP PAD MAKER Metabolic dysfunction-associa alonzo steatotic liver disease (MASLD) COMPREHENSIVE METABOLIC PANEL Routine 06/09/2024 3:27 PM STAMP PAD MAKER Metabolic dysfunction-associa alonzo steatotic liver disease (MASLD) PT-INR [facility] Routine 06/09/2024 3:27 PM STAMP PAD MAKER Metabolic dysfunction-associa alonzo steatotic liver disease (MASLD) LIPID PROFILE Routine 11/23/2023 12:28 PM CDT [...] on follow-up imaging. Report dictated by [facility], FRCR (radiology fellow). I, Jose Hein have personally reviewed and interpreted this examination/study. > Interpreting Provider: Jose Hein on 07/08/2024 10:39 AM Narrative 07/08/2024 10:39 AM CDT PROCEDURE: CT ABDOMEN MULTI PHASE W CONT, DATE/TIME OF EXAM: 07/08/2024 9:44 AM, LOCATION [facility] INDICATION: K76.0: Metabolic dysfunction-associated steatotic liver [...] DATE/TIME OF EXAM: 07/08/2024 9:44 AM, LOCATION [facility] INDICATION: K76.0: Metabolic dysfunction-associated steatotic liver [...] on follow-up imaging. Report dictated by Bethanie Samuels FRRITIKA (radiology fellow). I, Jose Hein have personally reviewed and interpreted this examination/study. > Interpreting Provider: Jose Hein on 07/08/2024 10:39 AM Germaine Renteria MD CT ORDERABLES Final Result * (ABNORMAL) CULTURE URINE (06/17/2024 9:09 AM STAMP PAD MAKER) Culture (A) [facility] Comment: CULTURE, URINE, ROUTINE Micro Number: [id number] Test Status: Final Specimen Source: Urine Specimen Quality: Adequate Result: 50,000-100,000 CFU/mL of Coagulase negative staphylococcus, not S. saprophyticus May represent colonizers from external and internal genitalia. No further testing (including susceptibility) will be performed. Test Performed at: [facility] [address] REILLY AHUMADA MD Urine URINE SPECIMEN OBTAINED BY CLEAN CATCH PROCEDURE / Unknown 06/17/2024 9:09 AM STAMP PAD MAKER 06/17/2024 9:09 AM STAMP PAD MAKER Hiro Coates LAB - MICROBIOLOGY ORDERABLES Fi nal Result [facility] [address] [place] [address] * PT-INR [facility] (06/09/2024 3:27 PM STAMP PAD MAKER) PT 13.0 12.1 - 14.8 Seconds 06/09/2024 4:43 PM STAMP PAD MAKER [facility] INR 1.0 See Comment 06/09/2024 4:43 PM STAMP PAD MAKER [facility] Comment:The suggested therap eutic range for standard coumadin (warfarin) therapy is an INR of 2.0-3.0. For high-risk patients (Mechanical Mitral Valve Prosthesis, etc.), the suggested prophylactic therapeutic range is an INR of 2.5-3.5. Blood BLOOD SPECIMEN / Unknown Lab Venipuncture / Unknown 06/09/2024 3:27 PM STAMP PAD MAKER 06/09/2024 3:51 PM STAMP PAD MAKER [facility] Myra BOYER LAB - COAGULATION ORDERABLES Fin al Result Performing Organization Address [facility]/State/ZIP Co de Phone Number [address] [address] [phone] * SOLUBLE LIVER ANTIGEN (SLA) ANTIBODY (06/09/2024 3:27 PM STAMP PAD MAKER) Soluable Liver Antigen Antibody IgG 1.0 0.0 - 24.9 U 06/12/2024 11:47 PM STAMP PAD MAKER [employer] ([facility]) Comment: REFERENCE INTERVAL: Soluble Liver Antigen Antibody, IgG 0.0 - 20.0 U ........... Negative 20.1 - 24.9 U ........... Equivocal 25.0 U or greater ....... Positive The presence of SLA antibodies has almost 100% specificity for autoimmune hepatitis, although only 12-30% have these antibodies. Thus, a negative SLA IgG test does not rule out autoimmune hepatitis. Performed by [facility], [address] [place] [id number] www.[email or web address], Nghia Mcgrath MD, Lab. Director CLIA Number: [id number] Blood BLOOD SPECIMEN / Unknown Lab Venipuncture / Unknown 06/09/2024 3:27 PM STAMP PAD MAKER 06/09/2024 3:51 PM STAMP PAD MAKER us Germaine Renteria MD LAB - SEROLOGY ORDERABLES Final Result Performing Organization Address City/[facility]/ZIP Co de Phone Number [facility] [employer] [facility]) [address] * SMOOTH MUSCLE ANTIBODY W REFLEX TITER (06/09/2024 3:27 PM STAMP PAD MAKER) F-Actin Antibody IgG 15 0 - 19 Units 06/11/2024 7:31 AM STAMP PAD MAKER [facility] [employer] ([facility]) Comment: If F-Actin (Smooth Muscle) Antibody, IgG [...] suspicion for AIH is strong. Performed By: [facility] [address] [place] [address] Cardiac/Vascular Sonographer: Alvin Son MD, PhD CLIA Number: [id number] Blood BLOOD SPECIMEN / Unknown Lab Venipuncture / Unknown 06/09/2024 3:27 PM STAMP PAD MAKER 06/09/2024 3:50 PM STAMP PAD MAKER us Germaine Renteria MD LAB - SEROLOGY ORDERABLES Final Result Performing Organization Address [facility] Co de Phone Number [facility] [employer] [facility]) [address] * MICROSOMAL ANTIBODY LIVER/KIDNEY (06/09/2024 3:27 PM STAMP PAD MAKER) Pathologist [facility] Liver/Kidney Microsomal Antibody IgG <1:20 <1:20 06/11/2024 7:53 PM STAMP PAD MAKER COUNT INCLUDES THE [facility] ([facility]) Comment: INTERPRETIVE INFORMATION: Focsi-Thstww-Ycetdoqnw Abs, IgG Liver-Kidney Microsome IgG antibody (anti-LKM), as detected by indirect immunofluorescent antibody (IFA) techniques, may be observed in patients with autoimmune hepatitis type 2 (AIH-2), AIH-2 associated with autoimmune catxjwjgqffpzqkkpo-kudtziybcjk-cvjxetkbpz dystrophy (APECED), viral hepatitis C or D, and some forms of drug-induced hepatitis. This IFA does not differentiate among the four types of LKM antibodies (LKM-1, LKM-2, LKM-3, and a fourth type that recognizes CY and CY antigens). Of these, anti-LKM-1 (cytochrome [id number]) IgG antibodies are considered specific for AIH-2. This test was developed and its performance characteristics determined by [facility]. It has not been cleared or approved by the US Food and Drug Administration. This test was performed in a CLIA certified laboratory and is intended for clinical purposes. Performed By: [facility] [address] [place] [address] Cardiac/Vascular Sonographer: Alvin Son MD, PhD CLIA Number: [id number] Blood BLOOD SPECIMEN / Unknown Lab Venipuncture / Unknown 06/09/2024 3:27 PM STAMP PAD MAKER 06/09/2024 3:51 PM STAMP PAD MAKER Germaine Renteria MD LAB - CHEMISTRY ORDERABLES Final Result [facility] [employer] [facility]) [address] [place] [address], [facility] * CERULOPLASMIN (06/09/2024 3:27 PM STAMP PAD MAKER) Pathologist [facility] Ceruloplasmin 40 20 - 60 mg/dL 06/09/2024 4:20 PM STAMP PAD MAKER [facility] Blood BLOOD SPECIMEN / Unknown Lab Venipuncture / Unknown 06/09/2024 3:27 PM STAMP PAD MAKER 06/09/2024 3:51 PM STAMP PAD MAKER Germaine Renteria MD LAB - CHEMISTRY ORDERABLES Final Result [facility] [address] [place] [address] [phone] * (ABNORMAL) CBC WITH DIFFERENTIAL (06/09/2024 3:27 PM STAMP PAD MAKER) WBC 7.0 4.0 - 10.7 x10E9/L 06/09/2024 4:10 PM [facility] RBC Count 4.88 3.90 - 5.20 x10E12/L 06/09/2024 4:10 PM [facility] Hemoglobin 12.8 11.9 - 15.8 g/dL 06/09/2024 4:10 PM [facility] Hematocrit 39.2 34.8 - 46.1 % 06/09/2024 4:10 PM [facility] MCV 80.3 80.0 - 98.0 fL 06/09/2024 4:10 PM [facility] MCH 26.2(L) 26.7 - 33.6 pg 06/09/2024 4:10 PM [facility] MCHC 32.7 31.7 - 36.3 g/dL 06/09/2024 4:10 PM [facility] RDW-CV 13.6 11.3 - 14.8 % 06/09/2024 4:10 PM [facility] Platelet Count 341 150 - 420 x10E9/L 06/09/2024 4:10 PM [facility] MPV 10.6 7.8 - 11.4 fL 06/09/2024 4:10 PM [facility] Neutrophil % 68.2 41.0 - 74.0 % 06/09/2024 4:10 PM [facility] Lymphocyte % 24.4 17.0 - 47.0 % 06/09/2024 4:10 PM [facility] Monocyte % 5.3 3.0 - 11.0 % 06/09/2024 4:10 PM [facility] Eosinophil % 1.9 0.0 - 7.0 % 06/09/2024 4:10 PM [facility] Basophil % 0.1 0.0 - 1.6 % 06/09/2024 4:10 PM [facility] Immature Granulocytes % 0.1 0.0 - 1.0 % 06/09/2024 4:10 PM [facility] Neutrophil Absolute 4.75 1.60 - 7.50 x10E9/L 06/09/2024 4:10 PM [facility] Lymphocyte Absolute 1.70 1.00 - 4.40 x10E9/L 06/09/2024 4:10 PM [facility] Monocyte Absolute 0.37 0.15 - 1.00 x10E9/L 06/09/2024 4:10 PM [facility] Eosinophil Absolute 0.13 0.00 - 0.60 x10E9/L 06/09/2024 4:10 PM [facility] Basophil Absolute 0.01 0.00 - 0.13 x10E9/L 06/09/2024 4:10 PM [facility] Blood BLOOD SPECIMEN / Unknown Lab Venipuncture / Unknown 06/09/2024 3:27 PM STAMP PAD MAKER 06/09/2024 3:59 PM [facility] Germaine Renteria MD LAB - HEMATOLOGY ORDERABLES Lizz menard Result Performing Organization Address [facility]/State/ZIP Co de Phone Number [facility] [address] [place] [phone], [facility] [phone] * (ABNORMAL) COMPREHENSIVE METABOLIC PANEL (06/09/2024 3:27 PM STAMP PAD MAKER) BUN 15 7 - 26 mg/dL 06/09/2024 4:25 PM [facility] Creatinine 0.70 0.56 - 0.96 mg/dL 06/09/2024 4:25 PM [facility] Sodium 141 136 - 145 mmol/L 06/09/2024 4:25 PM [facility] Potassium 3.8 3.5 - 4.5 mmol/L 06/09/2024 4:25 PM [facility] Chloride 107 98 - 107 mmol/L 06/09/2024 4:25 PM [facility] CO2 25 22 - 29 mmol/L 06/09/2024 4:25 PM [facility] Glucose 90 70 - 99 mg/dL 06/09/2024 4:25 PM [facility] Calcium 9.6 8.4 - 10.2 mg/dL 06/09/2024 4:25 PM [facility] Protein Total 7.6 6.0 - 8.3 g/dL 06/09/2024 4:25 PM [facility] Albumin 4.1 3.4 - 5.0 g/dL 06/09/2024 4:25 PM [facility] Bilirubin Total 0.4 0.2 - 1.2 mg/dL 06/09/2024 4:25 PM [facility] Alkaline Phosphatase 149 40 - 150 U/L 06/09/2024 4:25 PM [facility] ALT 77(H) 5 - 55 U/L 06/09/2024 4:25 PM [facility] AST 53(H) 5 - 34 U/L 06/09/2024 4:25 PM [facility] Anion Gap 9 6 - 16 06/09/2024 4:25 PM [facility] BUN/Creatinine Ratio 21 7 - 23 06/09/2024 4:25 PM [facility] Osmolality Calculated 292 275 - 295 mOsm/kg 06/09/2024 4:25 PM [facility] Albumin/Globulin Ratio 1.2 1.1 - 2.3 06/09/2024 4:25 PM [facility] eGFR by CKD-EPI >90 >=90 mL/min/1.7 3 m2 06/09/2024 4:25 PM [facility] Blood BLOOD SPECIMEN / Unknown Lab Venipuncture / Unknown 06/09/2024 3:27 PM STAMP PAD MAKER 06/09/2024 4:00 PM RUST Germaine Renteria MD LAB - CHEMISTRY ORDERABLES Final Result [facility] [address] [place] [address], [facility] [phone] * IGM BLOOD (06/09/2024 3:27 PM RUST) IgM 123 37 - 286 mg/dL 06/09/2024 4:19 PM STAMP PAD MAKER [facility] Blood BLOOD SPECIMEN / Unknown Lab Venipuncture / Unknown 06/09/2024 3:27 PM STAMP PAD MAKER 06/09/2024 3:51 PM STAMP PAD MAKER us Germaine Renteria MD LAB - CHEMISTRY ORDERABLES Final Result [address] [address], [place] [phone] * IGG BLOOD (06/09/2024 3:27 PM STAMP PAD MAKER) Pathologist [facility] IgG 1,273 767 - 1,590 mg/dL 06/09/2024 4:19 PM STAMP PAD MAKER [facility] Blood BLOOD SPECIMEN / Unknown Lab Venipuncture / Unknown 06/09/2024 3:27 PM STAMP PAD MAKER 06/09/2024 3:51 PM STAMP PAD MAKER us Germaine Renteria MD LAB - CHEMISTRY ORDERABLES Final Result Performing Organization Address City/[facility]/ZIP Co de Phone Number [address] [address], [place] [phone] * IGA BLOOD (06/09/2024 3:27 PM STAMP PAD MAKER) Pathologist [facility] IgA 313 61 - 356 mg/dL 06/09/2024 4:19 PM STAMP PAD MAKER [facility] Blood BLOOD SPECIMEN / Unknown Lab Venipuncture / Unknown 06/09/2024 3:27 PM STAMP PAD MAKER 06/09/2024 3:51 PM STAMP PAD MAKER us Germaine Renteria MD LAB - CHEMISTRY ORDERABLES Final Result [address] [address], [place] [phone] * LIPID PROFILE (11/23/2023 12:28 PM CDT) Pathologist [facility] Cholesterol Total 139 <200 mg/dL 11/23/2023 2:29 PM CDT [facility] HDL 51 >40 mg/dL 11/23/2023 2:29 PM T [facility] Comment: ATP III Classification of HDL Cholesterol: <40 mg/dL: Considered a major risk factor. >60 mg/dL: Considered a negative risk factor. LDL Calculated 66 <100 mg/dL 11/23/2023 2:29 PM T [facility] Comment: ATP III Classification of LDL Cholesterol: <100 mg/dL: Optimal 100 - 129 mg/dL: Near Optimal/Above Optimal 130 - 159 mg/dL: Borderline High 160 - 189 mg/dL: High >190 mg/dL: Very High Triglycerides 112 <150 mg/dL 11/23/2023 2:29 PM T [facility] Comment: ATP III Classification of Triglycerides: <150 mg/dL: Normal 150 - 199 mg/dL: Borderline High 200 - 400 mg/dL: High >500 mg/dL: Very High Blood BLOOD SPECIMEN / Unknown Lab Venipuncture / Unknown 11/23/2023 12:28 PM CDT 11/23/2023 1:12 PM CDT Galdino Reynoso [employer]M G[employer] LAB - CHEMISTRY ORDE ED Final Result [facility] [address] [place] [address], [facility] [phone] from Last 3 Months or Most Recently Relevant to Health Maintenance Insurance [facility] Advance Directives * Full Code (Latest Code Status on File) Date Activated Date Inactivated Comments 08/28/2020 10:32 AM 08/29/2020 4:37 PM * Full Code Date Activated Date Inactivated Comments 10/04/2018 3:46 PM 10/07/2018 5:15 PM Care Teams Aviation Project Engineer Relationship Specialty Start Date End Date Jean Carlos Covarrubias MD [address] [place] [phone] PCP - General Family Medicine 04/22/23
--- OUTSIDE RECORDS SUMMARY | 2024-08-18 16:52 | XMS_ITS | Data Portability ---
Author Organization [place] [facility] ([facility]), Main Office Address [address] [place] [address] Assessment No assessment recorded. Plan of Treatment Reminders Order Date Submit Date Provider Last Modified By Organization Details Last Modified Time Details Appointments None recorded. Lab None recorded. Referral None recorded. Procedures None recorded. Surgeries None recorded. Imaging audiogram + tympanogram 2022 023 [facility] ([facility] Scheduling, [address] [place] [address], [address], 3 16:42:49 Medication Orders cefdinir 300 mg capsule 2022 023 DENEEN [id number], [address], [phone], 3 17:03:18 ofloxacin 0.3 % ear drops 2022 023 [place] [facility] #[id number], [address], [phone], 3 17:03:13 Patient TargetsNo targets recorded. Patient InstructionsNo instructions recorded. Reason for Referral None Reported. Results Created Date Observation Date Name Description Value Unit Range Abnormal Flag Note LastModifiedBy Organization Detail LastModifiedTime 09/21/1909/17/2021 audio gram + vikki sanders No observ ation record ed. [id number] [facility] [address] [facility] [address], [place], [address], 06/25/2022 21:55:05 10/22/19 22 10/17/2021 CT, sinus es, w/o contr ast No observ ation record ed. [id number] Not Available 06/25/2022 21:55:05 10/25/19 22 10/17/2021 CT, sinus es, w/o contr ast No observ ation record ed. [id number] Not Available 06/25/2022 21:55:05 09/02/19 23 08/26/2022 XR, elbow , 3 or more view No observ ation record ed. [email or web address] Not Available 11/2022 11:21:48 Result Notes None recorded. Problems Name Problem SNOMED Code Status Onset Date Resolution Date Notes Provider Name and Address Organization Details Recorded Time Dysfunctio n of bilateral eustachian tubes 6880358259801 100 Active 2021 Not Available [facility] 3 21:53:40 Acute sinusitis 01340800 Active 2021 Not Available [facility] 3 21:53:40 Chronic otitis media 18805447 Active 2021 Not Available [facility] 3 21:53:40 Chronic otitis media 10675852 Active 2021 Not Available [facility] 3 21:53:40 Chronic sinusitis 62019889 Active 2021 Not Available [facility] 3 21:53:40 Sensorineu ral hearing loss 15190543 Active 2021 Not Available [facility] 3 21:53:40 Chronic serous otitis media 48822405 Active 2021 Not Available [facility] 3 21:53:40 Chronic serous otitis media 43760897 Active 2022 Carlos Shetty MD [address] [place] [address], [place], [address] , [facility] 3 16:13:26 Problem Notes None recorded. Procedures Surgical History Date Name Laterality Status Provider Name and Address Organization Details Recorded Time 01/19/20 SEPTOPLASTY (SURG) completed Not Available [facility] 06/25/2022 21:55:00 Myringotomy Tube Placement completed Not Available [facility] 06/25/2022 21:53:02 reduction of nasal turbinate completed Not Available [facility] 06/25/2022 21:53:02 inflation of Eustachian tube using balloon completed Not Available [facility] 06/25/2022 21:53:02 Imaging Results Imaging Date Name Status LastModified by [facility] Details LastModified Time 09/17/2021 audiogram + tympanogram completed [id number] [facility] [address], [place], [address], 06/25/2022 21:55:05 10/17/2021 CT, sinuses, w/o contrast completed [id number] Information not available 06/25/2022 21:55:05 10/17/2021 CT, sinuses, w/o contrast completed [id number] Information not available 06/25/2022 21:55:05 08/26/2022 XR, elbow, 3 or more view completed [email or web address] Information not available 09/01/2022 11:21:48 Procedure Notes None recorded. Medical Equipment None Reported. Allergies Allergen ID Allergen Name Allergen Category Reaction Reaction Severity Criticality Documentation Date Start Date Code Code System Note Provider Name and Address Organization Details Recorded Time 49660 prednison e medicatio n Not available Not available Not available 06/25/2022 8640 RxNorm Not Available [facility] 21:54:55 00073 doxycycli ne Not available Not available Not available Not available 06/25/2022 3640 RxNorm Not Available [facility] 21:54:55 47328 amoxicill in medicatio n Not available Not available Not available 06/25/2022 723 RxNorm Not Available [facility] 21:54:55 Medications Name Sig Start Date Stop [...] 07/09/2021 38.2 kg/m2 157.48 cm 97.7 [degF] 93381.37 g Not Available [facility] 06/25/2022 21:53:14 Date Recorded Body mass index (BMI) Body height Body temperature Body weight Provider Name and Address Organization Details Last Updated DateTime 09/26/2021 38.2 kg/m2 157.48 cm 97.4 [degF] 42430.73 g Not Available [facility] 06/25/2022 21:53:14 Date Recorded Body mass index (BMI) Body height Body temperature Body weight Provider Name and Address Organization Details Last Updated DateTime 02/27/2022 41.3 kg/m2 157.48 cm 97.7 [degF] 003576.1 6 g Not Available [facility] 06/25/2022 21:53:14 Date Recorded Body height Body mass index (BMI) Body weight Body temperature Provider Name and Address Organization Details Last Updated DateTime 07/17/2022 157.48 cm 41.2 kg/m2 654917.28 g 97.9 [degF] Zulema Castillo CMA OR [facility] ([facility]) 07/17/2022 15:58:16 Date Recorded Body height Body mass index (BMI) Body weight Body temperature Provider Name and Address Organization Details Last Updated DateTime 12/31/2022 157.48 cm 40.8 kg/m2 800356.82 g 98 [degF] Nicolle Nicole RN [facility] ([facility]) 12/31/2022 16:50:13 Social History Question Answer Notes LastModified by Organizat ion Details LastModified Time Tobacco Smoking Status Former Smoker QUIT IN 2017 Not Available [facility] 06/25/2022 21:52:56 What Is Your Level Of Alcohol Consumption? None [id number] Information not available 06/25/2022 In The 14 Days Before Symptom Onset, Have You Had Close Contact With A Laboratory-confirm ed COVID-19 While That Case Was Ill? No [id number] Information not available 06/25/2022 In The 14 Days Before Symptom Onset, Have You Had Close Contact With A Person Who Is Under Investigation For COVID-19 While That Person Was Ill? No [id number] Information not available 06/25/2022 Have You Recently Traveled Abroad? No [id number] Information not available 06/25/2022 Sex: Unknown Functional Status None recorded. Mental Status None recorded. Family History Nothing Reported Notes:CHILDREN HAVE ENT PROB LEMS Medical History Condition Response MRSA N SLEEP APNEA Y ALLERGIES/HAYFEVER N LUNG DISEASE/DISORDER N HISTORY OF DRUG ABUSE N INSOMNIA N RADIATION / CHEMOTHERAPY N COPD N HIGH CHOLESTEROL / HYPERLIPIDEMIA N HYPERTHYROIDISM N BLOOD DISEASES N EAR OR HEARING PROBLEMS N HYPOTHYROIDISM N SHINGLES N DEPRESSION (INCLUDING POST ) N HAVE YOU BEEN HOSPITALIZED OR SEEN IN [facility] ER IN THE PAST YEAR ? N STROKE/TIA N ULCERS N OBESITY Y ANEURYSM N HISTORY WITH COMPLICATIONS WITH ANESTHES IA ? Y NO SIGNIFICANT PAST MEDICAL HISTORY N USE OF BLOOD THINNERS N DIABETES, TYPE N PARATHYROID DISEASE N ENT N SEASONAL ALLERGIES N HEARTBURN / REFLUX Y HEPATITIS / LIVER DISEASE N SLEEP DISORDER N SEIZURES/EPILEPSY N HEADACHES/MIGRAINES Y CHF N PACEMAKER N DIZZINESS N AIDS/HIV N HEART DISEASE/HEART PROBLEMS N FRACTURES N HYPERTENSION N CANCER: SPECIFY N TOURETTE'S N BLOOD TRANSFUSION N ANEMIA/BLOOD DISORDER N ANESTHESIA COMPLICATIONS N CHRONIC EAR INFECTIONS Y TUBERCULOSIS N Gynecological HistoryNo gynecological history recorded. Obstetrics History GPAL:G 0 P 0 0 0 0 Past Encounters Encounter ID Performer Location Encounter Start Date Encounter Closed Date Diagnosis/Indication Diagnosis SNOMED-CT Code Diagnosis ICD10 Code Diagnosis Note [id number] [facility] [place] [address] [place] [address] 12/13/2020 00:00:00 12/13/2020 13:54:11 [id number] [facility] [place] [address] [place] [address] 12/18/2020 00:00:00 12/18/2020 16:16:10 [id number] [facility] [place] [address] [place] [address] 02/14/2021 00:00:00 02/14/2021 10:39:14 [id number] _ATHENA_M IGRATION_ DEFAULT_1 _1 , 03/29/2021 00:00:00 03/29/2021 11:12:42 [id number] [facility] [place] [address] [place] [address] 04/04/2021 00:00:00 04/04/2021 16:25:23 [id number] [facility] [place] [address] [place] [address] 07/09/2021 00:00:00 07/09/2021 10:14:29 [id number] [facility] [place] [address] [place] [address] 09/26/2021 00:00:00 09/26/2021 10:24:12 [id number] [facility] [place] [address] [place] [address] 02/27/2022 00:00:00 02/27/2022 15:14:37 [id number] MD [facility]ERRY [facility] [place] [address] [place] [address] 07/17/2022 15:52:44 07/17/2022 16:16:00 Chronic serous otitis media 19581435 H65.21 [id number] MD CHERRY [facility] [place] [address] [place] [address] 12/31/2022 16:32:46 12/31/2022 17:06:16 Chronic serous otitis media 04526971 H65.21 Health Concerns Section Related Observation LastModified by Organization Detai ls LastModified Time None Recorded Concern Status LastModified by Organization Details LastModified Time None Recorded Advance Directives Directive None Recorded Payers Encounter Date Sequence Insurance Name Policy Number Policy Hale Covered Member ID Hale Member ID Guarantor Name 07/17/2022 1 [place] [id number] Esequiel Sanders Karen [id number] Esequiel Sanders Karen 07/17/2022 2 [place] BLUE [facility] (EPO) [id number] Davie Jones [id number] Esequiel Sanders Karen 12/31/2022 1 [place] [id number] Esequieljessica Jones [id number] Esequiel M Karen Notes Date Note Type Note Provider Name and Address Organization Details Recorded Time 07/17/2022 text/html this patient reports that she has too many symptoms to list but the greatest seems to be right ear pain and a sensation of fluid. An audiogram 1 year ago demonstrated a type B tympanogram but otherwise nearly normal hearing Carlos Shetty MD [address] [place] [address] [place], [address], [employer] [facility] 07/17/2022 16:13:43 12/31/2022 text/html The patient reports a draining left ear. She has a PE tube. She was seen in urgent care and was given an antibiotic. Carlos Shetty MD [address] [place] [address] [address], [place], [address], [employer] [facility] 12/31/2022 17:03:27 OBGyn Episode No OBEpisode recorded.
== END 2024-08-18 15:33 | disposition home or self-care (01) ==
PROVIDERS: PCP Family Medicine; Visit Provider Family Medicine
DX: R10.9 Unspecified abdominal pain (principal); R16.2 Hepatomegaly with splenomegaly, not elsewhere classified; K57.90 Diverticulosis of intestine, part unspecified, without perforation or abscess without bleeding
CPT/HCPCS: 74176

== ENCOUNTER 2024-09-26 12:10 | Outpatient (CLI) | payer BC, SELFPAY ==
--- OUTSIDE RECORDS SUMMARY | 2024-09-26 12:14 | XMS_ITS | Data Portability ---
Author Organization [place] [facility], Main Office Address [address] [place] [address] Assessment No assessment recorded. Plan of Treatment Reminders Order Date Submit Date Provider Last Modified By Organization Details Last Modified Time Details Appointments None recorded. Lab None recorded. Referral None recorded. Procedures None recorded. Surgeries None recorded. Imaging audiogram + tympanogram 2022 023 [employer] [facility] ([facility] Scheduling, [address] [place] [address], [address], 3 16:42:49 Medication Orders cefdinir 300 mg capsule 2022 023 DENEEN [facility] #[id number], [address], [id number], 3 17:03:18 ofloxacin 0.3 % ear drops 2022 023 TABLE GROVE [facility] #[id number], [address], [id number], 3 17:03:13 Patient TargetsNo targets recorded. Patient InstructionsNo instructions recorded. Reason for Referral None Reported. Results Created Date Observation Date Name Description Value Unit Range Abnormal Flag Note LastModifiedBy Organization Detail LastModifiedTime 09/21/19 22 09/17/2021 audio gram + vikki sanders No observ ation record ed. [id number] [facility] [address] [facility], [place], [address], 06/25/2022 21:55:05 10/22/19 22 10/17/2021 CT, sinus es, w/o contr ast No observ ation record ed. [id number] Not Available 06/25/2022 21:55:05 10/25/19 22 10/17/2021 CT, sinus es, w/o contr ast No observ ation record ed. [id number] Not Available 06/25/2022 21:55:05 09/02/19 23 08/26/2022 XR, elbow , 3 or more view No observ ation record ed. [email or web address] Not Available 11/2022 11:21:48 Result Notes None recorded. Problems Name Problem SNOMED Code Status Onset Date Resolution Date Notes Provider Name and Address Organization Details Recorded Time Dysfunctio n of bilateral eustachian tubes 8337173484789 100 Active 2021 Not Available [facility] 3 21:53:40 Acute sinusitis 03548382 Active 2021 Not Available [facility] 3 21:53:40 Chronic otitis media 01168936 Active 2021 Not Available [facility] 3 21:53:40 Chronic otitis media 23704540 Active 2021 Not Available [facility] 3 21:53:40 Chronic sinusitis 95256354 Active 2021 Not Available [facility] 3 21:53:40 Sensorineu ral hearing loss 54005602 Active 2021 Not Available [facility] 3 21:53:40 Chronic serous otitis media 66190828 Active 2021 Not Available [facility] 3 21:53:40 Chronic serous otitis media 98273979 Active 2022 Carlos Shetty MD [address] [place] [address], [place], [address] , [facility] 3 16:13:26 Problem Notes None recorded. Procedures Surgical History Date Name Laterality Status Provider Name and Address Organization Details Recorded Time 01/19/20 SEPTOPLASTY (SURG) completed Not Available [facility] 06/25/2022 21:55:00 Myringotomy Tube Placement completed Not Available [facility] 06/25/2022 21:53:02 reduction of nasal turbinate completed Not Available [facility] 06/25/2022 21:53:02 inflation of Eustachian tube using balloon completed Not Available [facility] 06/25/2022 21:53:02 Imaging Results None recorded. Procedure Notes None recorded. Medical Equipment None Reported. Allergies Allergen ID Allergen Name Allergen Category Reaction Reaction Severity Criticality Documentation Date Start Date Code Code System Note Provider Name and Address Organization Details Recorded Time 55152 prednison e medicatio n Not available Not available Not available 06/25/2022 8640 RxNorm Not Available [facility] 3 21:54:55 57274 doxycycli ne Not available Not available Not available Not available 06/25/2022 3640 RxNorm Not Available [facility] 3 21:54:55 71722 amoxicill in medicatio n Not available Not available Not available 06/25/2022 723 RxNorm Not Available [facility] 3 21:54:55 Medications Name Sig Start Date Stop [...] Available [employer] Pen Needle 32 gauge x 32 USE DIRECTED WITH VICTOZA INJECTION S active [...] active Not Available Not Available Not Avai labees Vitaljen Date Recorded Body mass index (BMI) Body height Body temperature Body weight Provider Name and Address Organization Details Last Updated DateTime 07/09/2021 38.2 kg/m2 157.48 cm 97.7 [degF] 38376.37 g Not Available [facility] 06/25/2022 21:53:14 Date Recorded Body height Body mass index (BMI) Body weight Body temperature Provider Name and Address Organization Details Last Updated DateTime 07/17/2022 157.48 cm 41.2 kg/m2 484667.28 g 97.9 [degF] Zulema Castillo CMA [facility] 07/17/2022 15:58:16 Date Recorded Body mass index (BMI) Body height Body temperature Body weight Provider Name and Address Organization Details Last Updated DateTime 09/26/2021 38.2 kg/m2 157.48 cm 97.4 [degF] 23192.73 g Not Available [facility] 06/25/2022 21:53:14 Date Recorded Body height Body mass index (BMI) Body weight Body temperature Provider Name and Address Organization Details Last Updated DateTime 12/31/2022 157.48 cm 40.8 kg/m2 189964.82 g 98 [degF] Nicolle Nicole RN [facility] 12/31/2022 16:50:13 Date Recorded Body mass index (BMI) Body height Body temperature Body weight Provider Name and Address Organization Details Last Updated DateTime 02/27/2022 41.3 kg/m2 157.48 cm 97.7 [degF] 142197.1 6 g Not Available [facility] 06/25/2022 21:53:14 Social History Question Answer Notes LastModified by [employer] Details LastModified Time Tobacco Smoking Status Former Smoker QUIT IN 2016 Not Available [facility] 06/25/2022 21:52:56 In The 14 Days Before Symptom Onset, Have You Had Close Contact With A Laboratory-confirm ed COVID-19 While That Case Was Ill? No [id number] Information not available 06/25/2022 In The 14 Days Before Symptom Onset, Have You Had Close Contact With A Person Who Is Under Investigation For COVID-19 While That Person Was Ill? No [id number] Information not available 06/25/2022 Have You Recently Traveled Abroad? No [id number] Information not available 06/25/2022 Sex: Unknown Functional Status Question Answer Note LastModified by [employer] Details LastModified Time What is your level of alcohol consumption? None [id number] Information not available 06/25/2022 Mental Status None recorded. Family History Nothing Reported Notes:CHILDREN HAVE ENT PROB LEMS Medical History Condition Response MRSA N SLEEP APNEA Y ALLERGIES/HAYFEVER N LUNG DISEASE/DISORDER N INSOMNIA N HISTORY OF DRUG ABUSE N RADIATION / CHEMOTHERAPY N COPD N HIGH CHOLESTEROL / HYPERLIPIDEMIA N HYPERTHYROIDISM N BLOOD DISEASES N EAR OR HEARING PROBLEMS N HYPOTHYROIDISM N SHINGLES N DEPRESSION (INCLUDING POST ) N HAVE YOU BEEN HOSPITALIZED OR SEEN IN [facility] IN THE PAST YEAR ? N STROKE/TIA N ULCERS N OBESITY Y ANEURYSM N HISTORY WITH COMPLICATIONS WITH ANESTHES IA ? Y NO SIGNIFICANT PAST MEDICAL HISTORY N USE OF BLOOD THINNERS N DIABETES, TYPE N PARATHYROID DISEASE N ENT N SEASONAL ALLERGIES N HEARTBURN / REFLUX Y HEPATITIS / LIVER DISEASE N SLEEP DISORDER N HEADACHES/MIGRAINES Y SEIZURES/EPILEPSY N CHF N PACEMAKER N DIZZINESS N HEART DISEASE/HEART PROBLEMS N AIDS/HIV N FRACTURES N HYPERTENSION N CANCER: SPECIFY N TOURETTE'S N BLOOD TRANSFUSION N ANESTHESIA COMPLICATIONS N ANEMIA/BLOOD DISORDER N CHRONIC EAR INFECTIONS Y TUBERCULOSIS N Gynecological HistoryNo gynecological history recorded. Obstetrics History GPAL:G 0 P 0 0 0 0 Past Encounters Encounter ID Performer Location Encounter Start Date Encounter Closed Date Diagnosis/Indication Diagnosis SNOMED-CT Code Diagnosis ICD10 Code Diagnosis Note [id number] [facility] [address] [place] [address] 12/13/2020 00:00:00 12/13/2020 13:54:11 [id number] MD CHERRY [facility] [address] [place] [address] 12/18/2020 00:00:00 12/18/2020 16:16:10 [id number] MD VINCENT [facility] [address] [place] [address] 02/14/2021 00:00:00 02/14/2021 10:39:14 [id number] [facility] _ATHENA_M IGRATION_ DEFAULT_1 _1 , 03/29/2021 00:00:00 03/29/2021 11:12:42 [id number] [facility] [address] [place] [address] 04/04/2021 00:00:00 04/04/2021 16:25:23 [id number] [facility] [address] [place] [address] 07/09/2021 00:00:00 07/09/2021 10:14:29 [id number] MD CHERRY [facility] [address] [place] [address] 09/26/2021 00:00:00 09/26/2021 10:24:12 [id number] MD SHARON [facility] [address] [place] [address] 02/27/2022 00:00:00 02/27/2022 15:14:37 [id number] MD CHERRY [facility] [address] [place] [address] 07/17/2022 15:52:44 07/17/2022 16:16:00 Chronic serous otitis media 68904362 H65.21 [id number] MD VINCENT [facility] [address] [place] [address] 12/31/2022 16:32:46 12/31/2022 17:06:16 Chronic serous otitis media 52710932 H65.21 Health Concerns Section Related Observation LastModified by Organization Detai ls LastModified Time None Recorded Concern Status LastModified by Organization Details LastModified Time None Recorded Advance Directives Directive None Recorded Payers Encounter Date Sequence Insurance Name Policy Number Policy Hale Covered Member ID Hale Member ID Guarantor Name 07/17/2022 1 [place] [id number] Esequiel Jones [id number] Esequiel Jones 07/17/2022 2 [place]ELD [facility] (EPO) [id number] Davie Jones [id number] Esequiel Jones 12/31/2022 1 [place] [id number] Esequiel Jones [id number] Esequiel Jones Notes Date Note Type Note Provider Name and Address Organization Details Recorded Time 07/17/2022 text/html this patient reports that she has too many symptoms to list but the greatest seems to be right ear pain and a sensation of fluid. An audiogram 1 year ago demonstrated a type B tympanogram but otherwise nearly normal hearing Carlos Shetty MD [address], [place], [address], [employer]er [facility] [employer] 07/17/2022 16:13:43 12/31/2022 text/html The patient reports a draining left ear. She has a PE tube. She was seen in urgent care and was given an antibiotic. Carlos Shetty MD [address], [place], [address], [employer] [facility] [employer] 12/31/2022 17:03:27 OBGyn Episode No OBEpisode recorded.
--- OUTSIDE RECORDS SUMMARY | 2024-09-26 12:14 | XMS_ITS | Encounter Summary ---
Author Organization [facility] Address [address] [place], [place] [address] [address] Care Team Providers Care Machine Tech Name Role Phone Jean Carlos Covarrubias MD Primary Care Provider [phone] Jean Carlos Covarrubias MD Primary Care Provider [phone] Encounter Details Date Type Department Care Team (Late st Contact Info) Description 08/14/2020 Telephone [facility] [address] [place] [address] Magan Ortiz MD [address] [phone] Social History Tobacco Use Types Packs/Day Years [...] Care Team (Late st Contact Info) Description 11/10/2024 11:00 AM CDT Office Visit [facility] - [address] [address] 11/15/2024 1:[address] [facility] [address] [place] [address] Germaine Renteria MD [address] [place] [address] [address] [place] [address] 11/30/2024 3:00 PM CDT Office Visit [facility] - [address] [address] Antonio Moeller MD [address] [place] [address] 03/16/2025 3:00 PM SAP TRAINER Office Visit [facility] - [address] [address] Germaine Renteria MD [address] [place] [address] [address] [place] [address] 03/16/2025 3:30 PM SAP TRAINER Office Visit [facility] - [address] [address] Yariel Pina III, MD [facility] [address] [address] documented as of this encounter Goals Goal Patient Goal Type Associated Problems Recent Progress Patient-Stated? Author Medication Management General On track( 025 2:11 PM SAP TRAINER) Davie Lujan, RN Note: Expected end date: [...] Last Indicated Resolved Time COVID-19 Under Investigation 08/19/2024 08/19/2024 08/19/2024 3:12 PM CDT documented as of this encounter Care Teams Machine Tech Relationship Specialty Start Date End Date Jean Carlos Covarrubias MD [address] [place] [phone] PCP - General 02/12/18 04/21/23 Jean Carlos Covarrubias MD [address] [place] [address] PCP - General Family Medicine 04/22/23 documented as of this encounter
--- OUTSIDE RECORDS SUMMARY | 2024-09-26 12:14 | XMS_ITS | Encounter Summary ---
Author Organization [facility] Address [address] [place], [place] [address] [address] Care Team Providers Care Brass Pickler Name Role Phone Jean Carlos Covarrubias MD Primary Care Provider [phone] Jean Carlos Covarrubias MD Primary Care Provider [phone] Encounter Details Date Type Department Care Team (Late st Contact Info) Description 08/16/2020 Telephone [facility] [address] [place] [address] Magan Ortiz MD [address] [phone] Social History Tobacco Use Types Packs/Day Years [...] Description 11/10/2024 11:00 AM CDT Office Visit [facility] - [address] [address] 11/15/2024 1:30 PM CDT Appointment [facility] [address] [place] [address] Germaine Renteria MD [address] [place] [address] [address] [place] [address] 11/30/2024 3:00 PM CDT Office Visit [facility] - [address] [address] Antoino Moeller MD [address] [place] [phone] 03/16/2025 3:00 PM TRIMMING CASER Office Visit [facility] - [address] [address] Germaine Renteria MD [address] [place] [address] [address] [place] [address] 03/16/2025 3:30 PM TRIMMING CASER Office Visit [facility] - [address] [address] Yariel Pina III, MD [facility] [address] [address] documented as of this encounter Goals Goal Patient Goal Type Associated Problems Recent Progress Patient-Stated? Author Medication Management General On track( 025 2:11 PM TRIMMING CASER) Davie Lujan, RN Note: Expected end date: [...] documented as of this encounter Care Teams Brass Pickler Relationship Specialty Start Date End Date Jean Carlos Covarrubias MD [address] [place] [phone] PCP - General 02/12/18 04/21/23 Jean Carlos Covarrubias MD [address] [place] [address] PCP - General Family Medicine 04/22/23 documented as of this encounter
--- OUTSIDE RECORDS SUMMARY | 2024-09-26 12:14 | XMS_ITS | Clinical Summary ---
Author Organization [facility] Address [address] [place] [address] Care Team Providers Care Sewer Separation Designer Name Role Phone Jean Carlos Covarrubias MD Primary Care Provide r Fco Florez MD Unavailable [phone] Allergies Active Allergy Reactions Criticality Noted [...] 400 mg by mouth daily 4 Active HYDROcodone-acetam inophen (NORCO) 5-325 mg per tablet Take 1 tablet by mouth as needed 3 Active potassium &magnesium aspartate (MAGNESIUM, POTASSIUM ASPARTATE ORAL) Take 2 capsules by mouth daily Active traZODone (DESYREL) 50 mg tablet Take 1 tablet (50 mg total) by mouth as needed 4 Active ZOLMitriptan (ZOMIG) 5 mg tablet Take 1 tablet (5 mg total) by mouth as directed 4 Active ondansetron ODT (ZOFRAN-ODT) 4 mg disintegrating tablet Dissolve 1 tablet oral every 6 hours as needed for nausea or vomiting. 15 tablet [address] (CYMBALTA) 30 mg capsule Take 1 capsule (30 mg total) by mouth daily 30 capsule 5 025 Active pregabalin (LYRICA) 25 mg capsule TAKE 2 CAPSULES BY MOUTH EVERY MORNING, AND 1 CAPSULE EVERY EVENING 90 capsule [address] (CYMBALTA) 30 mg capsule Take 1 capsule (30 mg total) by mouth daily 90 capsule 1 4 025 Discontin ued(Reord er) pregabalin (LYRICA) 25 mg capsule TAKE 2 CAPSULES BY MOUTH EVERY MORNING, AND 1 CAPSULE EVERY EVENING 90 capsule 2 4 025 Discontin ued(Reord er) Active Problems Problem Noted Date Diagnosed Date [...] and with prolonged phone use in a CTS distribution. Recommend trial of sleeping in wrist [...] 01/20/2022 Assessment & Plan (05/19/2022 3:32 PM FIELD INSPECTOR): Will obtain xrays though favor muscular and [...] needed. Assessment & Plan (06/16/2023 3:54 PM FIELD INSPECTOR): Lately notes head/scalp pain and other intermittent aches/pains which primarily seem to correlate with working out. She has jointed a [employer] gym, discussed that while I am quite happy that she is exercising, generally would prefer a lower impact activity. However, as [employer] has her excited about going to the gym/is motivating her, she will continue with this though advised scaling when needed and to be sure to discuss her limitations with the personal health coach. Discussed that we could try increasing [...] needed. Assessment & Plan (06/30/2022 12:32 PM FIELD INSPECTOR): Widespread pain improved with the addition of [...] needed. Assessment & Plan (05/19/2022 3:32 PM FIELD INSPECTOR): At this time will discontinue Celexa and [...] Type Department Care Team Description 07/25/[address] [address] Coby Short from Last 3 [...] on file Legal Sex Female 1:50 AM FIELD INSPECTOR Gender Identity Not on file Sexual Orientation Not on file Obstetrics History Last Filed Vital Signs Vital Sign Reading Time Taken Comments Blood Pressure 126/66 03/21/2024 1:30 PM FIELD INSPECTOR Pulse 57 03/21/2024 1:30 PM FIELD INSPECTOR Temperature 36.8 C (98.2 F) 03/21/2024 5:12 AM FIELD INSPECTOR Respiratory Rate 12 03/21/2024 1:30 PM FIELD INSPECTOR Oxygen Saturation 95% 03/21/2024 1:30 PM FIELD INSPECTOR Inhaled Oxygen Concentration - - Weight 108.4 kg (239 lb) 03/21/2024 3:37 AM FIELD INSPECTOR Height 157.5 cm (5' 2) 03/21/2024 3:37 AM FIELD INSPECTOR Body Mass Index 43.71 03/21/2024 3:37 AM FIELD INSPECTOR Plan of Treatment Health Maintenance Due Date [...] patient's age to complete this topic Insurance [employer] [place] [employer] [facility] BLUE ACCESS MS [facility] BLUE ACCESS [place] Care Teams Sewer Separation Designer Relationship Specialty Start Date End Date Jean Carlos Covarrubias MD [address] [place] [address] PCP - General 08/03/16 Fco Florez MD [address] [place] [address] Consulting Physician Rheumatology 12/19/20
--- OUTSIDE RECORDS SUMMARY | 2024-09-26 12:14 | XMS_ITS | Encounter Summary ---
Author Organization [facility] Address [address] [place], [place] [address] [address] Care Team Providers Care Belt Changer Name Role Phone Jean Carlos Covarrubias MD Primary Care Provider [phone] Jean Carlos Covarrubias MD Primary Care Provider [phone] Encounter Details Date Type Department Care Team (Late Contact Info) Description 02/08/2018 Telephone [facility] [address] [place] [address] Felice oTrres Jr., MD [address] [place] [address] [address] [place], [place] [phone] Social History Tobacco Use Types Packs/Day Years [...] Encounters Date Type Department Care Team (Late Contact Info) Description 11/10/2024 11:00 AM CDT Office Visit [facility] - [place] [address] [facility], [place] [phone] 11/15/2024 1:30 PM CDT Appointment [facility] [address] [place] [address] Germaine Renteria MD [address] [place] [address] [address] [place] [phone] 11/30/2024 3:00 PM CDT Office Visit [facility] - [address] [phone] Antonio Moeller MD [address] [place] [phone] 03/16/2025 3:00 PM LACE MENDER Office Visit [facility] - [address] [phone] Germaine Renteria MD [address] [place] [address] [address] [place] [phone] 03/16/2025 3:30 PM LACE MENDER Office Visit [facility] - [address] [phone] Yariel Pina III, MD [address] [place] [address] [address] [place] [phone] documented as of this encounter Visit Diagnoses Not on filedocumented in this encounter Additional Health Concerns Infection Onset Date Last Indicated Resolved Time COVID-19 Under Investigation 06/08/2020 06/08/2020 06/08/2020 4:54 PM LACE MENDER COVID-19 Under Investigation 08/19/2024 08/19/2024 08/19/2024 3:12 PM CDT documented as of this encounter Care Teams Belt Changer Relationship Specialty Start Date End Date Jean Carlos Covarrubias MD [address] [place] [phone] PCP - General 02/12/18 04/21/23 Jean Carlos Covarrubias MD [address] [place] [address] PCP - General Family Medicine 04/22/23 documented as of this encounter
--- OUTSIDE RECORDS SUMMARY | 2024-09-26 12:14 | XMS_ITS | Encounter Summary ---
Author Organization [facility] Address [facility] [place] [address] Care Team Providers Care A Auxiliary Name Role Phone Jean Carlos Covarrubias MD Primary Care Provider [phone] Reason for Visit * Reason Comments Pain Abdominal Encounter Details Date Type Department Care Team (Late st Contact Info) Description 08/19/2024 Telephone [facility] - [address] [facility] [place] [address] Mandy Naik, SAM Pain Abdominal Social History Tobacco Use Types Packs/Day Years Used Date Smoking Tobacco: Former Cigarettes Q uit: 04/16/2017 Smokeless Tobacco: Never Alcohol Use Standard Drinks/Week Comments Not Currently 0 (1 standard drink = 0.6 oz pur e alcohol) occasional; holidays AUDIT-C Answer Date Recorded Q1: How often do you have a drink containing alc ohol? Monthly or less 08/19/2024 Q2: How many drinks containi ng alcohol do you have on a typical day when you are drinking? 1 or 2 08/19/2024 Q3: How often do you have si x or more drinks on one occasion? Never 08/19/2024 Overall Financial Resource Strain (CARDIA) Answe r Date Recorded How hard is it for you to pa y for the very basics like food, housing, medical care, and heating? Not hard at all 08/22/2024 [facility] [place] [facility] - Occupational Stress Questionnaire Answer Date Recorded Do you feel stress - tense, restless, nervous, or anxious, or unable to sleep at night because your mind is troubled all the time - these days? Not at all 08/22/2024 Hunger Vital Sign Answer Date Recorded Within the past 12 months, y ou worried that your food would run out before you got the money to buy more. Never true 08/23/19 25 Within the past 12 months, t he food you bought just didn't last and you didn't have money to get more. Never true 08/22/2024 PRAPARE - Transportation Answer Date Re corded In the past 12 months, has l ack of transportation kept you from medical appointments or from getting medications? No 07/27 In the past 12 months, has l ack of transportation kept you from meetings, work, or from getting things needed for daily living? No 08/22/2024 Housing Stability Vital Sign Answer Krishna e Recorded In the last 12 months, was t here a time when you were not able to pay the mortgage or rent on time? No 08/22/2024 In the past 12 months, how m any times have you moved where you were living? 1 08/22/2024 At any time in the past 12 m [facility], were you homeless or living in a senior living (including now)? No 08/22/2024 Comments No Sex and Gender Information Value Date Recorded Sex Assigned at Not on file Legal Sex Female 2:04 PM CDT Gender Identity Not on file Sexual Orientation Not on file documented as of this encounter Functional Status * Question Answer Date of Assessment Author Q1: How often do you have a drink containing alcohol? Monthly or less 08/19/2024 10:29 PM LAUROT Uzma Santana ra, RN Q2: How many drinks containing alcohol do you have on a typical day when you are drinking? 1 or 2 08/19/2024 10:29 PM LAUROT Shannon Santana RN Q3: How often do you have six or more drinks on one occasion? Never 08/19/2024 10:29 PM Shannon Murphy RN * Audit-C Score Answer Date of Assessment Author 1 08/19/2024 10:29 PM LAUROT Shannon Santana, SAM * Is person deaf or have serious [...] Nayla Landaverde RN documented in this encounter Miscellaneous Notes * Telephone Encounter - Mandy Naik RN - 08/19/2024 6:20 PM CDT Call received from pt to report RUQ pain. Recent CT abdomen reviewed with pt. With discussion of diverticulitis and severe pain, GI appt scheduled for October. RN recommendation to report to local ER. Pt reports she will report to [facility] or [place]. [email or web address] message sent to GI fellows. documented in this encounter Plan of Treatment Upcoming Encounters Date Type Department Care Team (Late st Contact Info) Description 11/10/2024 11:00 AM CDT Office Visit [facility] GI [address] [facility], [place] [address] 11/15/2024 1:30 PM CDT Appointment [facility] MRI [address] [place] [address] [place] [address] [place] [address] [address] [place] [address] [place] [address] 11/30/2024 3:00 PM CDT Office [place] [facility] [place] [address] [place] [address], [place] [phone] Antonio Moeller MD [address] [place] [phone] 03/16/2025 3:00 PM RAIL SPLITTER Office Visit [facility] - [address], [place] [phone] Germaine Renteria MD [address] [place] [address] [address] 1 [place] [phone] 03/16/2025 3:30 PM RAIL SPLITTER Office Visit [facility] - [address] [phone] Yariel Pina III, MD [address] [place] [address] 2L [place] [address] documented as of this encounter Goals Goal Patient Goal Type Associated Problems Recent Progress Patient-Stated? Author Medication Management General On track( 025 2:11 PM RAIL SPLITTER) No Davie Ramos, RN Note: Expected end date: ongoing Interventions: Take all medications as prescribed Let your doctor know right away about any changes in your medications Make sure to request a refill of your medication at least one week prior to your last dose Safety General On track( 025 2:11 PM RAIL SPLITTER) No Leticia Wells, RN Note: Expected end [...] documented as of this encounter Care Teams A Auxiliary Relationship Specialty Start Date End Date Jean Carlos Covarrubias MD [address] [place], [place] [phone] PCP - General Family Medicine 04/22/23 documented as of this encounter
--- OUTSIDE RECORDS SUMMARY | 2024-09-26 12:14 | XMS_ITS | Encounter Summary ---
Author Organization [facility] Address [address] [place], [place] [address]J[place] [address] Care Team Providers Care Porcelain Slusher Name Role Phone Jean Carlos Covarrubias MD Primary Care Provider [phone] Jean Carlos Covarrubias MD Primary Care Provider [phone] Reason for Visit * Reason Onset Date Comments Returned Call 11/15/2018 Encounter Details Date Type Department Care Team (Late st Contact Info) Description 11/15/2018 Telephone [facility] [address] [place] [address] Felice Torres Jr., MD [facility] N [facility] [address] [place] [address] Returned Call Social History Tobacco Use Types [...] that she is returning a call from [facility]. She would like a call back please. She stated it was regarding her follow up with Domitila. Pt callback# [phone] documented in this encounter Plan of Treatment Upcoming Encounters Date Type Department Care Team (Late st Contact Info) Description 11/10/2024 11:00 AM CDT Office Visit [facility] - [address] [address] 11/15/2024 1:30 PM CDT Appointment [facility] MRI [address] [place] [address] Germaine Renteria MD [address] [place] [address] [address] [place] [address] 11/30/2024 3:00 PM CDT Office Visit [facility] - GI [address] [place] [phone] Antonio Moeller MD [address] [place] [phone] 03/16/2025 3:00 PM CERAMIC COATER Office Visit [facility] - [address] [facility], [place] [phone] Germaine Renteria MD [address] [facility] [address] [place] [phone] 03/16/2025 3:30 PM CERAMIC COATER Office Visit [facility] - [address] [facility], [place] [phone] Yariel Pina III, MD [facility] 2L [place] [phone] documented as of this encounter Visit Diagnoses Not on filedocumented in this encounter Additional Health Concerns Infection Onset Date Last Indicated Resolved Time COVID-19 Under Investigation 06/08/2020 06/08/2020 06/08/2020 4:54 PM CERAMIC COATER COVID-19 Under Investigation 08/19/2024 08/19/2024 08/19/2024 3:12 PM CDT documented as of this encounter Care Teams Porcelain Slusher Relationship Specialty Start Date End Date Jean Carlos Covarrubias MD [address] [place] [phone] PCP - General 02/12/18 04/21/23 Jean Carlos Covarrubias MD [address] [place] [phone] PCP - General Family Medicine 04/22/23 documented as of this encounter
--- OUTSIDE RECORDS SUMMARY | 2024-09-26 12:14 | XMS_ITS | Encounter Summary ---
Author Organization [facility] Address [address] [place], [place] [address]J[place] [address] Care Team Providers Care Respiratory Therapy Technician Name Role Phone Jean Carlos Covarrubias MD Primary Care Provider [phone] Jean Carlos Covarrubias MD Primary Care Provider [phone] Reason for Visit * Reason Onset Date Comments Question 02/04/2018 Encounter Details Date Type Department Care Team (Late st Contact Info) Description 02/04/2018 Telephone [facility] [address] [place] [address] Felice Torres Jr., MD [facility] N [facility] [address] [place] [address] Question Social History Tobacco Use Types Packs/Day [...] she can come in. Please advise Cb: [phone] documented in this encounter Plan of Treatment Upcoming Encounters Date Type Department Care Team (Late st Contact Info) Description 11/10/2024 11:00 AM CDT Office Visit [facility] - [address] [address] 11/15/2024 1:30 PM CDT Appointment [facility] MRI [address] [place] [address] Germaine Renteria MD [address] [place] [address] [address] [place] [phone] 11/30/2024 3:00 PM CDT Office Visit [facility] - [address] [address] Antonio Moeller MD [address] [place] [phone] 03/16/2025 3:00 PM SUPERVISOR PROPELLANT CHARGE LOADING Office Visit [facility] - [address] [phone] Germaine Renteria MD [address] [place] [address] [address] [place] [address] 03/16/2025 3:30 PM SUPERVISOR [employer]OPELLANT [employer] LOADING Office Visit [facility] - [address], [place] [address] Yariel Pina III, MD [facility] [facility] 2[place] [phone] documented as of this encounter Visit Diagnoses Not on filedocumented in this encounter Additional Health Concerns Infection Onset Date Last Indicated Resolved Time COVID-19 Under Investigation 06/08/2020 06/08/2020 06/08/2020 4:54 PM SUPERVISOR [employer]OPE[employer] LOADING COVID-19 Under Investigation 08/19/2024 08/19/2024 08/19/2024 3:12 PM CDT documented as of this encounter Care Teams Respiratory Therapy Technician Relationship Specialty Start Date End Date Jean Carlos Covarrubias MD [address] [place] [phone] PCP - General 02/12/18 04/21/23 Jean Carlos Covarrubias MD [address] [place] [phone] PCP - General Family Medicine 04/22/23 documented as of this encounter
--- OUTSIDE RECORDS SUMMARY | 2024-09-26 12:14 | XMS_ITS | Encounter Summary ---
Author Organization [facility] Address [address] [place], [place] [address]J[place] [address] Care Team Providers Care Fur Liner Name Role Phone Jean Carlos Covarrubias MD Primary Care Provider [phone] Jean Carlos Covarrubias MD Primary Care Provider [phone]- [phone] Reason for Visit * Reason Onset Date Comments Scheduling 09/13/2020 Motorpaneer Echo Order Information Change 09/13/2020 Encounter Details Date Type Department Care Team (Late st Contact Info) Description 09/13/2020 Telephone [place] [address] [place] [address] Cee Desai Scheduling (Motorpaneer Echo); Order Information Change Social History Tobacco [...] PM CDT Re: PROC ECHO EXERCISE STRESS [[id number]] Please change this order to [id number] To be compatible with [facility] Scheduling... Also place Covid Test, in case patient needs it.. This is required prior to Echo.. Thanks! documented in this encounter Plan of Treatment Upcoming Encounters Date Type Department Care Team (Late st Contact Info) Description 11/10/2024 11:00 AM CDT Office Visit [facility] - GI [address] [facility], [place] [phone] 11/15/2024 1:30 PM CDT Appointment [facility] MRI [address] [place] [address] [place] [address] [place] [address] [address] [place] [phone] 11/30/2024 3:00 PM CDT Office Visit [facility] - GI [address] [facility], [place] [phone] Antonio Moeller MD [address] [place] [phone] 03/16/2025 3:00 PM MANAGER CENTER Office Visit [facility] - [address], [place] [phone] Germaine Renteria MD [address] [place] [address] [address] [place] [phone] 03/16/2025 3:30 PM MANAGER CENTER Office Visit [facility] - [address], [place] [address] Yariel Pina III, MD [address] [place] [address] [address] [place] [phone] documented as of this encounter Goals Goal Patient Goal Type Associated Problems Recent Progress Patient-Stated? Author Medication Management General On track( 025 2:11 PM MANAGER CENTER) Davie Lujan, RN Note: Expected end date: [...] documented as of this encounter Care Teams Fur Liner Relationship Specialty Start Date End Date Jean Carlos Covarrubias MD [address] [place] [phone] PCP - General 02/12/18 04/21/23 Jean Carlos Covarrubias MD [address] [place] [phone] PCP - General Family Medicine 04/22/23 documented as of this encounter
--- OUTSIDE RECORDS SUMMARY | 2024-09-26 12:15 | XMS_ITS | Clinical Summary ---
Author Organization [facility] Shahab P. Tabatabai, Broker Address [address] [place] [address] Care Team Providers Care Delivery Motorcycle Driver Name Role Phone Jean Carlos Covarrubias MD Primary Care Provider [phone] Source Comments [facility] Shahab P. Tabatabai, Broker,non-owned Affiliates and Associated Physician Practices is amultiple site organization consisting of ambulatory clinics and hospital sitesin [place], [place], [place] and [place]. This disclosure is being madepursuant to the Care Everywhere program and may not contain all information available regarding this patient. Last updated 18.[facility] Shahab P. Tabatabai, Broker Allergies Active Allergy Reactions Criticality Noted Date [...] (CYMBALTA) 30 MG capsule 08/08/19 22 Active pregabalin (Lyrica) 25 MG capsule Take 1 (one) capsule by mouth every morning 04/06/20 23 Active ondansetron (Zofran) 4 MG tablet Take 1 (one) tablet by mouth every 8 hours as needed Active fluticasone propionate (Flonase) 50 MCG/ACT nasal spray Holt 2 (two) sprays into each nostril once daily 48 g 4 09/07/19 24 Active Additional Information Patient not taking.Reported on 09/08/2024 ZOLMitriptan, disintegrating, (Zomig ZMT) 5 MG tablet Take 1 (one) tablet by mouth as needed Maximum daily dose: 10 mg/24 hours 9 tablet 6 10/05/19 24 Active famotidine (Pepcid) 20 MG tabletIndication s:Laryngopharyng eal reflux (LPR) Take 1 (one) tablet by mouth 2 times daily 120 tablet 3 12/07/19 24 Active Additional Information Patient not taking.Reported on 09/08/2024 ciprofloxacin-de xAMETHasone (Ciprodex) 0.3-0.1 % otic suspensionIndica tions:OME (otitis media with effusion), left,Myringotomy tube status,Chronic diffuse otitis externa of both ears Apply 4 drops to the affected ear twice daily x 7 days 10 mL 06/24/19 25 Active metoprolol succinate XL 24hr (Toprol XL) 50 MG tablet TAKE 1 TABLET BY MOUTH DAILY 90 tablet 3 07/20/19 25 Active senna-docusate (Senokot-S) 8.6-50 MG tablet Take 1 (one) tablet by mouth once daily 30 tablet 1 08/24/19 25 Active simethicone (Mylicon) 80 MG chew tablet Take 1 (one) tablet by mouth 4 times daily as needed for Gas Pain 08/24/19 25 Active acetaminophen (Tylenol) 500 MG tablet Take 1 (one) tablet by mouth every 6 hours as needed for Fever, Pain or Headache Maximum allowable Acetaminophen amount = 4 Grams (4000 mg) / 24 hours. 08/24/19 25 Active Magnesium-Potass ium 70-99 MG CAPS Take 2 capsules by mouth once daily 025 Discontinu ed(List Clean-Up) nitrofurantoin monohyd macro crystals (Macrobid) 100 MG capsule Take 1 (one) capsule by mouth 2 times daily with morning and evening meal 10 capsule 06/17/19 025 Discontinu ed(List Clean-Up) phenazopyridine (Pyridium) 200 MG tablet Take 1 (one) tablet by mouth 3 times daily as needed 12 tablet 06/17/19 25 Discontinu ed(List Clean-Up) polyethylene glycol 3350 (Miralax) 17 g packet Take 17 (seventeen) g by mouth once daily 30 packet 08/24/19 Discontinu ed(List Clean-Up) polyethylene glycol 3350 (Miralax) 17 GM/SCOOP powderIndication s:Constipation, unspecified constipation type Take 17 (seventeen) g by mouth once daily as needed for Constipation 08/24/19 Additional Information Patient not taking.Reported on 09/08/2024 ciprofloxacin (Cipro) 500 MG tablet Take 1 (one) tablet by mouth 2 times daily for 9 days 18 tablet 08/24/19 Active Problems Problem Noted Date Diagnosed Date MDD (major depressive disorder) 08/22/2024 Gastroesophageal reflux disease without esophagi tis 08/22/2024 Assessment & Plan (08/22/2024 3:23 PM CDT): - pepcid BID Primary hypertension 08/22/2024 Assessment & Plan (08/22/2024 3:23 PM CDT): - toprol 50 mg daily Acute cystitis without hematuria 08/20/2024 Assessment & Plan (08/21/2024 9:12 AM CDT): UA with 11-20 squamous epithelium so likely contaminated - Already on Rocephin Assessment & Plan (08/20/2024 7:15 AM CDT): - UA: Leukocyte 500, WBC 11-20, turbid urine PLAN - Rocephin daily Assessment & Plan (08/20/2024 1:24 AM CDT): - UA: Leukocyte 500, WBC 11-20, turbid urine PLAN - Rocephin daily Acute diverticulitis 08/19/2024 Assessment & Plan (08/22/2024 3:23 PM CDT): #Possible sigmoid diverticulitis #RUQ pain? #Hx cholecystectomy Admitted with acute on chronic abdominal pain with CT showing early signs of sigmoid diverticulitis On exam, the most predominant pain is RUQ which is chronic and previously discussed in GI clinic (already has history of cholecystectomy) Abdominal pain likely not most accurate marker for improvement of possible diverticulitis as location of her pain is on the opposite side of the CT findings which were subtle to begin with - Full liquids today, advance as tolerated - Continue Rocephin and Flagyl, likely transition to PO tomorrow and discharge - Multimodal pain control, increased tylenol dosing - Bowel regimen with senna, miralax - Would likely benefit from initiation of neuromodulator outpatient for IBS related pain vs disorder of brain-gut dysfunction (DBGI) which can be further discussed in GI clinic scheduled 09/08/24 Assessment & Plan (08/21/2024 9:12 AM CDT): #Possible sigmoid diverticulitis #RUQ pain #Hx cholecystectomy Admitted with acute on chronic abdominal pain with CT showing early signs of sigmoid diverticulitis On exam, the most predominant pain is RUQ which is chronic and previously discussed in GI clinic (already has history of cholecystectomy) Abdominal pain likely not most accurate marker for improvement of possible diverticulitis as location of her pain is on the opposite side of the CT findings which were subtle to begin with - Clear liquids today, advance as tolerated - Continue Rocephin and Flagyl, likely transition to PO tomorrow and discharge - Would likely benefit from initiation of neuromodulator outpatient for IBS related pain vs disorder of brain-gut dysfunction (DBGI) which can be further discussed in GI clinic scheduled 09/08/24 Assessment & Plan (08/20/2024 9:02 AM CDT): - CMP and CBC unremarkable - CT Redemonstrated subcentimeter liver lesions, better evaluated in the prior CT abdomen multi phase to 07/08/2024. Diverticulosis of the sigmoid colon with mild fat stranding adjacent in the left lower abdomen/pelvic without evidence of fluid collection or free air, this could represent developing early acute diverticulitis. PLAN Will keep patient NPO Begin D5LR as patient is NPO Transition Flagyl to IV to minimize nausea. Continue Rocephin Hold AM Metoprolol as patient was bradycardic. Assessment & Plan (08/20/2024 1:24 AM CDT): - CMP and CBC unremarkable - CT Redemonstrated subcentimeter liver lesions, better evaluated in the prior CT abdomen multi phase to 07/08/2024. Diverticulosis of the sigmoid colon with mild fat stranding adjacent in the left lower abdomen/pelvic without evidence of fluid collection or free air, this could represent developing early acute diverticulitis. PLAN - Flagyl po + Rocephin started - Pain management - NPO - IVF Metabolic dysfunction-associ ated steatotic liver disease (MASLD) 05/12/2024 Overview (05/12/2024): 05/12/24 Fibroscan CAP 333, LSM 6.5 kPa Assessment & Plan (08/22/2024 3:23 PM CDT): - outpatient GI follow up Fall 12/15/2023 Fibromyalgia 01/14/2021 Overview (07/01/2021): Labs [...] months to reassess . Assessment & Plan (08/22/2024 3:23 PM CDT): - duloxetine at bedtime - pregabalin 25 mg daily PVC (premature ventricular contraction) 01/05/20 20 Assessment & Plan (05/17/2021 11:56 AM MONOTYPE MECHANIC): Evaluated by EP in the past. Very [...] Plan (08/27/2020 1:54 PM CDT): Per Dr. RoperEpisodes of rare PACs seen on event monitor [...] 01/05/2020 Assessment & Plan (05/17/2021 12:09 PM MONOTYPE MECHANIC): Continues to have atypical features. 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 # followup in 3 months Irritable bowel syndrome with constipation 05/23 Assessment & Plan (08/22/2024 3:23 PM CDT): #Possible sigmoid diverticulitis #RUQ pain? #Hx cholecystectomy Admitted with acute on chronic abdominal pain with CT showing early signs of sigmoid diverticulitis On exam, the most predominant pain is RUQ which is chronic and previously discussed in GI clinic (already has history of cholecystectomy) Abdominal pain likely not most accurate marker for improvement of possible diverticulitis as location of her pain is on the opposite side of the CT findings which were subtle to begin with - Full liquids today, advance as tolerated - Continue Rocephin and Flagyl, likely transition to PO tomorrow and discharge - Multimodal pain control, increased tylenol dosing - Bowel regimen with senna, miralax - Would likely benefit from initiation of neuromodulator outpatient for IBS related pain vs disorder of brain-gut dysfunction (DBGI) which can be further discussed in GI clinic scheduled 09/08/24 Interstitial cystitis 12/02/2018 S/P laparoscopic procedure 10/04/2018 [...] Encounters Date Type Department Care Team Description 09/08/2024 12:30 PM CDT Office Visit [facility] GI [address] [place] [address], [place] [phone] Germaine Renteria MD RUQ discomfort (Primary Dx); Chronic abdominal pain; BMI 38.0-38.9,adult; Metabolic dysfunction-associat ed steatotic liver disease (MASLD); Liver lesion; Elevated liver enzymes; Abnormal liver diagnostic imaging; History of cholecystectomy; Adenomatous polyp of colon, unspecified part of colon 09/08/2024 Travel 08/25/2024 Telephone [facility] [address] [facility], [place] [address] Radha Polanco, SAM General 08/19/2024 7:47 PM CDT - 08/23/2024 2:55 PM CDT Hospital Encounter [facility] [address] [place] [phone] Eddie Perdomo MD Gandhi, Avi, MD Nguyen, Christopher, DO Bhalla, Kishley, MD Elewa, Usama, MD Nephrology Discharge Disposition: Home or Self Care 08/19/2024 Telephone [facility] [address] [place] [phone] Mandy Naik, SAM Pain Abdominal 08/19/2024 Travel 07/19/2024 Refill [facility] - Cardiology [address] [facility] [place] [address] [place] [address] Andrew Roper MD Refill Request 07/08/2024 9:00 AM CDT - 07/08/2024 11:59 PM CDT Hospital Encounter [facility] [address] [place] [phone] Germaine Renteria MD Discharge Disposition: Home or Self Care 07/08/2024 Travel from Last 3 Months Immunizations Immunization [...] AFLURIA QUADRIVALENT; 6MO+), 0.5 ML (IIV4) 02/20/2022,04/24/2020 INFLUENZA VACCINE, TRIV. (FL UZONE; FLULAVAL; FLUARIX; AFLURIA TRIVALENT; 6MO+), 0.5 ML (IIV3) 08/20/2024 Family History Medical History Relation Name Comments [...] and heating? Not hard at all 08/22/2024 [facility] of Occupat ional Health - Occupational Stress [...] any time in the past 12 m [facility], were you homeless or living in a penitentiary (including now)? No 08/22/2024 Comments No Sex and Gender Information Value Date Recorded Sex Assigned at Not on file Legal Sex Female 2:04 PM CDT Gender Identity Not on file Sexual Orientation Not on file Last Filed Vital Signs Vital Sign Reading Time Taken Comments Blood Pressure 144/84 09/08/2024 1:12 PM CDT Pulse 63 09/08/2024 1:12 PM CDT Temperature 36.5 C (97.7 F) 08/23/2024 5:14 AM CDT Respiratory Rate 18 08/23/2024 5:14 AM CDT Oxygen Saturation 99% 09/08/2024 1:12 PM CDT Inhaled Oxygen Concentration - - Weight 97.3 kg (214 lb 9.6 oz) 09/08/2024 1:12 P M CDT Height 160 cm (5' 3) 09/08/2024 1:12 PM CDT Body Mass Index 38.01 09/08/2024 1:12 PM CDT Plan of Treatment Upcoming Encounters Date Type Department Care Team (Late st Contact Info) Description 11/10/2024 11:00 AM CDT Office Visit [facility] - [facility] [address] [facility], [place] [phone] 11/15/2024 1:30 PM CDT Appointment [facility] [address] [place] [phone] Germaine Renteria MD [address] [facility] [address] [place] [phone] 11/30/2024 3:00 PM CDT Office Visit [facility] - GI [address] [facility], [facility] [place] [phone] Antonio Moeller MD [facility] [place] [phone] 03/16/2025 3:00 PM MONOTYPE MECHANIC Office Visit [facility] - [address], [place] [phone] [place] [address] [place] [address] [address] [place] [address] 03/16/2025 3:30 PM MONOTYPE MECHANIC Office Visit [facility] - [address], [place] [address] Yariel Pina III, MD [address] [place] [address] [address] [phone] Health Maintenance Due Date Last Done Comments MAMMOGRAM 1982 PAP SMEAR 1982 HIV SCREENING 1997 DTAP/TDAP/TD VACCINES (1 - Tdap) 2001 HEPATITIS B VACCINE (1 of 3 - 19+ 3-dose series) 2001 COVID-19 VACCINE ( - season) 2023 12/17/2020, 11/19/2020 DEPRESSION SCREENING 04/27/2024 SCREENING FOR DIABETES 08/22/2027 , 08/19/2024, 08/19/2024, Additional history exists LIPID TESTING 11/22/2028 11/23/2023, 12/04/2021 ZOSTER VACCINE (1 of 2) 2032 HEPATITIS C SCREENING Completed 10/16/2022 , 12/21/2018, 11/26/2017 INFLUENZA VACCINE Completed 08/20/2024, , 02/20/2022, Additional history exists HIB VACCINE Aged Out No longer eligi [...] Medication Management General On track( 2:11 PM MONOTYPE MECHANIC) No Davie Ramos, RN Note: Expected end date: ongoing Interventions: Take all medications as prescribed Let your doctor know right away about any changes in your medications Make sure to request a refill of your medication at least one week prior to your last dose Safety General On track( 025 2:11 PM MONOTYPE MECHANIC) No Leticia Wells RN Note: Expected end date: ONGOING Interventions: Keep personal items within easy reach Use some light at night in your room Keep walking paths clutter free and clear Medical Devices Implanted Type Area Marshmallow Machine Operator Device Identifier Shelf Expiration Date Model / Serial / Lot Mesh Srg Ventralight St Sepra 8x6in - Sn/A Implanted:Qty: 1 on 08/28/2020 by Magan Ortiz MD at [facility] N/A: Abdomen [employer] 03/24/2022 [id number] / N/A / [id number] Description:INCISIONAL HERNI A NEAR UMBILICUS Sys Fx 37cm Cpsr Str Ss Peek Perm Hndl - Sn/A Implanted:Qty: 1 on 08/28/2020 by Magan Ortiz MD at [facility] N/A: Abdomen [employer] 04/23/2022 [id number] / N/A / [id number] Procedures Procedure Name Priority Date/Time Associated Diagnosis Comments CBC W AUTO DIFFERENTIAL Routine 08/22/2024 7:41 PM CDT FERRITIN Routine 08/22/2024 7:00 AM CDT IRON + TRANSFERRIN PANEL Routine 08/22/2024 7:00 AM CDT CBC W/O DIFFERENTIAL Routine 08/21/2024 3:29 AM CDT Acute diverticulitis BASIC METABOLIC PANEL (CALCIUM TOTAL) Routine 08/21/2024 3:29 AM CDT Acute diverticulitis LIPASE BLOOD STAT 08/19/2024 9:01 PM CDT COMPREHENSIVE METABOLIC PANEL STAT 08/19/2024 9:01 PM CDT CBC W AUTO DIFFERENTIAL STAT 08/19/2024 9:[address] ABDOMEN PELVIS W CONTRAST STAT 08/19/2024 3:39 PM CDT RUQ pain URINALYSIS REFLEX MICROSCOPIC REFLEX CULTURE STAT 08/19/2024 2:25 PM CDT CULTURE URINE STAT 08/19/2024 2:25 PM CDT SARS-COV-2 (COVID-19)+INFLU A+B PCR RAPID STAT 08/19/2024 2:21 PM CDT HCG BETA BLOOD QUANTITATIVE STAT 08/19/2024 2:20 PM CDT COMPREHENSIVE METABOLIC PANEL STAT 08/19/2024 2:20 PM CDT CBC W AUTO DIFFERENTIAL STAT 08/19/2024 2:[address] ABDOMEN MULTI PHASE W CONT Routine 07/08/2024 9:42 AM CDT Metabolic dysfunction-associate d steatotic liver disease (MASLD) LIPID PROFILE Routine 11/23/2023 12:28 PM CDT Chest pain, unspecified type Prediabetes from Last 3 Months or Most Recently Relevant to Health Maintenance Results * (ABNORMAL) CBC W AUTO DIFFERENTIAL (08/22/2024 7:41 PM CDT) Only the most recent of3 resultswithin the time period is included. WBC 7.9 4.0 - 10.7 x10E9/L 08/22/2024 9:12 PM [facility] RBC Count 4.40 3.90 - 5.20 x10E12/L 08/22/2024 9:12 PM [facility] Hemoglobin 11.1(L) 11.9 - 15.8 g/dL 08/22/2024 9:12 PM [facility] Hematocrit 34.5(L) 34.8 - 46.1 % 08/22/2024 9:12 PM [facility] MCV 78.4(L) 80.0 - 98.0 fL 08/22/2024 9:12 PM [facility] MCH 25.2(L) 26.7 - 33.6 pg 08/22/2024 9:12 PM [facility] MCHC 32.2 31.7 - 36.3 g/dL 08/22/2024 9:12 PM [facility] RDW-CV 13.5 11.3 - 14.8 % 08/22/2024 9:12 PM [facility] Platelet Count 312 150 - 420 x10E9/L 08/22/2024 9:12 PM [facility] MPV 11.1 7.8 - 11.4 fL 08/22/2024 9:12 PM [facility] Neutrophil % 69.0 41.0 - 74.0 % 08/22/2024 9:12 PM [facility] Lymphocyte % 24.7 17.0 - 47.0 % 08/22/2024 9:12 PM [facility] Monocyte % 4.4 3.0 - 11.0 % 08/22/2024 9:12 PM [facility] Eosinophil % 1.4 0.0 - 7.0 % 08/22/2024 9:12 PM [facility] Basophil % 0.0 0.0 - 1.6 % 08/22/2024 9:12 PM [facility] Immature Granulocytes % 0.5 0.0 - 1.0 % 08/22/2024 9:12 PM [facility] Neutrophil Absolute 5.46 1.60 - 7.50 x10E9/L 08/22/2024 9:12 PM CDT [facility] Lymphocyte Absolute 1.95 1.00 - 4.40 x10E9/L 08/22/2024 9:12 PM T [facility] Monocyte Absolute 0.35 0.15 - 1.00 x10E9/L 08/22/2024 9:12 PM CDT [facility] Eosinophil Absolute 0.11 0.00 - 0.60 x10E9/L 08/22/2024 9:12 PM T [facility] Basophil Absolute 0.00 0.00 - 0.13 x10E9/L 08/22/2024 9:12 PM [facility] Blood BLOOD SPECIMEN / Unknown Lab Venipuncture / Unknown 08/22/2024 7:41 PM CDT 08/22/2024 9:06 PM CDT us Felton Hayes MD LAB - HEMATOLOGY ORDERABLES Fi nal Result [address] [address], [facility] [phone] * (ABNORMAL) IRON + TRANSFERRIN PANEL (08/22/2024 7:00 AM CDT) Iron 42 40 - 150 ug/dL 08/22/2024 10:42 AM [facility] Transferrin 186 174 - 382 mg/dL 08/22/2024 10:42 AM T [facility] Transferrin Saturation % 18 16 - 50 % 08/22/2024 10:42 AM T [facility] TIBC Calculated 233(L) 240 - 450 ug/dL 08/22/2024 10:42 AM T [facility] Blood BLOOD SPECIMEN / Unknown Lab Venipuncture / Unknown 08/22/2024 7:00 AM CDT 08/22/2024 9:18 AM CDT us Alejandro Fish DO LAB - CHEMISTRY ORDERABLES Final Result [address] [address], [facility] [phone] * FERRITIN (08/22/2024 7:00 AM CDT) Pathologist [facility] Ferritin 133 13 - 204 ng/mL 08/22/2024 10:39 AM [facility] Blood BLOOD SPECIMEN / Unknown Lab Venipuncture / Unknown 08/22/2024 7:00 AM CDT 08/22/2024 9:18 AM CDT Alejandro Fish DO LAB - CHEMISTRY ORDERABLES Final Result [facility] [address] [place] [address], [facility] [phone] * (ABNORMAL) CBC W/O DIFFERENTIAL (08/21/2024 3:29 AM CDT) Pathologist [facility] WBC 6.3 4.0 - 10.7 x10E9/L 08/21/2024 5:29 AM [facility] RBC Count 4.23 3.90 - 5.20 x10E12/L 08/21/2024 5:29 AM [facility] Hemoglobin 10.7(L) 11.9 - 15.8 g/dL 08/21/2024 5:29 AM [facility] Hematocrit 33.0(L) 34.8 - 46.1 % 08/21/2024 5:29 AM [facility] MCV 78.0(L) 80.0 - 98.0 fL 08/21/2024 5:29 AM [facility] MCH 25.3(L) 26.7 - 33.6 pg 08/21/2024 5:29 AM [facility] MCHC 32.4 31.7 - 36.3 g/dL 08/21/2024 5:29 AM [facility] RDW-CV 13.3 11.3 - 14.8 % 08/21/2024 5:29 AM [facility] Platelet Count 246 150 - 420 x10E9/L 08/21/2024 5:29 AM [facility] MPV 11.0 7.8 - 11.4 fL 08/21/2024 5:29 AM [facility] Blood BLOOD SPECIMEN / Unknown Lab Venipuncture / Unknown 08/21/2024 3:29 AM CDT 08/21/2024 5:25 AM CDT Hola Chavez AQUACULTURE WORKER-COSMETIC SALES ASSISTANT LAB - HEMATOLOGY OR DERABLES Final Result [facility] [address] [place] [address], [facility] [phone] * (ABNORMAL) BASIC METABOLIC PANEL (CALCIUM TOTAL) (08/21/2024 3:29 AM CDT) BUN 9 7 - 26 mg/dL 08/21/2024 6:03 AM [facility] Creatinine 0.70 0.56 - 0.96 mg/dL 08/21/2024 6:03 AM [facility] Sodium 140 136 - 145 mmol/L 08/21/2024 6:03 AM [facility] Potassium 3.8 3.5 - 4.5 mmol/L 08/21/2024 6:03 AM [facility] Chloride 109(H) 98 - 107 mmol/L 08/21/2024 6:03 AM [facility] CO2 26 22 - 29 mmol/L 08/21/2024 6:03 AM [facility] Glucose 108(H) 70 - 99 mg/dL 08/21/2024 6:03 AM [facility] Calcium 8.8 8.4 - 10.2 mg/dL 08/21/2024 6:03 AM [facility] Anion Gap 5(L) 6 - 16 08/21/2024 6:03 AM [facility] BUN/Creatinine Ratio 13 7 - 23 08/21/2024 6:03 AM [facility] Osmolality Calculated 289 275 - 295 mOsm/kg 08/21/2024 6:03 AM [facility] eGFR by CKD-EPI >90 >=90 mL/min/1.7 3 m2 08/21/2024 6:03 AM [facility] Blood BLOOD SPECIMEN / Unknown Lab Venipuncture / Unknown 08/21/2024 3:29 AM CDT 08/21/2024 5:25 AM CDT Hola Chavez AQUACULTURE WORKER-COSMETIC SALES ASSISTANT LAB - CHEMISTRY ORD ERABLES Final Result [facility] [address] [place] [address], [facility] [phone] * (ABNORMAL) COMPREHENSIVE METABOLIC PANEL (08/19/2024 9:01 PM CDT) Only the most recent of2 resultswithin the time period is included. BUN 17 7 - 26 mg/dL 08/19/2024 9:40 PM [facility] Creatinine 0.71 0.56 - 0.96 mg/dL 08/19/2024 9:40 PM [facility] Sodium 139 136 - 145 mmol/L 08/19/2024 9:40 PM [facility] Potassium 4.2 3.5 - 4.5 mmol/L 08/19/2024 9:40 PM [facility] Chloride 107 98 - 107 mmol/L 08/19/2024 9:40 PM [facility] CO2 24 22 - 29 mmol/L 08/19/2024 9:40 PM [facility] Glucose 82 70 - 99 mg/dL 08/19/2024 9:40 PM [facility] Calcium 9.3 8.4 - 10.2 mg/dL 08/19/2024 9:40 PM [facility] Protein Total 7.4 6.0 - 8.3 g/dL 08/19/2024 9:40 PM [facility] Albumin 3.7 3.4 - 5.0 g/dL 08/19/2024 9:40 PM [facility] Bilirubin Total 0.4 0.2 - 1.2 mg/dL 08/19/2024 9:40 PM [facility] Alkaline Phosphatase 145 40 - 150 U/L 08/19/2024 9:40 PM [facility] ALT 25 5 - 55 U/L 08/19/2024 9:40 PM CDT [facility] AST 17 5 - 34 U/L 08/19/2024 9:40 PM T [facility] Anion Gap 8 6 - 16 08/19/2024 9:40 PM T [facility] BUN/Creatinine Ratio 24(H) 7 - 23 08/19/2024 9:40 PM T [facility] Osmolality Calculated 289 275 - 295 mOsm/kg 08/19/2024 9:40 PM T [facility] Albumin/Globulin Ratio 1.0(L) 1.1 - 2.3 08/19/2024 9:40 PM T [facility] eGFR by CKD-EPI >90 >=90 mL/min/1.7 3 m2 08/19/2024 9:40 PM [facility] Blood BLOOD SPECIMEN / Unknown Venipuncture / Unknown 08/19/2024 9:01 PM CDT 08/19/2024 9:05 PM CDT Eddie Perdomo MD LAB - CHEMISTRY ORDERA BLES Final Result [address] [address], [place] [phone] * LIPASE BLOOD (08/19/2024 9:01 PM CDT) Pathologist [facility] Lipase 16 8 - 78 U/L 08/19/2024 9:40 PM CDT [facility] Blood BLOOD SPECIMEN / Unknown Venipuncture / Unknown 08/19/2024 9:01 PM CDT 08/19/2024 9:05 PM CDT Narrative [facility] - 08/19/2024 9:40 PM CDT Lipase results from the [employer] Al[employer] analyzer may not be comparable with other methodologies. Eddie Perdomo MD LAB - CHEMISTRY ORDERA BLES Final Result [facility] [address] [place] [address], [place] [phone] * CT ABDOMEN PELVIS W CONTRAST (08/19/2024 3:39 PM CDT) Anatomical Region Laterality Modality Abdomen, Pelvis Computed Tomogra phy 08/19/2024 3:42 PM CDT Impressions 08/19/2024 3:59 PM CDT Impression: 1.Redemonstrated subcentimeter liver lesions, better evaluated in the prior CT abdomen multi phase to 07/08/2024. 2.Diverticulosis of the sigmoid colon with mild fat stranding adjacent in the left lower abdomen/pelvic without evidence of fluid collection or free air, this could represent developing early acute diverticulitis. > Dictated by Nallely Keys MD (vice president pharmacy). I, Jose Hein have personally reviewed and interpreted this examination/study. > Interpreting Provider: Jose Hein on 08/19/2024 3:59 PM Narrative 08/19/2024 3:59 PM CDT PROCEDURE: CT ABDOMEN PELVIS W CONTRAST, DATE/TIME OF EXAM: 08/19/2024 3:39 PM, LOCATION [facility] INDICATION: R10.11: RUQ pain ADDITIONAL CLINICAL INFORMATION: Ordering Provider Reason For Exam: ro liver etiology vs other Technologist Note: Additional: COMPARISON: CT abdomen and pelvis dated 07/08/2024 TECHNIQUE: CT of the abdomen and pelvis was performed following the uneventful administration of 100 mL of Isovue 370 intravenous contrast according to standard protocol. Findings: Lower Chest: Normal. Liver: 0.8 cm faintly enhancing (series 3, image 69), better visualized in the multiphase CT of abdomen done on 07/08/2024. 0.8 cm enhancing lesion in hepatic segment 4A (series 3, image 27) better visualized in the multiphase CT of the abdomen done on 07/08/2024. Gallbladder and Bile Ducts: The gallbladder is absent. Spleen: Multiple calcified granulomas are noted in the spleen, likely sequelae of prior granulomatous disease. Pancreas: Normal. Adrenals: Normal. Kidneys: A subcentimeter hypoattenuating lesion in the lower pole of the left kidney is too small to characterize, but likely represents a cyst. No hydronephrosis. Right kidney is within normal limits. Gastrointestinal: The stomach and visualized loops of small bowel are unremarkable. Mild diverticulosis of the rectosigmoid is present. There is mild fat stranding around a short segment of the sigmoid colon seen in the left lower abdomen/pelvic (series 3, image 117) this could represent developing diverticulitis, no evidence of free air or fluid collection. The appendix is not seen; however, no inflammatory changes are seen in the right lower quadrant. Mesentery/Peritoneum/Retroperitoneum: Multiple prominent lymph nodes along the right abdomen, nonspecific. No associated fat stranding. Bladder: Normal. Reproductive Organs: The uterus is absent. Vasculature: No vascular abnormality is present. Bones: Bone windows demonstrate no suspicious lytic or blastic lesions. The visible osseous structures are intact. Soft tissues: Surgical changes of ventral hernia repair. Procedure Note Jose Hein MD - 08/19/2024 PROCEDURE: CT ABDOMEN PELVIS W CONTRAST, DATE/TIME OF EXAM: 08/19/2024 3:39 PM, LOCATION [facility] INDICATION: R10.11: RUQ pain ADDITIONAL CLINICAL INFORMATION: Ordering Provider Reason For Exam: ro liver etiology vs other Technologist Note: Additional: COMPARISON: CT abdomen and pelvis dated 07/08/2024 TECHNIQUE: CT of the abdomen and pelvis was performed following the uneventful administration of 100 mL of Isovue 370 intravenous contrast according to standard protocol. Findings: Lower Chest: Normal. Liver: 0.8 cm faintly enhancing (series 3, image 69), better visualized in the multiphase CT of abdomen done on 07/08/2024. 0.8 cm enhancing lesion in hepatic segment 4A (series 3, image 27)better visualized in the multiphase CT of the abdomen done on 07/08/2024. Gallbladder and Bile Ducts: The gallbladder is absent. Spleen: Multiple calcified granulomas are noted in the spleen, likely sequelaeof prior granulomatous disease. Pancreas: Normal. Adrenals: Normal. Kidneys: A subcentimeter hypoattenuating lesion in the lower pole of the leftkidney is too small to characterize, but likely represents a cyst. No hydronephrosis. Right kidney is within normal limits. Gastrointestinal: The stomach and visualized loops of small bowel are unremarkable. Mild diverticulosis of the rectosigmoid is present. There is mild fatstranding around a short segment of the sigmoid colon seen in the left lower abdomen/pelvic (series 3, image 117) this could represent developing diverticulitis, no evidence of free air or fluid collection. Theappendix is not seen; however, no inflammatory changes are seen in the rightlower quadrant. Mesentery/Peritoneum/Retroperitoneum: Multiple prominent lymph nodes along the right abdomen, nonspecific. No associated fat stranding. Bladder: Normal. Reproductive Organs: The uterus is absent. Vasculature: No vascular abnormality is present. Bones: Bone windows demonstrate no suspicious lytic or blastic lesions. The visible osseous structures are intact. Soft tissues: Surgical changes of ventral hernia repair. Impression: 1.Redemonstrated subcentimeter liver lesions, better evaluated in theprior CT abdomen multi phase to 07/08/2024. 2.Diverticulosis of the sigmoid colon with mild fat stranding adjacentin the left lower abdomen/pelvic without evidence of fluid collection orfree air, this could represent developing early acute diverticulitis. > Dictated by Nallely Keys MD (vice president pharmacy). IJose have personally reviewed and interpreted this examination/study. > Interpreting Provider: Jose Hein on 08/19/2024 3:59 PM us Mylene Alexis PA-C CT ORDERABLES Final Resul t * (ABNORMAL) URINALYSIS REFLEX MICROSCOPIC REFLEX CULTURE (08/19/2024 2:25 PM CDT) Color UA Yellow Yellow, Straw 08/19/2024 2:51 PM CDT [facility] Clarity UA Turbid(A) Clear 08/19/2024 2:51 PM CDT [facility] Glucose UA Normal Normal 08/19/2024 2:51 PM CDT [facility] Bilirubin UA Negative Negative 08/19/2024 2:51 PM CDT [facility] Ketone UA Negative Negative 08/19/2024 2:51 PM CDT [facility] Specific [place] UA 1.027 1.005 - 1.030 08/19/2024 2:51 PM CDT [facility] Blood UA Negative Negative 08/19/2024 2:51 PM CDT [facility] pH UA 5.5 5.0 - 9.0 pH 08/19/2024 2:51 PM CDT [facility] Protein UA Negative Negative 08/19/2024 2:51 PM CDT [facility] Urobilinogen UA Normal Normal mg/dL 08/19/2024 2:51 PM CDT [facility] Nitrite UA Negative Negative 08/19/2024 2:51 PM CDT [facility] Leukocyte UA 500 DANNY/uL(A) Negative 08/19/2024 2:51 PM CDT [facility] RBC UA 3-5 0 - 5 # /hpf 08/19/2024 2:51 PM CDT [facility] WBC UA 11-20(A) 0 - 5 # /hpf 08/19/2024 2:51 PM CDT [facility] Bacteria UA 1+(A) None Seen 08/19/2024 2:51 PM CDT [facility] Squamous Epithelial Cells 11-20 0 - 5 /hpf 08/19/2024 2:51 PM CDT [facility] Mucus UA 3+ /LPF 08/19/2024 2:51 PM CDT [facility] Urine URINE SPECIMEN OBTAINED BY CLEAN CATCH PROCEDURE / Unknown Collection / Unknown 08/19/2024 2:25 PM CDT 08/19/2024 2:30 PM CDT us Mylene Alexis PA-C LAB - URINALYSIS ORDERABLES Final Result Performing Organization Address City/[facility]/ZIP Co de Phone Number [facility] [address] [place] [address], [place] [phone] * CULTURE URINE (08/19/2024 2:25 PM CDT) Culture Urine 10,000-50,000 CFU/mL urogenital armand CONCEPCIÓN 08/21/2024 12:03 PM CDT [facility] Urine URINE SPECIMEN OBTAINED BY CLEAN CATCH PROCEDURE / Unknown Collection / Unknown 08/19/2024 2:25 PM CDT 08/19/2024 2:30 PM CDT us Mylene Alexis PA-C LAB - MICROBIOLOGY ORDERABL ES Final Result [facility] [address] [place] [address], [place] [phone] * SARS-COV-2 (COVID-19)+INFLU A+B PCR RAPID (08/19/2024 2:21 PM CDT) COVID-19 PCR Not detected Not detected 08/20/19 3:12 PM CDT [facility] Influenza A Rapid MIGUEL Not Detected Not Detected 08/19/2024 3:12 PM CDT [facility] Influenza B MIGUEL Rapid Not Detected Not Detected 08/19/2024 3:12 PM CDT [facility] Microbiology SPECIMEN FROM NASOPHARYNGEAL STRUCTURE / Unknown Collection / Unknown 08/19/2024 2:21 PM CDT 08/19/2024 2:30 PM CDT Narrative [facility] - 08/19/2024 3:12 PM CDT Influenza assay performed by Nucleic Acid Amplification. Results do not exclude the possibility of a mixed viral infection. NOTE: Detecting and identifying specific viral nucleic acids from individuals exhibiting signs and symptoms of respiratory infection aids in the diagnosis of respiratory infection, if used in conjunction with other clinical and laboratory findings. The results of this test should not be used as the sole basis for diagnosis, treatment, or patient management decisions. This nucleic acid amplification assay performance was validated by [facility]. This test has been authorized by the Food and Drug administration (FDA)under an Emergency Use Authorization (EUA). This test has been validated in accordance with the FDA's guidance document Policy for Diagnostic Testing in Laboratories Certified to perform High Complexity Testing under CLIA prior to Emergency Use Authorization for Coronavirus Disease-2019 during the Public Health Emergency issued on June 25, 2019. FDA independent review of this validation is pending. This test is only authorized for the duration of time the declaration that circumstances exist justifying the authorization of emergency use of in vitro diagnostic tests for detection of SARS-CoV-2 virus and/or diagnosis of COVID-19 infection under section 564(b)(1) of the Act, 21 U.S.C 360bbb-3 (b)(1), unless the authorization is terminated or revoked sooner. Fact Sheets for this EUA assay are available upon request. Mylene Alexis PA-C LAB - MICROBIOLOGY ORDERABL ES Final Result Performing Organization Address [facility]/ZIP Co de Phone Number [facility] [address] [place] [address], [facility] [phone] * HCG BETA BLOOD QUANTITATIVE (08/19/2024 2:20 PM CDT) Beta-hCG Total Quantitative <3 mIU/mL 08/19/2024 3:16 PM CDT [facility] Comment: HCG Numeric Result Interpretation: Non- Females: < 5 mIU/mL Post-Menopausal Females: < 7 mIU/mL This assay is cleared for use in the early detection of only. It is not approved for any other uses such as tumor marker screening, tumor marker monitoring, etc. and should not be used for any other purposes. Blood BLOOD SPECIMEN / Unknown Venipuncture / Unknown 08/19/2024 2:20 PM CDT 08/19/2024 2:34 PM CDT Mylene Alexis PA-C LAB - CHEMISTRY ORDERABLES Final Result Performing Organization Address [facility] Co de Phone Number [address] [address], [facility] [phone] * CT Abdomen Multi Phase W Cont [...] follow-up imaging. Report dictated by Bethanie WHITTINGTON, FR (radiology fellow). IJose have personally reviewed and interpreted this examination/study. > Interpreting Provider: Jose Hein on 07/08/2024 10:39 AM Narrative 07/08/2024 10:39 AM CDT PROCEDURE: CT ABDOMEN MULTI PHASE W CONT, DATE/TIME OF EXAM: 07/08/2024 9:44 AM, LOCATION [facility] INDICATION: K76.0: Metabolic dysfunction-associated steatotic liver disease [...] DATE/TIME OF EXAM: 07/08/2024 9:44 AM, LOCATION [facility] INDICATION: K76.0: Metabolic dysfunction-associated steatotic liver disease [...] follow-up imaging. Report dictated by Bethanie WHITTINGTON, [facility] (radiology fellow). I, Jose Hein have personally reviewed and interpreted this examination/study. > Interpreting Provider: Jose Hein on 07/08/2024 10:39 AM [facility] CT ORDERABLES Final Result * LIPID PROFILE (11/23/2023 12:28 PM CDT) Cholesterol Total 139 <200 mg/dL 11/23/2023 2:29 PM [facility] HDL 51 >40 mg/dL 11/23/2023 2:29 PM [facility] Comment: ATP III Classification of HDL Cholesterol: <40 mg/dL: Considered a major risk factor. >60 mg/dL: Considered a negative risk factor. LDL Calculated 66 <100 mg/dL 11/23/2023 2:29 PM [facility] Comment: ATP III Classification of LDL Cholesterol: <100 mg/dL: Optimal 100 - 129 mg/dL: Near Optimal/Above Optimal 130 - 159 mg/dL: Borderline High 160 - 189 mg/dL: High >190 mg/dL: Very High Triglycerides 112 <150 mg/dL 11/23/2023 2:29 PM CDT [facility] Comment: ATP III Classification of Triglycerides: <150 mg/dL: Normal 150 - 199 mg/dL: Borderline High 200 - 400 mg/dL: High >500 mg/dL: Very High Blood BLOOD SPECIMEN / Unknown Lab Venipuncture / Unknown 11/23/2023 12:28 PM CDT 11/23/2023 1:12 PM CDT Galdino Reynoso APRN-COSMETIC SALES ASSISTANT LAB - CHEMISTRY ORDE ED Final Result [facility] [address] [place] [address], [facility] [phone] from Last 3 Months or Most Recently Relevant to Health Maintenance Insurance [facility] Advance Directives * Full Code (Latest Code Status on File) Date Activated Date Inactivated Comments 08/19/2024 11:21 PM 08/23/2024 3:55 PM * Full Code Date Activated Date Inactivated Comments 08/28/2020 10:32 AM 08/29/2020 4:37 PM * Full Code Date Activated Date Inactivated Comments 10/04/2018 3:46 PM 10/07/2018 5:15 PM Care Teams Delivery Motorcycle Driver Relationship Specialty Start Date End Date Jean Carlos Covarrubias MD [address] [place] [phone] PCP - General Family Medicine 04/22/23
--- OUTSIDE RECORDS SUMMARY | 2024-09-26 12:15 | XMS_ITS | Encounter Summary ---
Author Organization [facility] Address [address] [place] [address] Phone Care Team Providers Care Ui Lead Developer Name Role Phone Jean Carlos Covarrubias MD Primary Care Provider Encounter Details Date Type Department Care Team (Late st Contact Info) Description 03/07/2022 Lab Requisition [facility] [address] [place] [address] Marisela Nazario, CHIEF VENDOR QUALITY, AIRCONDITIONING DRAFTING OFFICER [address] [place] [address] Contact with and (suspected) exposure [...] Coronavirus/COVID-19? No / Unsure 03/06/2022 2:25 PM MACHINE PAINT MIXER documented as of this encounter Plan of Treatment Not on file documented as of this encounter Procedures Procedure Name Priority Date/Time Associated Diagnosis Comments HIV 1 & 2 ANTIBODY & ANTIGEN SCREEN Routine 03/06/2022 3:20 AM MACHINE PAINT MIXER Contact with and (suspected) exposure to potentially hazardous body fluids HEP B SURFACE ANTIBODY - BLOOD PATH Routine 03/06/2022 3:20 AM MACHINE PAINT MIXER Contact with and (suspected) exposure to potentially hazardous body fluids HEPATITIS C ANTIBODY Routine 03/06/2022 3:20 AM MACHINE PAINT MIXER Contact with and (suspected) exposure to potentially hazardous body fluids BLOODBORNE PATHOGEN EXPOSED PATIENT PROFILE Routine 03/06/2022 3:20 AM MACHINE PAINT MIXER Contact with and (suspected) exposure to potentially hazardous body fluids documented in this encounter Results * HIV 1 & 2 ANTIBODY & ANTIGEN SCREEN (03/06/2022 3:20 AM MACHINE PAINT MIXER) HIV 1 & 2 ANTIBODY & ANTIGEN SCREEN NON DETECTED NON DETECTED [facility] ARCH [id number] B 03/07/2022 2:50 PM MACHINE PAINT MIXER [facility] Blood Venipuncture / Unknown 03/06/2022 3:20 AM MACHINE PAINT MIXER 03/07/2022 9:17 AM MACHINE PAINT MIXER us Marisela Nazario CHIEF VENDOR QUALITY, AIRCONDITIONING DRAFTING OFFICER LAB SEND OUTS Fin al Result Performing Organization Address City/State/[facility] Co de Phone Number [facility] [address] [place] [address], * HEP B SURFACE ANTIBODY - BLOOD PATH (03/06/2022 3:20 AM MACHINE PAINT MIXER) HEPATITIS B SURFACE ANTIBODY <8.00 mIU/mL [facility] ARCH [id number] B 03/07/2022 2:55 PM MACHINE PAINT MIXER [facility] Comment:Individual is consid ered not immune to HBV infection. Blood Venipuncture / Unknown 03/06/2022 3:20 AM MACHINE PAINT MIXER 03/07/2022 9:18 AM MACHINE PAINT MIXER us Marisela Nazario APRN, CNP HEMATOLOGY ORDERABL ES Final Result Performing Organization Address City/[facility] Co de Phone Number [facility] [address] [place] [address], [place] * HEPATITIS C ANTIBODY (03/06/2022 3:20 AM MACHINE PAINT MIXER) hepatitis C antibody 0.19 <1 S/CO [facility] ARCH [id number] B 03/07/2022 2:48 PM MACHINE PAINT MIXER [facility] Comment: Signal/Cutoff ratio < 0.79 is Nondetected Signal/Cutoff ratio 0.80-0.99 is Grayzone Signal/Cutoff ratio > 0.99 is Detected Supplemental assays are recommended if signal/cutoff ratio is >/=1.00. Signal/cutoff ratio result >/= 5.00 is 97% predictive of positivity for recombinant immunoblot assay (RIBA) and will be reported to the [place] Department of Public Health as required. Blood Venipuncture / Unknown 03/06/2022 3:20 AM MACHINE PAINT MIXER 03/07/2022 9:18 AM MACHINE PAINT MIXER us Marisela Nazario APRN, CNP CHEMISTRY ORDERABLE S Final Result Performing Organization Address [facility] de Phone Number [facility] [address] [place] [address], [place] documented in this encounter Visit Diagnoses Diagnosis Contact with and (suspected) exposure to potentially hazardous body fluids Personal history of contact with and (suspected) exposure to potentially hazardous body fluids documented in this encounter Care Teams Ui Lead Developer Relationship Specialty Start Date End Date Jean Carlos Covarrubias MD [address] [place] [address] PCP - General Pediatrics 11/26/17 documented as of this encounter
--- OUTSIDE RECORDS SUMMARY | 2024-09-26 12:15 | XMS_ITS | Clinical Summary ---
Author Organization [facility] Address [address] [place] [address] Phone Care Team Providers Care Chef French Name Role Phone Jean Carlos Covarrubias MD [...] 107 kg (236 lb) 04/11/2024 8:01 AM COVERSTITCH MACHINE OPERATOR Height 157.5 cm (5' 2) 04/11/2024 8:01 AM COVERSTITCH MACHINE OPERATOR Body Mass Index 43.16 04/11/2024 8:01 AM COVERSTITCH MACHINE OPERATOR Plan of Treatment Health Maintenance Due Date [...] Virus (HCV) Screening Completed 10/16/2022, 03/06/2022, 03/06/2022 Human Papillomavirus (HPV) Immunization Aged Out No longer eligible based on patient's age to complete this topic Meningococcal Immunization (ACWY) Aged Out No longer eligible based on patient's age to complete this topic Pneumococcal Immunization Combined Aged Out No longer eligible based on patient's age to complete this topic Rotavirus Immunization Aged Out No lo nger eligible based on patient's age to complete this topic Medical Devices Implanted Type Area Rn Cardiac Rehab Device Identifier Shelf Expiration Date Model / Serial / Lot Treia Soft With Side Holes Ureteral Stent 6f X 24 Cm Implanted:Qty: 1 on 05/18/2020 by Jhony Miranda MD at [facility] Right: Ureter [employer] 01/01/2023 [id number] / [id number] / [id number] Description:Special PER [employer] Procedures Procedure Name Priority Date/Time Associated Diagnosis Comments HEPATITIS C ANTIBODY Routine 10/16/2022 6:50 PM CDT Personal history of exposure to potentially hazardous body fluids from Last 3 Months or Most Recently Relevant to Health Maintenance Results * HEPATITIS C ANTIBODY (10/16/2022 6:50 PM CDT) hepatitis C antibody 0.14 <1 S/CO [facility] ARCH [id number] B 10/17/2022 5:53 PM CDT [facility] Comment: Signal/Cutoff ratio < 0.79 is Nondetected Signal/Cutoff ratio 0.80-0.99 is Grayzone Signal/Cutoff ratio > 0.99 is Detected Supplemental assays are recommended if signal/cutoff ratio is >/=1.00. Signal/cutoff ratio result >/= 5.00 is 97% predictive of positivity for recombinant immunoblot assay (RIBA) and will be reported to the [place] Department of Public Health as required. Blood Venipuncture / Unknown 10/16/2022 6:50 PM CDT 10/16/2022 6:50 PM CDT us Corbin Zhou PAC CHEMISTRY ORDERABLES Final R esult Performing Organization Address City/State/[facility] Co de Phone Number [facility] [address] [place] [address], from Last 3 Months or Most Recently Relevant to Health Maintenance Insurance [facility] [employer] * Guarantor: [facility] Account Type Relation to Patient Date of Phone Billing Address Institutional Other [address] [place] [address] [facility] Advance Directives Documents on File Type Date Recorded Patient Boat Crew Deck Hand Expl anation Other Advance Directive 09/27/2021 1:23 PM wireless event monitoring Care Teams Chef French Relationship Specialty Start Date End Date Jean Carlos Covarrubias MD [address] [place] [address] PCP - General Pediatrics 11/26/17
--- OUTSIDE RECORDS SUMMARY | 2024-09-26 12:15 | XMS_ITS | Encounter Summary ---
Author Organization [facility] Address [address] [place] [address] Phone Care Team Providers Care Associate Director Regulatory Affairs Name Role Phone Jean Carlos Covarrubias MD Primary Care Provider Encounter Details Date Type Department Care Team (Late st Contact Info) Description 04/04/2024 [facility] [address] [place] [address] Jean Carlos Covarrubias MD [address] [place] [address] Nausea and vomiting, unspecified vomiting [...] Primary documented in this encounter Care Teams Associate Director Regulatory Affairs Relationship Specialty Start Date End Date Jean Carlos Covarrubias MD [address] [place] [address] PCP - General Pediatrics 11/26/17 documented as of this encounter
--- OUTSIDE RECORDS SUMMARY | 2024-09-26 12:15 | XMS_ITS | Referral Summary ---
Author Organization [facility] Address [address] [place] [address] Care Team Providers Care Rn Utilization Management Um Name Role Phone Jean Carlos Covarrubias MD Primary Care Provide r Fco Florez MD Unavailable [phone] Encounters Date Type Department Care Team Description 07/25/[address] [address] Coby Short from Last 3 [...] 01/20/2022 Assessment & Plan (05/19/2022 3:32 PM MORTGAGE LOAN PROCESSOR): Will obtain xrays though favor muscular and [...] needed. Assessment & Plan (06/16/2023 3:54 PM MORTGAGE LOAN PROCESSOR): Lately notes head/scalp pain and other intermittent aches/pains which primarily seem to correlate with working out. She has jointed a [employer] gym, discussed that while I am quite happy that she is exercising, generally would prefer a lower impact activity. 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 Discussed that we could try increasing [...] needed. Assessment & Plan (06/30/2022 12:32 PM MORTGAGE LOAN PROCESSOR): Widespread pain improved with the addition of [...] needed. Assessment & Plan (05/19/2022 3:32 PM MORTGAGE LOAN PROCESSOR): At this time will discontinue Celexa and [...] on file Legal Sex Female 1:50 AM MORTGAGE LOAN PROCESSOR Gender Identity Not on file Sexual Orientation Not on file Last Filed Vital Signs Vital Sign Reading Time Taken Comments Blood Pressure 126/66 03/21/2024 1:30 PM M[employer]GAGE LOAN PROCESSOR Pulse 57 03/21/2024 1:30 PM M[employer]GAGE LOAN PROCESSOR Temperature 36.8 C (98.2 F) 03/21/2024 5:12 AM M[employer]GAGE LOAN PROCESSOR Respiratory Rate 12 03/21/2024 1:30 PM MORTGAGE LOAN PROCESSOR Oxygen Saturation 95% 03/21/2024 1:30 PM MORTGAGE LOAN PROCESSOR Inhaled Oxygen Concentration - - Weight 108.4 kg (239 lb) 03/21/2024 3:37 AM MORTGAGE LOAN PROCESSOR Height 157.5 cm (5' 2) 03/21/2024 3:37 AM M[employer]GAGE LOAN PROCESSOR Body Mass Index 43.71 03/21/2024 3:37 AM MORTGAGE LOAN PROCESSOR Plan of Treatment Not on file [place] [employer] [place] [employer] [place] [employer] [place] [facility] Care Teams Rn Utilization Management Um Relationship Specialty Start Date End Date Jean Carlos Covarrubias MD [address] [place] [address] PCP - General 08/03/16 Fco Florez MD [address] [place] [address] Consulting Physician Rheumatology 12/19/20
[2024-09-26 12:39] LABS: Basophils Absolute Auto 0.02 K/mm3 (0.00-0.10); Basophils Percent Auto 0.3 % (0.0-1.0); Eosinophils Absolute Auto 0.15 K/mm3 (0.02-0.50); Hematocrit 38.5 % (35.0-49.0); Immature Granulocyte Absolute 0.04 K/mm3 (0.00-0.00); Immature Granulocyte Percent A 0.5 % (0.0-0.0); Lymphocytes Absolute Auto 2.34 K/mm3 (1.10-4.50); Lymphocytes Percent Auto 30.5 % (18.0-42.0); Mean Corpuscular HGB Conc 31.2 g/dL (32-36); Mean Corpuscular Hemoglobin 25.2 pg (27.0-31.0); Mean Corpuscular Volume 80.7 fL (78.0-102.0); Mean Platelet Volume 9.8 fl (9.2-11.8); Monocytes Percent Auto 6.5 % (2.0-11.0); Neutrophils Absolute Auto 4.63 K/mm3 (1.70-7.20); Neutrophils Percent Auto 60.2 % (50.0-70.0); Platelet Count Result 353 K/mm3 (150-420); Red Blood Count 4.77 M/mm3 (4.20-5.40); Red Cell Distribution Width 13.9 % (11.6-14.4); White Blood Count 7.7 K/mm3 (4.8-10.8)
[2024-09-26 12:47] LABS: Alanine Aminotransferase 46 U/L (6-35); Alkaline Phosphatase 140 U/L (38-126); Anion Gap 4 mmol/L (4-12); Aspartate Amino Transferase 33 U/L (14-36); Bilirubin,Total 0.5 mg/dL (0.2-1.3); Blood Urea Nitrogen 13 mg/dL (7-17); Carbon Dioxide 31 mmol/L (22-30); Chloride 105 mmol/L (98-107); Creatine Kinase 46 U/L (30-135); Estimated Glomerular Filt Rate > 60; Glucose 104 mg/dL (65-110); Osmolality Calculated 290 mOsm/kg (285-295); Potassium 4.2 mmol/L (3.4-5.0); Sodium 140 mmol/L (137-145); Total Protein 7.4 g/dL (6.3-8.2)
[2024-09-26 12:58] LABS: Troponin I < 0.012 ng/mL (0.000-0.034)
[2024-09-26 13:35] LABS: Creatine Kinase MB < 0.50 ng/mL (0.00-5.00)
== END 2024-09-26 12:11 | disposition home or self-care (01) ==
LOC: CHSLAB 12:12
PROVIDERS: PCP Family Medicine; Visit Provider Family Medicine
DX: I10 Essential (primary) hypertension (principal); R07.89 Other chest pain
CPT/HCPCS: 36415; 80053; 82550; 82553; 84484; 85025